=== PATIENT | male | born 1940 | race Caucasian/White ===

== ENCOUNTER → 2017-08-25 | Outpatient (CLI) | payer MEDICARE, BC | END | disposition home or self-care (01) | LOC: LABWHC1 07:43 | PROVIDERS: ATTEND Internal Medicine | DX: G52.9 Cranial nerve disorder, unspecified (principal) | CPT/HCPCS: 36415; 82565; 84520 ==

== ENCOUNTER → 2017-08-26 | Outpatient (CLI) | payer MEDICARE, BC ==
--- NOTE | 2017-08-26 08:43 | MR ---
EXAMINATION TYPE: MR brain wo/w con DATE OF EXAM: 08/26/2017 COMPARISON: 11/27/2015 HISTORY: 77-year-old male cranial nerve disorder unspecified, dizziness TECHNIQUE: Multiplanar, multisequence images of the brain and brainstem were acquired before and aft er administration of 7 mL IV Gadavist. Diffusion weighted imaging is performed. FINDINGS: No evidence for acute infarction, hemorrhage, mass, mass effect, midline shift, herniation, effacemen t of basal cisterns, or extra-axial fluid collection. There is moderate generalized supratentorial volume loss with secondary mild ventriculomegaly. Major intracranial flow voids are intact. Dominant left vertebral artery. T2/FLAIR weighted sequences show moderate scattered burden of T2 bright white matter change in both c erebral hemispheres in the subcortical, deep white matter, and periventricular regions. These changes are minimally increased from the prior exam. Midline structures demonstrate partially empty sella and otherwise normal morphology. The craniocerv ical junction is normal. No cerebellopontine angle mass or lesion in the internal auditory canal. Post contrast images demonstrate no evidence of pathologic enhancement. Dural venous sinuses are pat ent. Small mucosal retention cyst along the floor of the right maxillary sinus. Mild mucosal thickening le ft ethmoid air cells. Globes are intact. IMPRESSION: 1. Similar moderate atrophy and mild ex vacuo ventriculomegaly. 2. Moderate scattered T2 bright white matter change, nonspecific, likely relating to changes of chron ic small vessel ischemic disease. Minimally increased from 2016. 3. No CP angle or IAC mass. 4. No abnormal enhancing lesions. No acute intracranial abnormality.
== END | disposition home or self-care (01) ==
LOC: RADMRIMAIN 07:10
PROVIDERS: ATTEND Nurse Practitioner Family
DX: G31.9 Degenerative disease of nervous system, unspecified (principal); R90.82 White matter disease, unspecified; G93.89 Other specified disorders of brain
CPT/HCPCS: 70553; A9581

== ENCOUNTER → 2020-05-08 | Outpatient (CLI) | payer MEDICARE | END | disposition home or self-care (01) | LOC: LABWHC1 11:15 | PROVIDERS: ATTEND Surgery | DX: Z20.822 Contact with and (suspected) exposure to COVID-19 (principal) | CPT/HCPCS: U0003; C9803; U0005 ==

== ENCOUNTER 2020-05-15 08:22 | Day surgery (SDC) | payer MEDICARE ==
[2020-05-13 09:43] VITALS: BMI 20.9
[~2020-05-15 08:22] MED LIST: LACTATED RINGERS 1,000 ML IV SCH; LIDOCAINE 1% (10MG/ML) FOR IV START INTRADERMA PRN
[2020-05-15 09:02] VITALS: TEMP 97.9
[2020-05-15] MEDS ORDERED: PHENYLEPHRINE-0.9% NACL SYG 1,000 MCG/10 ML SYRINGE ONE (09:02)
[2020-05-15] MEDS ORDERED: PROPOFOL 10 MG/ML 20 ML VIAL IV ONE (09:02)
--- NOTE | 2020-05-15 09:05 | P.GSHP ---
History of Present Illness H&P Date: 05/15/20 80-year-old male presents today for a colonoscopy. He has had a recent positive ColoGuard test. He admits to a small amount of blood in his stool. His last colonoscopy was approximately 6 years ago. 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,parkinson's,gout,vaccinated w/ both covid vaccines,glaucoma liza eyes,prostate CA History of Any Multi-Drug Resistant Organisms: None Reported Past Surgical History: Hernia Repair, Prostate Surgery Additional Past Surgical History / Comment(s): prostatectomy Past Anesthesia/Blood Transfusion Reactions: No Reported Reaction Smoking Status: Never smoker - Past Family History Mother Family Medical History: No Reported History Father Family Medical History: Cancer Additional Family Medical History / Comment(s): blood CA Medications and Allergies Home Medications Medication Instructions Recorded Confirmed Type Cholecalciferol [Vitamin D3 (25 25 mcg PO DAILY 05/13/20 05/13/20 History Mcg = 1000 Iu)] Donepezil HCl [Aricept] 10 mg PO HS 05/13/20 05/13/20 History Ginkgo Biloba [place] Extract [Ginkgo 120 mg PO DAILY 05/13/20 05/13/20 History Biloba] Latanoprost Ophth [Xalatan 0.005%] 1 drops BOTH EYES HS 05/13/20 05/13/20 History Memantine HCl 10 mg PO BID 05/13/20 05/13/20 History Naproxen Sodium [Aleve] 220 mg PO BID 05/13/20 05/13/20 History Psyllium Husk (with Sugar) 1 tsp PO HS 05/13/20 05/13/20 History [Metamucil Powder] Purge Supplement 2 tab PO DAILY 05/13/20 05/13/20 History Timolol 0.5% Ophth Soln [Timoptic 1 drop BOTH EYES QAM 05/13/20 05/13/20 History 0.5% Ophth Soln] Turmeric Root Extract [Turmeric] 3,000 mg PO DAILY 05/13/20 05/13/20 History Vitamin B-50 1 tab PO DAILY 05/13/20 05/13/20 History polyethylene glycoL 3350 [Miralax] 17 gm PO HS 05/13/20 05/13/20 History Allergies Allergy/AdvReac Type Severity Reaction Status Date / Time No Known Allergies Allergy Verified 05/15/20 08:41 Surgical - Exam Osteopathic Statement: *. No significant issues noted on an osteopathic structural exam other than those noted in the History and Physical/Consult. Vital Signs Temp Pulse Resp BP Pulse Ox 97.9 F 60 18 142/79 97 05/15/20 09:00 05/15/20 09:00 05/15/20 09:00 05/15/20 09:00 05/15/20 09:00 - General well developed, well nourished - ENT decreased hearing - Neck trachea midline - Abdomen Abdomen: soft, non tender - Psychiatric oriented to time, oriented to person, oriented to place Assessment and Plan Plan: 80-year-old male with positive Cologuard test. Plan is for colonoscopy. Risks, benefits and alternatives were provided to the patient. He did provide consent prior to attending the endoscopy suite.
--- NOTE | 2020-05-15 09:29 | P.PCN ---
Date of Procedure: 05/15/20 Preoperative Diagnosis: Positive Cologuard test Postoperative Diagnosis: Sigmoid colon polyp Diverticulosis Procedure(s) Performed: Colonoscopy with hot snare polypectomy Anesthesia: MAC Surgeon: Cayla Castillo Pathology: other (Sigmoid colon polyp) Condition: stable Disposition: same day Indications for Procedure: 80-year-old male with recent positive cologuard test. He also admits to occasional small amount of blood in his stool. Last colonoscopy was 6 years ago. Risks, benefits and alternatives to the procedure were provided to the patient. He did provide consent prior to attending the endoscopy suite. Operative Findings: Sigmoid colon polyp Diverticulosis Description of Procedure: The patient was brought into the endoscopy suite. He was then placed in left lateral decubitus position and adequate sedation was achieved using conscious sedation. A digital rectal exam was performed and mild internal hemorrhoids were palpated. An endoscope was then placed in the rectum and advanced to the cecum as identified by landmarks including the appendiceal orifice and the ileocecal valve. The prep was good. The colonoscope was then slowly withdrawn, examining for any mucosal abnormalities. The cecum, ascending, transverse, descending and sigmoid colon were visualized adequately. There were no large neoplastic lesions throughout the colon. A small polyp was noted in the sigmoid colon. This was removed with hot snare polypectomy. Significant amount of diverticulosis was noted scattered throughout the descending and sigmoid colon. Retroflexion was performed in the rectum and internal hemorrhoids were visible. Excess air was removed, the colonoscope withdrawn and the procedure terminated. The patient was then transferred to the recovery unit in stable condition. Repeat colonoscopy should be performed based on patient's symptoms due to his age.
[2020-05-15 09:30] VITALS: RESP 16
[2020-05-15 09:49] VITALS: BP 117/56; PULSE 64
== END 2020-05-15 10:14 | disposition home or self-care (01) ==
LOC: ORWHC2ENDO 08:22
PROVIDERS: ATTEND Surgery
DX: D12.5 Benign neoplasm of sigmoid colon (principal); K57.31 Diverticulosis of large intestine without perforation or abscess with bleeding; H40.9 Unspecified glaucoma; G47.52 REM sleep behavior disorder; G20 Parkinson's disease; F02.80 Dementia in other diseases classified elsewhere, unspecified severity, without behavioral disturbance, psychotic disturbance, mood disturbance, and anxiety; M10.9 Gout, unspecified; Z98.890 Other specified postprocedural states; Z85.46 Personal history of malignant neoplasm of prostate; Z90.79 Acquired absence of other genital organ(s); Z80.7 Family history of other malignant neoplasms of lymphoid, hematopoietic and related tissues; Z79.899 Other long term (current) drug therapy; Z79.1 Long term (current) use of non-steroidal anti-inflammatories (NSAID)
CPT/HCPCS: 88305; 45385; J2370; J2704

== ENCOUNTER 2021-08-22 13:52 | Inpatient (IN) | payer MEDICARE ==
--- NOTE | 2021-08-22 15:01 | ED ---
URI HPI - General Chief Complaint: Upper Respiratory Infection Stated Complaint: SOB, weakness Time Seen by Provider: 08/22/21 14:04 Source: patient, family Mode of arrival: wheelchair Limitations: no limitations - History of Present Illness Initial Comments: Patient is an 81-year-old male with history of Parkinson's presenting with chief complaint of URI-like symptoms. His at bedside states that earlier in the week she came down with cold, and now he is starting to have the same symptoms. He has sounded congested, has been having a cough but he has not been able to produce sputum, and generalized weakness. His states that there has been no sudden change in his mental status. She states that today she noticed he had a fever. Denies any chest pain, shortness of breath, sore throat, dysphagia, headache, vision or hearing changes, abdominal pain, vomiting, diarrhea, dysuria, hematuria. - Related Data Home Medications Medication Instructions Recorded Confirmed Cholecalciferol [Vitamin D3 (25 25 mcg PO DAILY 05/13/20 05/15/20 Mcg = 1000 Iu)] Donepezil HCl [Aricept] 10 mg PO HS 05/13/20 05/15/20 Latanoprost Ophth [Xalatan 0.005%] 1 drops BOTH EYES HS 05/13/20 05/15/20 Memantine HCl 10 mg PO BID 05/13/20 05/15/20 Timolol 0.5% Ophth Soln [Timoptic 1 drop BOTH EYES QA 05/13/20 05/15/20 0.5% Ophth Soln] Turmeric Root Extract [Turmeric] 3,000 mg PO DAILY 05/13/20 05/15/20 Vitamin B-50 1 tab PO DAILY 05/13/20 05/15/20 polyethylene glycoL 3350 [Miralax] 17 gm PO HS 05/13/20 05/15/20 Carbidopa-Levodopa 25-100 mg 1 tab PO DAILY@0800 08/22/21 08/22/21 [Sinemet 25-100] Carbidopa-Levodopa 25-100 mg 2 tab PO DAILY@1300 08/22/21 08/22/21 [Sinemet 25-100] Ginkgo Biloba [place] Extract [Ginkgo 125 mg PO DAILY 08/22/21 08/22/21 Biloba] allopurinoL [Allopurinol] 100 mg PO W/SUPPER 08/22/21 08/22/21 Allergies Allergy/AdvReac Type Severity Reaction Status Date / Time No Known Allergies Allergy Verified 08/22/21 16:06 Review of Systems ROS Statement: Those systems with pertinent positive or pertinent negative responses have been documented in the HPI. ROS Other: All systems not noted in ROS Statement are negative. Past Medical History Past Medical History: Dementia Additional Past Medical History / Comment(s): Parkinson History of Any Multi-Drug Resistant Organisms: None Reported Past Surgical History: Hernia Repair, Prostate Surgery Past Psychological History: No Psychological Hx Reported Smoking Status: Never smoker Past Alcohol Use History: None Reported Past Drug Use History: None Reported General Exam Limitations: altered mental status (Due to Parkinson's), physical limitation (Due to Parkinson's) General appearance: alert, in no apparent distress Head exam: Present: atraumatic, normocephalic, normal inspection Eye exam: Present: normal appearance, EOMI. Absent: scleral icterus ENT exam: Present: normal exam, normal oropharynx, mucous membranes moist, TM's normal bilaterally, normal external ear exam Neck exam: Present: normal inspection. Absent: tenderness Respiratory exam: Present: rales. Absent: respiratory distress, wheezes, rhonchi, stridor Cardiovascular Exam: Present: regular rate, normal rhythm, normal heart sounds. Absent: systolic murmur, diastolic murmur, rubs, gallop, clicks GI/Abdominal exam: Present: soft, normal bowel sounds. Absent: distended, tenderness, guarding, rebound, rigid Extremities exam: Present: normal inspection, full ROM. Absent: tenderness Neurological exam: Present: alert, altered ( and son at bedside states that this is his baseline), CN II-XII intact Expanded Speech: Present: fluid speech Cranial nerves: EOM's Intact: Normal, Tongue Deviation: Normal, Facial Sensation: Normal Motor strength exam: RUE: 5, LUE: 5, RLE: 5, LLE: 5 Eye Response: (4) open spontaneously Motor Response: (6) obeys commands Verbal Response: (5) oriented [place] Total: 15 Psychiatric exam: Present: normal affect, normal mood Skin exam: Present: warm, dry, intact, normal color. Absent: rash Course Vital Signs 08/22/21 08/22/21 13:59 17:35 Temperature 98.9 F Pulse Rate 88 78 Respiratory 22 18 Rate Blood Pressure 145/79 141/96 O2 Sat by Pulse 98 97 Oximetry Medical Decision Making - Medical Decision Making Patient is an 81-year-old male with history of Parkinson's presenting with chief complaint of fever and productive cough. His who is has recently been ill states that he is also had some increased generalized weakness. On examination there are some rales on auscultation of the lungs. At this time he is afebrile. He is negative for Covid and influenza. Chest x-ray suggests congestive heart failure with small pleural effusions, atheromatous aorta. Acute pneumonia is not excluded. Lab work obtained shows no elevated white count, BNP and troponin are WNL. Creatinine BUN a mildly elevated, no recent values for comparison. Given the patient's presentation, I feel this is more likely pneumonia, and given his advanced age in Parkinson's, I feel his best outcome would come from inpatient admission. I spoke to Harper Torres from [facility] who agreed to admit the patient. I discussed this plan with the patient and his family, they conveyed verbal understanding and agreed to the plan. I discussed this case with my attending Dr. Escalona. - Lab Data Result diagrams: 08/22/21 15:48 08/22/21 15:48 Lab Results 08/22/21 08/22/21 08/22/21 Range/Units 14:32 14:32 15:20 WBC (3.8-10.6) k/uL RBC (4.30-5.90) m/uL Hgb (13.0-17.5) gm/dL Hct (39.0-53.0) % MCV (80.0-100.0) fL MCH (25.0-35.0) pg MCHC (31.0-37.0) g/dL RDW (11.5-15.5) % Plt Count (150-450) k/uL MPV Neutrophils % % Lymphocytes % % Monocytes % % Eosinophils % % Basophils % % Neutrophils # (1.3-7.7) k/uL Lymphocytes # (1.0-4.8) k/uL Monocytes # (0-1.0) k/uL Eosinophils # (0-0.7) k/uL Basophils # (0-0.2) k/uL Sodium (137-145) mmol/L Potassium (3.5-5.1) mmol/L Chloride (98-107) mmol/L Carbon Dioxide (22-30) mmol/L Anion Gap mmol/L BUN (9-20) mg/dL Creatinine (0.66-1.25) mg/dL Est GFR (CKD-EPI)AfAm (>60 ml/min/1.73 sqM) Est GFR (CKD-EPI)NonAf (>60 ml/min/1.73 sqM) Glucose (74-99) mg/dL Plasma Lactic Acid Calvin (0.7-2.0) mmol/L Calcium (8.4-10.2) mg/dL Total Bilirubin (0.2-1.3) mg/dL AST (17-59) U/L ALT (4-49) U/L Alkaline Phosphatase (38-126) U/L Troponin I (0.000-0.034) ng/mL NT-Pro-B Natriuret Pep pg/mL Total Protein (6.3-8.2) g/dL Albumin (3.5-5.0) g/dL Urine Color Yellow Urine Appearance Clear (Clear) Urine pH 6.5 (5.0-8.0) Ur Specific [place] 1.013 (1.001-1.035) Urine Protein Negative (Negative) Urine Glucose (UA) Negative (Negative) Urine Ketones Negative (Negative) Urine Blood Negative (Negative) Urine Nitrite Negative (Negative) Urine Bilirubin Negative (Negative) Urine Urobilinogen <2.0 (<2.0) mg/dL Ur Leukocyte Esterase Negative (Negative) Coronavirus (PCR) Not Detected (Not Detectd) Influenza Type A RNA Not Detected (Not Detectd) Influenza Type B (PCR) Not Detected (Not Detectd) 08/22/21 08/22/21 08/22/21 Range/Units 15:48 15:48 15:48 WBC 5.5 (3.8-10.6) k/uL RBC 4.53 (4.30-5.90) m/uL Hgb 13.7 (13.0-17.5) gm/dL Hct 40.9 (39.0-53.0) % MCV 90.3 (80.0-100.0) fL MCH 30.3 (25.0-35.0) pg MCHC 33.5 (31.0-37.0) g/dL RDW 12.4 (11.5-15.5) % Plt Count 183 (150-450) k/uL MPV 8.0 Neutrophils % 68 % Lymphocytes % 9 % Monocytes % 13 % Eosinophils % 4 % Basophils % 3 % Neutrophils # 3.7 (1.3-7.7) k/uL Lymphocytes # 0.5 L (1.0-4.8) k/uL Monocytes # 0.7 (0-1.0) k/uL Eosinophils # 0.2 (0-0.7) k/uL Basophils # 0.2 (0-0.2) k/uL Sodium 138 (137-145) mmol/L Potassium 4.6 (3.5-5.1) mmol/L Chloride 103 (98-107) mmol/L Carbon Dioxide 27 (22-30) mmol/L Anion Gap 8 mmol/L BUN 26 H (9-20) mg/dL Creatinine 1.29 H (0.66-1.25) mg/dL Est GFR (CKD-EPI)AfAm 60 (>60 ml/min/1.73 sqM) Est GFR (CKD-EPI)NonAf 52 (>60 ml/min/1.73 sqM) Glucose 89 (74-99) mg/dL Plasma Lactic Acid Calvin 1.2 (0.7-2.0) mmol/L Calcium 8.6 (8.4-10.2) mg/dL Total Bilirubin 0.3 (0.2-1.3) mg/dL AST 28 (17-59) U/L ALT 14 (4-49) U/L Alkaline Phosphatase 69 (38-126) U/L Troponin I (0.000-0.034) ng/mL NT-Pro-B Natriuret Pep pg/mL Total Protein 6.9 (6.3-8.2) g/dL Albumin 3.9 (3.5-5.0) g/dL Urine Color Urine Appearance (Clear) Urine pH (5.0-8.0) Ur Specific [place] (1.001-1.035) Urine Protein (Negative) Urine Glucose (UA) (Negative) Urine Ketones (Negative) Urine Blood (Negative) Urine Nitrite (Negative) Urine Bilirubin (Negative) Urine Urobilinogen (<2.0) mg/dL Ur Leukocyte Esterase (Negative) Coronavirus (PCR) (Not Detectd) Influenza Type A RNA (Not Detectd) Influenza Type B (PCR) (Not Detectd) 08/22/21 08/22/21 Range/Units 15:48 15:48 WBC (3.8-10.6) k/uL RBC (4.30-5.90) m/uL Hgb (13.0-17.5) gm/dL Hct (39.0-53.0) % MCV (80.0-100.0) fL MCH (25.0-35.0) pg MCHC (31.0-37.0) g/dL RDW (11.5-15.5) % Plt Count (150-450) k/uL MPV Neutrophils % % Lymphocytes % % Monocytes % % Eosinophils % % Basophils % % Neutrophils # (1.3-7.7) k/uL Lymphocytes # (1.0-4.8) k/uL Monocytes # (0-1.0) k/uL Eosinophils # (0-0.7) k/uL Basophils # (0-0.2) k/uL Sodium (137-145) mmol/L Potassium (3.5-5.1) mmol/L Chloride (98-107) mmol/L Carbon Dioxide (22-30) mmol/L Anion Gap mmol/L BUN (9-20) mg/dL Creatinine (0.66-1.25) mg/dL Est GFR (CKD-EPI)AfAm (>60 ml/min/1.73 sqM) Est GFR (CKD-EPI)NonAf (>60 ml/min/1.73 sqM) Glucose (74-99) mg/dL Plasma Lactic Acid Calvin (0.7-2.0) mmol/L Calcium (8.4-10.2) mg/dL Total Bilirubin (0.2-1.3) mg/dL AST (17-59) U/L ALT (4-49) U/L Alkaline Phosphatase (38-126) U/L Troponin I <0.012 (0.000-0.034) ng/mL NT-Pro-B Natriuret Pep 325 pg/mL Total Protein (6.3-8.2) g/dL Albumin (3.5-5.0) g/dL Urine Color Urine Appearance (Clear) Urine pH (5.0-8.0) Ur Specific [place] (1.001-1.035) Urine Protein (Negative) Urine Glucose (UA) (Negative) Urine Ketones (Negative) Urine Blood (Negative) Urine Nitrite (Negative) Urine Bilirubin (Negative) Urine Urobilinogen (<2.0) mg/dL Ur Leukocyte Esterase (Negative) Coronavirus (PCR) (Not Detectd) Influenza Type A RNA (Not Detectd) Influenza Type B (PCR) (Not Detectd) Disposition Clinical Impression: Pneumonia Disposition: ADMITTED IP TO THIS [facility] Condition: Good Is patient prescribed a controlled substance at d/c from ED?: No Referrals: Valencia Bolivar MD [Primary Care Provider] - 1-2 days Time of Disposition: 17:54 Decision to Admit Reason: Admit from EC Decision Date: 08/22/21 Decision Time: 17:54
--- NOTE | 2021-08-22 15:18 | XR ---
EXAMINATION TYPE: XR chest 2V DATE OF EXAM: 08/22/2021 COMPARISON: NONE HISTORY: Cough TECHNIQUE: 2 views FINDINGS: Heart is enlarged. There is some pulmonary vascular congestion. There is blunting of the co stophrenic angles. IMPRESSION: Congestive heart failure with small pleural effusions. Atheromatous aorta. Acute pneumoni a not excluded.
[2021-08-22 15:43] LABS: Appearance,Urine Clear (Clear); Bilirubin,Urine Negative (Negative); Blood,Urine Negative (Negative); Color,Urine Yellow; Glucose,Urine (UA) Negative (Negative); Ketones,Urine Negative (Negative); Leukocyte Esterase,Urine Negative (Negative); Nitrite,Urine Negative (Negative); PH, Urine 6.5 (5.0-8.0); Protein,Urine Negative (Negative); Specific Gravity,Urine 1.013 (1.001-1.035); Urobilinogen,Urine <2.0 mg/dL (<2.0)
[2021-08-22 16:23] LABS: Albumin 3.9 g/dL (3.5-5.0); Calcium 8.6 mg/dL (8.4-10.2); Potassium 4.6 mmol/L (3.5-5.1); Total Bilirubin 0.3 mg/dL (0.2-1.3); Total Protein 6.9 g/dL (6.3-8.2)
[2021-08-22 16:33] LABS: Basophils # (A) 0.2 k/uL (0-0.2); Basophils % (A) 3 %; Eosinophils # (A) 0.2 k/uL (0-0.7); Eosinophils % (A) 4 %; HCT 40.9 % (39.0-53.0); HGB 13.7 gm/dL (13.0-17.5); Lymphocytes # (A) 0.5 k/uL (1.0-4.8); Lymphocytes % (A) 9 %; MCH 30.3 pg (25.0-35.0); MCHC 33.5 g/dL (31.0-37.0); MCV 90.3 fL (80.0-100.0); Monocytes # (A) 0.7 k/uL (0-1.0); Monocytes % (A) 13 %; Neutrophils # (A) 3.7 k/uL (1.3-7.7); Neutrophils % (A) 68 %; Platelet Count 183 k/uL (150-450); RBC 4.53 m/uL (4.30-5.90); RDW 12.4 % (11.5-15.5); WBC 5.5 k/uL (3.8-10.6)
[2021-08-22] MEDS ORDERED: cefTRIAXone IN SWFI 1,000 MG/10 ML SYRINGE IVP STA (17:44)
[2021-08-22] MEDS ORDERED: IBUPROFEN 400 MG TAB PO PRN (17:52)
[2021-08-22] MEDS ORDERED: NALOXONE 0.4 MG/ML 1 ML VIAL IV PRN (17:52)
[2021-08-22] MEDS: SODIUM CHLORIDE 0.9% 1,000 ML IV SCH (18:42)
[2021-08-22] MEDS ORDERED: DONEPEZIL 10 MG TAB PO SCH (21:15)
[2021-08-22] MEDS: allopurinoL 100 MG TAB PO SCH (22:51)
[2021-08-22] MEDS: MEMANTINE 10 MG TAB PO SCH (22:51)
[2021-08-22] MEDS: polyethylene glycoL 3350 17 GM POWD.PACK PO SCH (22:52)
[2021-08-22] MEDS: LATANOPROST 0.005% OPHTH DROPS 2.5 ML BTL BOTH EYES SCH (22:52)
[2021-08-23 07:05] LABS: Basophils # (A) 0.1 k/uL (0-0.2); Basophils % (A) 3 %; Eosinophils # (A) 0.1 k/uL (0-0.7); Eosinophils % (A) 3 %; HCT 39.9 % (39.0-53.0); HGB 13.4 gm/dL (13.0-17.5); Lymphocytes # (A) 0.6 k/uL (1.0-4.8); Lymphocytes % (A) 14 %; MCH 30.2 pg (25.0-35.0); MCHC 33.7 g/dL (31.0-37.0); MCV 89.4 fL (80.0-100.0); Monocytes # (A) 0.6 k/uL (0-1.0); Monocytes % (A) 13 %; Neutrophils # (A) 2.8 k/uL (1.3-7.7); Neutrophils % (A) 63 %; Platelet Count 172 k/uL (150-450); RBC 4.46 m/uL (4.30-5.90); RDW 12.2 % (11.5-15.5); WBC 4.5 k/uL (3.8-10.6)
[2021-08-23 07:16] LABS: ALT 16 U/L (4-49); AST 26 U/L (17-59); African American GFR (CKD) 67 (>60 ml/min/1.73 sqM); Albumin 3.5 g/dL (3.5-5.0); Albumin/Globulin Ratio 1.3; Alkaline Phosphatase 65 U/L (38-126); Anion Gap 8 mmol/L; Blood Urea Nitrogen 17 mg/dL (9-20); Calcium 8.4 mg/dL (8.4-10.2); Carbon Dioxide 26 mmol/L (22-30); Chloride 105 mmol/L (98-107); Globulin 2.7 g/dL; Glucose 95 mg/dL (74-99); Non-African American GFR(CKD) 58 (>60 ml/min/1.73 sqM); Potassium 4.3 mmol/L (3.5-5.1); Sodium 139 mmol/L (137-145); Total Bilirubin 0.3 mg/dL (0.2-1.3); Total Protein 6.2 g/dL (6.3-8.2)
[2021-08-23 07:42] LABS: Magnesium 1.8 mg/dL (1.6-2.3)
[2021-08-23] MEDS: DONEPEZIL 10 MG TAB PO SCH (08:43)
[2021-08-23] MEDS: CARBIDOPA-LEVODOPA 25-100 MG 1 EACH TAB PO SCH ×2 (08:43→13:38)
[2021-08-23] MEDS: MEMANTINE 10 MG TAB PO SCH ×2 (08:43→19:57)
[2021-08-23] MEDS: CHOLECALCIFEROL 25 MCG (1000 IU) TABLET PO SCH (08:43)
[2021-08-23] MEDS: TIMOLOL 0.5% OPHTH DROPS 5 ML BTL BOTH EYES SCH (08:44)
[2021-08-23] MEDS ORDERED: GINKGO BILOBA LEAF EXTRACT PO SCH (09:00)
[2021-08-23] MEDS ORDERED: NON FORMULARY DRUG (Turmeric Root Extract [Turmeric] 500 MG Capsule) PO SCH (09:00)
[2021-08-23] MEDS ORDERED: VITAMIN B50 PO SCH (09:00)
--- NOTE | 2021-08-23 10:19 | P.HPIM ---
History of Present Illness This is a pleasant 81 minute with past medical history of : Dementia, Pneumonia, Prostate Disorder status post prostate surgical removal, Parkinson disease Presents because of cough and subjective fever and generalized weakness. Patient somewhat disappointed historian and information was obtained with the help of his son they'll at bedside. Family stated that patient has been complaining of from cough as well as his , so they took him to the clinic in [place] which referred him to the hospital for his weakness. As per son patient has been having this cough and for the last 3 days and it is associated in the beginning with sore throat. Also he had some runny nose but the son states that this is a chronic. Currently no sore throat, no chest pain or dyspnea at rest. Patient denies fever. No diarrhea or vomiting Her family stated that patient have difficulty getting up from chair or walking, he started using her walker the last few days Also patient looks confused. The family also does not look much concerned because this been happening up and down. Patient knows he is in the hospital but could not tell which hospital or sitting, he is disoriented to time and person. He thought his son they'll at bedside is his brother Johnny. Patient also has no insight into his illness Patient also has history of Parkinson disease for many years, he has mild resting tremor today. Patient also complaining of from difficulty passing urine but no dysuria. No smoking, alcohol or illicit tracts Patient is hemodynamically stable. He is afebrile. Labs including CBC showed only mild lymphopenia, BMP showing mildly elevated creatinine 1.29 compared to baseline of 1.1. Rest of BMP and liver enzymes are unremarkable. Troponin is negative less than 0.012. ProBNP is negative at 325. Urinalysis is negative. Coronavirus and influenza viruses are undetected EKG showing junctional rhythm While chest x-ray showing congestive heart failure with small pleural effusion as per report On admission patient received 1 dose of ceftriaxone. He was started on Review of Systems CONSTITUTIONAL: No fever, no malaise, no fatigue. HEENT: No recent visual problems or hearing problems. Denied any sore throat. CARDIOVASCULAR: No orthopnea, PND, no palpitations, no syncope. PULMONARY: No shortness of breath, no cough, no hemoptysis. GASTROINTESTINAL: No diarrhea, no nausea, no vomiting, no abdominal pain. Normoactive bowel sounds. NEUROLOGICAL: No headaches, no weakness, no numbness. HEMATOLOGICAL: Denies any bleeding or petechiae. GENITOURINARY: Denies any burning micturition, frequency, or urgency. MUSCULOSKELETAL/RHEUMATOLOGICAL: Denies any joint pain, swelling, or any muscle pain. ENDOCRINE: Denies any polyuria or polydipsia. Past Medical History Past Medical History: Cancer, Dementia, Pneumonia, Prostate Disorder Additional Past Medical History / Comment(s): Parkinson, skin cancer removed; prostate removed History of Any Multi-Drug Resistant Organisms: None Reported Past Surgical History: Hernia Repair, Prostate Surgery Additional Past Surgical History / Comment(s): skin cancer removal Past Anesthesia/Blood Transfusion Reactions: No Reported Reaction Past Psychological History: No Psychological Hx Reported Smoking Status: Never smoker Past Alcohol Use History: None Reported Past Drug Use History: None Reported Medications and Allergies Home Medications Medication Instructions Recorded Confirmed Type Cholecalciferol [Vitamin D3 (25 50 mcg PO DAILY 05/13/20 08/22/21 History Mcg = 1000 Iu)] Donepezil HCl [Aricept] 10 mg PO HS 05/13/20 08/22/21 History Latanoprost Ophth [Xalatan 0.005%] 1 drops BOTH EYES HS 05/13/20 08/22/21 History Memantine HCl 10 mg PO BID 05/13/20 08/22/21 History Timolol 0.5% Ophth Soln [Timoptic 1 drop BOTH EYES DAILY 05/13/20 08/22/21 History 0.5% Ophth Soln] Turmeric Root Extract [Turmeric] 1,000 mg PO DAILY 05/13/20 08/22/21 History Vitamin B-50 1 tab PO DAILY 05/13/20 08/22/21 History polyethylene glycoL 3350 [Miralax] 17 gm PO HS 05/13/20 08/22/21 History Carbidopa-Levodopa 25-100 mg 1 tab PO DAILY@0800 08/22/21 08/22/21 History [Sinemet 25-100] Carbidopa-Levodopa 25-100 mg 2 tab PO DAILY@1300 08/22/21 08/22/21 History [Sinemet 25-100] Ginkgo Biloba [place] Extract [Ginkgo 125 mg PO DAILY 08/22/21 08/22/21 History Biloba] Psyllium Husk (with Sugar) 1 dose PO HS 08/22/21 08/22/21 History [Metamucil Powder] allopurinoL [Allopurinol] 100 mg PO W/SUPPER 08/22/21 08/22/21 History Allergies Allergy/AdvReac Type Severity Reaction Status Date / Time No Known Allergies Allergy Verified 08/22/21 16:06 Physical Exam Vitals: Vital Signs Temp Pulse Pulse Resp BP BP Pulse Ox 08/23/21 05:09 97.8 F 79 16 137/74 94 L 08/22/21 22:23 98.3 F 75 16 155/89 96 08/22/21 21:36 85 18 157/68 95 08/22/21 17:35 78 18 141/96 97 08/22/21 13:59 98.9 F 88 22 145/79 98 Intake and Output 08/22/21 08/22/21 08/23/21 14:59 22:59 06:59 Intake Total 710 Balance 710 Intake: Oral 710 Other: Voiding Method Urinal Diaper Incontinent # Voids 1 Weight 72.575 kg 53 kg -GENERAL: The patient is alert and oriented x1 partially to time, not in any acute distress. under developed HEENT: Pupils are round and equally reacting to light. EOMI. No scleral icterus. No conjunctival pallor. Normocephalic, atraumatic. No pharyngeal erythema. No thyromegaly. CARDIOVASCULAR: S1 and S2 present. No murmurs, rubs, or gallops. -PULMONARY: Chest is clear to auscultation, no wheezing or crackles. Normal basal crepitation ABDOMEN: Soft, nontender, nondistended, normoactive bowel sounds. No palpable organomegaly. MUSCULOSKELETAL: No joint swelling or deformity. EXTREMITIES: No cyanosis, clubbing, or pedal edema. -NEUROLOGICAL: Gross neurological examination did not reveal any focal deficits. Patient is confused, he follows commands. Cranial nerves are grossly intact. Strength is 5/5 in all extremities and sensation is intact. SKIN: No rashes. No petechiae Results CBC & Chem 7: 08/23/21 05:50 08/23/21 05:50 Labs: Abnormal Lab Results - Last 24 Hours (Table) 08/22/21 08/22/21 Range/Units 15:48 15:48 Lymphocytes # 0.5 L (1.0-4.8) k/uL BUN 26 H (9-20) mg/dL Creatinine 1.29 H (0.66-1.25) mg/dL Thrombosis Risk Factor Assmnt - Choose All That Apply Any of the Below Risk Factors Present?: No Other Risk Factors: Yes Each Risk Factor Represents 3 Points: Age 75 years or older Other congenital or acquired thrombophilia - If yes, enter type in comment: No Thrombosis Risk Factor Assessment Total Risk Factor Score: 3 Thrombosis Risk Factor Assessment Level: Moderate Risk Assessment and Plan Assessment: Bilateral respiratory infiltrate suspicious for community acquired pneumonia. Call influenza and covid vv are negative. Altered mental status most likely indwelling encephalopathy Generalized weakness and deconditioning Mild acute kidney injury and dehydration Alzheimer dementia History of Parkinson disease History of prostate disease status post surgical removal of the prostate History of pneumonia Plan: This is a pleasant 81 old male who presents with pneumonia and metabolic encephalopathy Continuous ceftriaxone and doxycycline Repeat labs and check pro-calcitonin and BNP ceftriaxone and doxycycline. Check CT of the brain labs and medication were reviewed.. Continue same treatment. Continue with symptomatic treatment. Resume home medication. Monitor lytes and vitals. DVT and GI prophylaxis. Further recommendations depends on the clinical course of the patient DVT prophylaxis: Subcutaneous heparin GI Prophylaxis: Pepcid PT/OT: Pending Prognosis is guarded
[2021-08-23 12:31] VITALS: BMI 20.4
--- NOTE | 2021-08-23 12:35 | CT ---
EXAMINATION TYPE: CT brain wo con DATE OF EXAM: 08/23/2021 COMPARISON: MRI dated 08/26/2017 HISTORY: confusion CT DLP: 1187 mGycm Automated exposure control for dose reduction was used. TECHNIQUE: CT scan of the brain is performed without IV contrast administration. FINDINGS: Central and cortical brain volume loss changes, possibly age-related however neurodegenerative diseas e cannot be excluded. Bilateral cerebral white matter hypodensities, likely representing chronic micr ovascular ischemic changes. Left external capsule hypodensity, possibly ischemic. Scattered arterial atherosclerotic calcificatio ns. No acute intracranial hemorrhage. No gross acute cortical infarct. No midline shift or herniation . Unremarkable basal cisterns, sella and CP angles. No gross space-occupying lesion, vasogenic edema or mass effect. Unremarkable orbits. Mucosal thickening of the right maxillary sinus and right ethmoid air cells. Mil d opacification of the left inferior mastoid air cells. Osteopenia. IMPRESSION: No acute intracranial hemorrhage or gross acute cortical infarct. Brain volume loss changes and suspe cted chronic microvascular ischemic changes with other chronic and incidental findings as described [place].
[2021-08-23] MEDS: DOXYCYCLINE 100 MG in SODIUM CHLORIDE 0.9% 100 ML IVPB SCH ×2 (12:53→19:56)
[2021-08-23] MEDS: SODIUM CHLORIDE 0.9% 1,000 ML IV SCH ×2 (12:54→23:08)
[2021-08-23 14:31] LABS: Appearance,Urine Clear (Clear); Bilirubin,Urine Negative (Negative); Blood,Urine Negative (Negative); Color,Urine Light Yellow; Glucose,Urine (UA) Negative (Negative); Ketones,Urine Negative (Negative); Leukocyte Esterase,Urine Negative (Negative); Nitrite,Urine Negative (Negative); Protein,Urine Negative (Negative); Specific Gravity,Urine 1.009 (1.001-1.035); Urobilinogen,Urine <2.0 mg/dL (<2.0)
[2021-08-23] MEDS: FAMOTIDINE 20 MG/2 ML VIAL IV SCH (15:06)
--- NOTE | 2021-08-23 17:20 | CA ---
Transthoracic Echo Report Name: Salazar Medel Age: 81 Gender: M : 1940 Exam Date: 08/23/2021 11:25 Exam Location: [facility] Ht (in): 72 Wt (lb): 116 Ordering Physician: Christopher Mendoza MD Attending/Referring Phys: [id number], Reji Collections Clerk Yanelis Early, [facility] Procedure CPT: Indications: Rule out heart disease Cardiac Hx: Technical Quality: Fair Contrast 1: Total Dose (mL): Contrast 2: Total Dose (mL): MEASUREMENTS (Male / Female) Normal Values 2D ECHO LV Diastolic Diameter PLAX 4.5 cm 4.2 - 5.9 / 3.9 - 5.3 cm LV Systolic Diameter PLAX 2.8 cm IVS Diastolic Thickness 1.1 cm 0.6 - 1.0 / 0.6 - 0.9 cm LVPW Diastolic Thickness 1.4 cm 0.6 - 1.0 / 0.6 - 0.9 cm LV Relative Wall Thickness 0.5 RV Internal Dim ED PLAX 2.8 cm LA Volume 43.0 cm??? 18 - 58 / 22 - 52 cm??? M-MODE Aortic Root Diameter MM 2.6 cm LA Systolic Diameter MM 3.6 cm LA Ao Ratio MM 1.4 AV Cusp Separation MM 1.8 cm DOPPLER AV Peak Velocity 117.8 cm/s AV Peak Gradient 5.5 mmHg AI Peak Velocity 457.4 cm/s AI Peak Gradient 83.7 mmHg AI Pressure Half Time 664.5 ms LVOT Peak Velocity 83.0 cm/s LVOT Peak Gradient 2.8 mmHg MV Area PHT 3.5 cm??? Mitral E Point Velocity 60.3 cm/s Mitral A Point Velocity 58.2 cm/s Mitral E to A Ratio 1.0 MV Deceleration Time 215.0 ms TR Peak Velocity 180.8 cm/s TR Peak Gradient 13.1 mmHg Right Ventricular Systolic Press 18.1 mmHg FINDINGS Left Ventricle Mildly increased left ventricular wall thickness. Normal left ventricular systolic function with no obvious regional wall motion abnormalities. Left ventricular ejection fraction is estimated at 55-60 %. Right Ventricle Normal right ventricular size and function. Right ventricular systolic pressure within normal limits. Right Atrium Right atrium not well visualized. Left Atrium Normal left atrial size. No evidence for an atrial septal defect. Mitral Valve Structurally normal mitral valve. Trace to mild mitral regurgitation. Aortic Valve Trileaflet aortic valve. Mild aortic regurgitation. Tricuspid Valve Mild tricuspid regurgitation. Pulmonic Valve Structurally normal pulmonic valve. Trace pulmonic regurgitation. Pericardium No pericardial effusion. Aorta Normal size aortic root and proximal ascending aorta. CONCLUSIONS Normal LV systolic function and mild aortic regurgitation Previewed by: Dr. John Kruger MD (Electronically Signed) Final Date: 23 August 2021 17:19
[2021-08-23] MEDS: allopurinoL 100 MG TAB PO SCH (18:30)
[2021-08-23] MEDS: polyethylene glycoL 3350 17 GM POWD.PACK PO SCH (19:56)
[2021-08-23] MEDS: HEPARIN SODIUM,PORCINE/PF 5,000 UNIT/0.5 ML SYRINGE SQ SCH (19:56)
[2021-08-23] MEDS: LATANOPROST 0.005% OPHTH DROPS 2.5 ML BTL BOTH EYES SCH (19:57)
[2021-08-23] MEDS ORDERED: FAMOTIDINE 20 MG/2 ML VIAL IV SCH (21:00)
[2021-08-24] MEDS: CARBIDOPA-LEVODOPA 25-100 MG 1 EACH TAB PO SCH ×2 (08:49→12:42)
[2021-08-24] MEDS: DONEPEZIL 10 MG TAB PO SCH (08:49)
[2021-08-24] MEDS: CHOLECALCIFEROL 25 MCG (1000 IU) TABLET PO SCH (08:49)
[2021-08-24] MEDS: HEPARIN SODIUM,PORCINE/PF 5,000 UNIT/0.5 ML SYRINGE SQ SCH ×2 (08:50→19:43)
[2021-08-24] MEDS: FAMOTIDINE 20 MG/2 ML VIAL IV SCH (08:50)
[2021-08-24] MEDS: MEMANTINE 10 MG TAB PO SCH ×2 (08:50→19:43)
[2021-08-24 09:43] LABS: African American GFR (CKD) 65.3 (60.0-200.0); Anion Gap 13.1 mmol/L (10.00-18.00); BUN/Creat Ratio 15.25 Ratio (12.00-20.00); Blood Urea Nitrogen 18.3 mg/dL (9.0-27.0); Calcium 8.9 mg/dL (8.7-10.3); Carbon Dioxide 24.9 mmol/L (20.0-27.5); Magnesium 1.9 mg/dL (1.5-2.4); Non-African American GFR(CKD) 56.4 (60.0-200.0)
[2021-08-24 09:44] LABS: Basophils # (A) 0.03 X 10*3/uL (0.00-0.10); Basophils % (A) 0.7 %; Eosinophils # (A) 0.14 X 10*3/uL (0.04-0.35); Eosinophils % (A) 3.4 %; HCT 43.7 % (39.6-50.0); HGB 14.1 g/dL (13.0-17.0); Lymphocytes # (A) 0.76 X 10*3/uL (0.90-5.00); Lymphocytes % (A) 18.4 %; MCH 28.4 pg (27.0-32.0); MCHC 32.3 g/dL (32.0-37.0); MCV 88.1 fL (80.0-97.0); Mean Platelet Volume 10.7 fL (9.5-12.2); Monocytes # (A) 0.77 X 10*3/uL (0.20-1.00); Monocytes % (A) 18.6 %; NRBC Per 100 WBC 0 /100 WBCS (0.0-0.0); Neutrophils % (A) 57.9 %; Platelet Count 205 X 10*3/uL (140-440); RBC 4.96 X 10*6/uL (4.40-5.60); RDW 12.3 % (11.5-14.5); WBC 4.14 X 10*3/uL (4.50-10.00)
[2021-08-24] MEDS: LATANOPROST 0.005% OPHTH DROPS 2.5 ML BTL BOTH EYES SCH (10:07)
[2021-08-24] MEDS: DOXYCYCLINE 100 MG in SODIUM CHLORIDE 0.9% 100 ML IVPB SCH (10:07)
[2021-08-24] MEDS: SODIUM CHLORIDE 0.9% 1,000 ML IV SCH (10:11)
[2021-08-24] MEDS: TIMOLOL 0.5% OPHTH DROPS 5 ML BTL BOTH EYES SCH (12:43)
[2021-08-24 16:57] LABS: Glucose,Whole Blood 102 mg/dL (70-110)
[2021-08-24] MEDS ORDERED: FUROSEMIDE 10 MG/ML 2 ML VIAL IV STA (17:02)
[2021-08-24] MEDS ORDERED: IPRATROPIUM-ALBUTEROL 3 ML NEB INHALATION PRN (17:08)
[2021-08-24] MEDS: methylPREDNISolone SOD SUCCI 40 MG/ML 1 ML VIAL IV SCH (17:16)
[2021-08-24] MEDS: allopurinoL 100 MG TAB PO SCH (17:27)
[2021-08-24] MEDS: PIPERACILLIN-TAZOBACTAM 3.375 GM in SODIUM CHLORIDE 0.9% 100 ML IVPB SCH (17:27)
--- NOTE | 2021-08-24 17:42 | XR ---
EXAMINATION TYPE: XR chest 1V DATE OF EXAM: 08/24/2021 COMPARISON: 08/22/2021 HISTORY: Confusion TECHNIQUE: Single view FINDINGS: There is no heart failure nor confluent pneumonic infiltrate. Costophrenic angles are clear . Thoracic aorta is atheromatous. IMPRESSION: No active cardiopulmonary disease. There is clearing of the pulmonary congestion and inte rstitial edema compared to old exam.
[2021-08-24] MEDS: polyethylene glycoL 3350 17 GM POWD.PACK PO SCH (19:43)
[2021-08-24 19:48] LABS: Glucose,Whole Blood 131 mg/dL (70-110)
[2021-08-24] MEDS: IPRATROPIUM-ALBUTEROL 3 ML NEB INHALATION SCH (20:05)
[2021-08-24] MEDS: BUDESONIDE 1 MG/2 ML NEBU INHALATION SCH (20:06)
--- NOTE | 2021-08-24 20:37 | P.PN ---
Subjective This is a pleasant 81 minute with past medical history of : Dementia, Pneumonia, Prostate Disorder status post prostate surgical removal, Parkinson disease Presents because of cough and subjective fever and generalized weakness. Patient somewhat disappointed historian and information was obtained with the help of his son they'll at bedside. Family stated that patient has been complaining of from cough as well as his , so they took him to the clinic in [place] which referred him to the hospital for his weakness. As per son patient has been having this cough and for the last 3 days and it is associated in the beginning with sore throat. Also he had some runny nose but the son states that this is a chronic. Currently no sore throat, no chest pain or dyspnea at rest. Patient denies fever. No diarrhea or vomiting Her family stated that patient have difficulty getting up from chair or walking, he started using her walker the last few days Also patient looks confused. The family also does not look much concerned because this been happening up and down. Patient knows he is in the hospital but could not tell which hospital or sitting, he is disoriented to time and person. He thought his son they'll at bedside is his brother Johnny. Patient also has no insight into his illness Patient also has history of Parkinson disease for many years, he has mild resting tremor today. Patient also complaining of from difficulty passing urine but no dysuria. No smoking, alcohol or illicit tracts Patient is hemodynamically stable. He is afebrile. Labs including CBC showed only mild lymphopenia, BMP showing mildly elevated creatinine 1.29 compared to baseline of 1.1. Rest of BMP and liver enzymes are unremarkable. Troponin is negative less than 0.012. ProBNP is negative at 325. Urinalysis is negative. Coronavirus and influenza viruses are undetected EKG showing junctional rhythm While chest x-ray showing congestive heart failure with small pleural effusion as per report On admission patient received 1 dose of ceftriaxone. He was started on 08/24/2021 Patient today still confused, he has difficulty holding stop because of his worsening tremors in both upper and lower extremities as well as his head. It looks more stiff. This could be related to his worsening Parkinson before we going to consult neurology service. Repeat chest x-ray showed clearing of pulmonary congestion and interstitial i nfiltrates per radiologist. Echocardiogram showing preserved ejection fraction 55-60%, CT of the brain is negative for acute process. Chest x-ray showed clearing of pulmonary congestion with interstitial infiltrates improved radiologist. Poorcalcitonin is not significantly elevated and it is only at 0.11. No fever. No significant tachycardia or tachypnea. His medication. He was started on Solu-Medrol and antibiotics changed to Zosyn. Also patient will be transferred to Discussed with the son at bedside. Objective - Vital Signs Vital signs: Vital Signs Temp 97.0 F L 08/24/21 05:00 Pulse 77 08/24/21 05:00 Resp 18 08/24/21 05:00 BP 144/99 08/24/21 05:00 Pulse Ox 95 08/24/21 05:00 FiO2 Intake & Output 08/23/21 08/24/21 08/24/21 18:59 06:59 18:59 Intake Total 975 400 Output Total 300 Balance 675 400 Weight 68.422 kg Intake: Intake, IV Titration 975 Amount Doxycycline 100 mg In 100 Sodium Chloride 0.9% 100 ml @ 100 mls/hr IVPB Q12HR [facility] Rx#:[id number] Sodium Chloride 0.9% 1, 825 000 ml @ 75 mls/hr IV . [id number] [facility] Rx#:[id number] cefTRIAXone 1 gm In 50 Sodium Chloride 0.9% 50 ml @ 100 mls/hr IVPB Q24HR [facility] Rx#:[id number] Oral 400 Output: Urine 300 Other: Voiding Method Urinal Diaper Diaper Incontinent Incontinent # Voids 2 4 - Exam -GENERAL: The patient is alert and oriented x1 partially to time, not in any acute distress. under developed and generalized weakness HEENT: Pupils are round and equally reacting to light. EOMI. No scleral icterus. No conjunctival pallor. Normocephalic, atraumatic. No pharyngeal erythema. No thyromegaly. CARDIOVASCULAR: S1 and S2 present. No murmurs, rubs, or gallops. PULMONARY: Chest is clear to auscultation, no wheezing or crackles. ABDOMEN: Soft, nontender, nondistended, normoactive bowel sounds. No palpable organomegaly. MUSCULOSKELETAL: No joint swelling or deformity. EXTREMITIES: No cyanosis, clubbing, or pedal edema. -NEUROLOGICAL: Gross neurological examination did not reveal any focal deficits. Patient is confused, he follows commands. Cranial nerves are grossly intact. Meningeal signs are absent He has some generalized weakness but he denies any numbness SKIN: No rashes. No petechiae - Labs CBC & Chem 7: 08/24/21 05:34 08/24/21 05:34 Labs: Abnormal Lab Results - Last 24 Hours (Table) 08/23/21 08/24/21 08/24/21 Range/Units 05:50 05:34 05:34 WBC 4.14 L (4.50-10.00) X 10*3/uL Lymphocytes # 0.76 L (0.90-5.00) X 10*3/uL Est GFR (CKD-EPI)NonAf 56.4 L (60.0-200.0) Procalcitonin 0.11 H (0.02-0.09) ng/mL Assessment and Plan Assessment: Bilateral respiratory infiltrate suspicious for community acquired pneumonia. Call influenza and covid vv are negative. Altered mental status most likely metabolic encephalopathy Worsening tremor most likely related to Parkinson disease Generalized weakness and deconditioning Mild acute kidney injury and dehydration Alzheimer dementia History of Parkinson disease History of prostate disease status post surgical removal of the prostate History of pneumonia Plan: This is a pleasant 81 old male who presents with pneumonia and metabolic encephalopathy Continuous with antibiotic which is switching to Zosyn continue with Solu-Medrol Chest x-ray is reviewed consult neurology service Transfer the patient to higher level of care at [facility] and [facility] unit Continue with breathing treatment and inhaled steroids labs and medication were reviewed.. Continue same treatment. Continue with symptomatic treatment. Resume home medication. Monitor lytes and vitals. DVT and GI prophylaxis. Further recommendations depends on the clinical course of the patient DVT prophylaxis: Subcutaneous heparin GI Prophylaxis: Pepcid PT/OT: Pending Prognosis is guarded
[2021-08-24] MEDS ORDERED: BENZTROPINE MESYLATE 1 MG TAB PO SCH (22:30)
[2021-08-25] MEDS: PIPERACILLIN-TAZOBACTAM 3.375 GM in SODIUM CHLORIDE 0.9% 100 ML IVPB SCH ×3 (00:11→17:43)
[2021-08-25] MEDS: methylPREDNISolone SOD SUCCI 40 MG/ML 1 ML VIAL IV SCH ×2 (00:12→08:49)
[2021-08-25] MEDS ORDERED: LORazepam 2 MG/ML INJ IV STA (07:16)
[2021-08-25] MEDS ORDERED: LORazepam 2 MG/ML INJ IV PRN (07:16)
[2021-08-25] MEDS: BUDESONIDE 1 MG/2 ML NEBU INHALATION SCH ×2 (07:30→20:04)
[2021-08-25] MEDS: IPRATROPIUM-ALBUTEROL 3 ML NEB INHALATION SCH ×4 (07:30→20:04)
[2021-08-25] MEDS: FAMOTIDINE 20 MG/2 ML VIAL IV SCH (08:09)
[2021-08-25] MEDS: HEPARIN SODIUM,PORCINE/PF 5,000 UNIT/0.5 ML SYRINGE SQ SCH ×2 (08:10→21:26)
--- NOTE | 2021-08-25 08:34 | XR ---
EXAMINATION TYPE: XR chest 1V DATE OF EXAM: 08/25/2021 COMPARISON: X-ray dated 08/24/2021 HISTORY: Shortness of breath TECHNIQUE: Single frontal view of the chest is obtained. FINDINGS: Increased cardiac transverse diameter. No significant pulmonary consolidation. No sizable pleural eff usion or pneumothorax. Aortic atherosclerotic calcifications. Degenerative changes of the thoracic spine. Suspected osteopen ia. IMPRESSION: As above.
--- NOTE | 2021-08-25 09:56 | P.CNNES ---
History of Present Illness Consult date: 08/25/21 Requesting physician: Christopher E Reji Reason for Consult: worsening Parkinson's symptoms History of Present Illness: This is an 81-year-old gentleman with medical history of Parkinson's disease, REM sleep behavior disorder, dementia who presented because of cough fever and generalized weakness. History was obtained from the patient's son (in person) and (via phone). According to the is seems that the patient has been having generalized weakness, cough and fever in the last 1 week. She stated that the patient has history of Parkinson's as well as REM sleep behavior disorder and follows-up with his neurologist (Dr. Correa). She denied that the patient has any seizure in the past. The primary team is that concerning the that the patient is more confused than normal and concerned about seizure. It seems during this hopsital visit primary suspected pneumonia and gave steroids. Patient is on Sinemet 85808 2 tablets daily as well as 55774 tablet daily. Aricept 10 mg daily at bedtime, amantadine 10 mg 1 tablet twice a day. Some of the workup during this admission in our facility consisted of: Patient has been afebrile during this hospital visit. White blood cell has been for the most part within the normal range Chemistry panel is unremarkable. Urinalysis is negative for urinary tract infection. Soto virus PCR was not detected. Influenza A and B is not detected. CT of the head is reported as no acute intracranial hemorrhage or gross acute cortical infarct. Brain volume loss changes and suspected chronic microvascular ischemic changes with other chronic an incidental finding. I personally reviewed the CT of the head and I agree there is no acute or subacute ischemic and there is no truncal hemorrhage. Review of Systems Review of system is limited but the pertinent positive and negative as per HPI. Past Medical History Past Medical History: Cancer, Dementia, Pneumonia, Prostate Disorder Additional Past Medical History / Comment(s): Parkinson, skin cancer removed; prostate removed History of Any Multi-Drug Resistant Organisms: None Reported Past Surgical History: Hernia Repair, Prostate Surgery Additional Past Surgical History / Comment(s): skin cancer removal Past Anesthesia/Blood Transfusion Reactions: No Reported Reaction Past Psychological History: No Psychological Hx Reported Smoking Status: Never smoker Past Alcohol Use History: None Reported Past Drug Use History: None Reported Medications and Allergies Home Medications Medication Instructions Recorded Confirmed Type Cholecalciferol [Vitamin D3 (25 50 mcg PO DAILY 05/13/20 08/22/21 History Mcg = 1000 Iu)] Donepezil HCl [Aricept] 10 mg PO HS 05/13/20 08/22/21 History Latanoprost Ophth [Xalatan 0.005%] 1 drops BOTH EYES HS 05/13/20 08/22/21 History Memantine HCl 10 mg PO BID 05/13/20 08/22/21 History Timolol 0.5% Ophth Soln [Timoptic 1 drop BOTH EYES DAILY 05/13/20 08/22/21 History 0.5% Ophth Soln] Turmeric Root Extract [Turmeric] 1,000 mg PO DAILY 05/13/20 08/22/21 History Vitamin B-50 1 tab PO DAILY 05/13/20 08/22/21 History polyethylene glycoL 3350 [Miralax] 17 gm PO HS 05/13/20 08/22/21 History Carbidopa-Levodopa 25-100 mg 1 tab PO DAILY@0800 08/22/21 08/22/21 History [Sinemet 25-100] Carbidopa-Levodopa 25-100 mg 2 tab PO DAILY@1300 08/22/21 08/22/21 History [Sinemet 25-100] Ginkgo Biloba [place] Extract [Ginkgo 125 mg PO DAILY 08/22/21 08/22/21 History Biloba] Psyllium Husk (with Sugar) 1 dose PO HS 08/22/21 08/22/21 History [Metamucil Powder] allopurinoL [Allopurinol] 100 mg PO W/SUPPER 08/22/21 08/22/21 History Allergies Allergy/AdvReac Type Severity Reaction Status Date / Time No Known Allergies Allergy Verified 08/22/21 16:06 Physical Examination - Vital Signs Vital Signs: Vital Signs Temp Pulse Pulse Resp BP BP Pulse Ox 08/25/21 08:00 97.9 F 72 18 100/63 100 08/25/21 07:47 78 08/25/21 07:35 99 08/25/21 07:30 76 15 08/25/21 04:00 97.8 F 74 18 128/63 97 08/25/21 00:28 98.5 F 90 20 113/62 97 08/24/21 21:45 97.7 F 98 20 121/72 94 L 08/24/21 20:19 72 16 08/24/21 20:06 74 16 08/24/21 20:00 92 20 08/24/21 19:39 98.6 F 92 20 134/89 93 L 08/24/21 17:58 65 148/90 99 08/24/21 17:57 68 172/99 79 L 08/24/21 17:45 71 16 155/94 94 L 08/24/21 17:31 69 16 08/24/21 17:28 97 08/24/21 17:21 67 16 08/24/21 16:55 151/99 85 L 08/24/21 16:50 168/103 90 L 08/24/21 11:50 99.1 F 67 18 115/72 90 L Intake and Output 08/24/21 08/25/21 08/25/21 22:59 06:59 14:59 Other: Voiding Method Diaper Incontinent # Voids 1 1 # Bowel Movements 1 GENERAL: The patient is lying in bed and does not seem in acute distress. CHEST: The heart rate is regular rate rhythm. No murmurs to auscultation. LUNG: Clear to auscultation bilaterally no wheezing noted throughout. Not labored breathing. ABDOMEN/GI: Bowel sounds present in all 4 quadrants. No tenderness to palpation throughout. NEUROLOGICAL: Limited since patient is stupor. Higher mental function: The patient is stupor condition. He will open his eyes with voice or shaking him on shoulder. Not following commands or verbalizing. Cranial nerves: The pupils are round, equal 2mmd and reactive to light. Initial primary gaze was looking to right but then was center later. No facial weakness. Rest is limited. Motor: The strength is hard to assess but would withdrawal extremities and hard to defect focal deficits. Cerebellum: Unable to assess. Sensation: Unable to assess light touch. Reflexes (right/left): 1+ throughout. Plantars are mute bilaterally. Results - Laboratory Findings CBC and BMP: 08/24/21 05:34 08/24/21 05:34 Abnormal Lab Findings: Abnormal Labs 08/22/21 08/22/21 08/23/21 15:48 15:48 05:50 WBC Lymphocytes # 0.5 L 0.6 L BUN 26 H Creatinine 1.29 H Est GFR (CKD-EPI)NonAf POC Glucose (mg/dL) Total Protein Procalcitonin 08/23/21 08/23/21 08/24/21 05:50 05:50 05:34 WBC 4.14 L Lymphocytes # 0.76 L BUN Creatinine Est GFR (CKD-EPI)NonAf POC Glucose (mg/dL) Total Protein 6.2 L Procalcitonin 0.11 H 08/24/21 08/24/21 05:34 19:47 WBC Lymphocytes # BUN Creatinine Est GFR (CKD-EPI)NonAf 56.4 L POC Glucose (mg/dL) 131 H Total Protein Procalcitonin Assessment and Plan Assessment: Encephalopathy of unknown etiology. It was suspected he has ?pneumonia (per Primary team). Possible as result of his advanced Dementia from parkinson. Rule out seizure Parkinson's disease REM sleep behavior disorder Dementia Plan: I ordered EEG. I'll not start the patient on antiepileptic drugs unless there is triple discharges or seizure on the EEG. Ordered TSH, vitamin B12, folate and ammonia level. Q4 hour neuro checks. Will defer the rest of management to primary team. Upon discharge, recommend patient to follow-up with his general neurologist (Dr. Correa) within 1-2 weeks. The plan is discussed with patient's son and his as well as primary team. Thank you for the consultation. Jeferson Gonzalez M.D. Neuro-Hospitalist Time with Patient: Greater than 30
[2021-08-25] MEDS: CHOLECALCIFEROL 25 MCG (1000 IU) TABLET PO SCH ×2 (11:19→17:45)
[2021-08-25] MEDS: DONEPEZIL 10 MG TAB PO SCH ×2 (11:19→17:46)
[2021-08-25] MEDS: TIMOLOL 0.5% OPHTH DROPS 5 ML BTL BOTH EYES SCH (11:19)
[2021-08-25] MEDS: MEMANTINE 10 MG TAB PO SCH ×4 (11:19→21:35)
[2021-08-25] MEDS: CARBIDOPA-LEVODOPA 25-100 MG 1 EACH TAB PO SCH ×3 (11:19→17:46)
[2021-08-25 11:36] LABS: Glucose,Whole Blood 125 mg/dL (70-110)
--- NOTE | 2021-08-25 15:07 | EEG ---
ELECTROENCEPHALOGRAM REPORT DATE OF SERVICE: 08/25/2021. CLINICAL HISTORY: This is an 81-year-old gentleman with history of Parkinson's, dementia, REM sleep behavior disorder who has altered mental status. The video EEG is obtained to evaluate for seizure epileptiform activity. RELEVANT MEDICATION: The patient is not on any antiepileptic drugs. EEG TYPE: A routine 21 channel EEG performed with video using the 10/20 electrode placement system. DESCRIPTION: Wakefulness and drowsiness are obtained. During awake state, the background consists of low to moderate voltage of 5 to 6 hertz activity. There is no physiological stage 2 sleep architecture. There is no focal slowing. Interictal and ictal is none. ACTIVATION PROCEDURE: Photic stimulation and hyperventilation is not performed. CLINICAL INTERPRETATION: This is an abnormal routine EEG. The background slowing is suggestive of mild to moderate encephalopathy. Otherwise, there is no focal slowing, epileptiform discharges or seizure on the EEG. Clinical correlation is recommended. THOMPSON / LEROY: [id number] / MTDD
--- NOTE | 2021-08-25 15:27 | CDI ---
Documentation Clarification Form Date: 08/25/2021 03:14:45 PM From: Vicki Buck CCS, CCDS Admit Date: 08/22/2021 05:39:00 PM Patient Name: Salazar Medel Visit Number: [id number] Discharge Date: ATTENTION: The Clinical Documentation Specialists (CDI) and [facility] Coding Staff appreciate your assistance in clarifying documentation. Please respond to the clarification below the line at the bottom and electronically sign. The CDI & [facility] Coding staff will review the response and follow-up if needed. Please note: Queries are made part of the Legal Health Record. If you have any questions, please contact the author of this message via ITS. Dr. Christopher Boyce. Sheet: Heart Failure is documented in the 08/22 ED Note per the CXR, in the 08/23 H/P per the CXR and in the subsequent Progress Note on 08/24. Additional information regarding the Type & Acuity of CHF is requested. History/Risk Factors per the 08/23 H/P: Prostate Cancer status post surgery with prostate removed, Dementia, Parkinson's Disease, Pneumonia, Skin Cancer: removed. Clinical Indicators: Presented to the ED on 08/22 with SOB and weakness, URI symptoms, congestion, cough, fever. Admit with Pneumonia 08/22 VS: T 98.9, P 88, R 22, BP 145/79, PO 98 RA, BMI: 20.5 08/22 LAB: Lymph 0.5; BUN 26, Creatinine 1.29, BNP 325. 08/22 CXR: Congestive heart failure with small pleural effusions. Atheromatous aorta. Acute pneumonia not excluded. 08/24 CXR: No active cardiopulmonary disease. Clearing of pulmonary congestion & interstitial edema. 08/25 CXR: Increased cardiac transverse diameter, no significant pulmonary consolidation, no sizable pleural effusion or pneumothorax. Aortic atherosclerotic calcifications. 08/23 ECHO: Normal left ventricular systolic function w/no obvious regional wall motion abnormalities, Left ventricular EF 55-60%. Trace to mild MR, Mild AR, Mild TR. Trace pulmonic regurgitation. Treatment 08/22: IV Rocephin 1,000 mg x1 08/23: IV Rocephin 50 mls @ 100 mls/hr q24H, IV Doxycycline 100 mls @ 100 mls/hr q12H, Heparin sq 5,000 units q12H 08/24: IV Lasix 20 mg x1, INH Duoneb 3 mg QID/prn x2, IV Zosyn 100 mls @ 25 mls/hr q8H, INH Pulmicort 1 mg BID kirstin In your professional opinion, can you please clarify the Type & Acuity of CHF if known? [ ] Acute Diastolic Heart Failure [ ] Chronic Diastolic Heart Failure [ ] Acute on Chronic Diastolic Heart Failure [ ] Other, please specify: [ ] Unable to determine (Template Last Revised: April 2020) no acute chf MTDD
[2021-08-25 16:25] LABS: Glucose,Whole Blood 119 mg/dL (70-110)
[2021-08-25] MEDS: allopurinoL 100 MG TAB PO SCH (17:43)
--- NOTE | 2021-08-25 18:24 | P.PN ---
Subjective This is a pleasant 81 minute with past medical history of : Dementia, Pneumonia, Prostate Disorder status post prostate surgical removal, Parkinson disease Presents because of cough and subjective fever and generalized weakness. Patient somewhat disappointed historian and information was obtained with the help of his son they'll at bedside. Family stated that patient has been complaining of from cough as well as his , so they took him to the clinic in [place] which referred him to the hospital for his weakness. As per son patient has been having this cough and for the last 3 days and it is associated in the beginning with sore throat. Also he had some runny nose but the son states that this is a chronic. Currently no sore throat, no chest pain or dyspnea at rest. Patient denies fever. No diarrhea or vomiting Her family stated that patient have difficulty getting up from chair or walking, he started using her walker the last few days Also patient looks confused. The family also does not look much concerned because this been happening up and down. Patient knows he is in the hospital but could not tell which hospital or sitting, he is disoriented to time and person. He thought his son they'll at bedside is his brother Johnny. Patient also has no insight into his illness Patient also has history of Parkinson disease for many years, he has mild resting tremor today. Patient also complaining of from difficulty passing urine but no dysuria. No smoking, alcohol or illicit tracts Patient is hemodynamically stable. He is afebrile. Labs including CBC showed only mild lymphopenia, BMP showing mildly elevated creatinine 1.29 compared to baseline of 1.1. Rest of BMP and liver enzymes are unremarkable. Troponin is negative less than 0.012. ProBNP is negative at 325. Urinalysis is negative. Coronavirus and influenza viruses are undetected EKG showing junctional rhythm While chest x-ray showing congestive heart failure with small pleural effusion as per report On admission patient received 1 dose of ceftriaxone. He was started on 08/24/2021 Patient today still confused, he has difficulty holding stop because of his worsening tremors in both upper and lower extremities as well as his head. It looks more stiff. This could be related to his worsening Parkinson before we going to consult neurology service. Repeat chest x-ray showed clearing of pulmonary congestion and interstitial i nfiltrates per radiologist. Echocardiogram showing preserved ejection fraction 55-60%, CT of the brain is negative for acute process. Chest x-ray showed clearing of pulmonary congestion with interstitial infiltrates improved radiologist. Poorcalcitonin is not significantly elevated and it is only at 0.11. No fever. No significant tachycardia or tachypnea. His medication. He was started on Solu-Medrol and antibiotics changed to Zosyn. Also patient will be transferred to Discussed with the son at bedside. 04/27/2021 I assessed the patient twice first occurred in the morning and later on together with the neurologist, and both occasions the Monday was at bedside. Patient today is more confused, he does not follow commands or answer questions, he has tremor and abnormal jerking movements of both of upper and lower extremities especially at rest but more patient tried to move or patient provoked. Patient withdrawal to painful stimuli. No abnormal posters. Patient paid attention and opens eyes when call his name. Neurologist on the case and recommended EEG which shows no seizure-like activity. There is [id number] encephalopathy. Repeat his x-ray showing no consolidation and was reviewed by myself. Patient remains on Zosyn and we will repeatcalcitonin also we will repeat other labs. Repeat CBC, BMP magnesium, liver enzymes and poorcalcitonin. B12, hemoglobin A1c, folic acid and TSH were unremarkable. Echocardiogram showed ejection fraction of 55-60%. Suspicion of infection is low however patient tripped on antibiotic. Possibility patient has last dementia and Parkinson disease, also with may be affected by medication. Therefore steroids was discontinued today. Patient on high-dose of donpezil , memantine and Sinemet. Objective - Vital Signs Vital signs: Vital Signs Temp 97.9 F 08/25/21 08:00 Pulse 72 08/25/21 08:00 Resp 18 08/25/21 08:00 BP 100/63 08/25/21 08:00 Pulse Ox 100 08/25/21 08:00 FiO2 Intake & Output 08/24/21 08/25/21 08/25/21 18:59 06:59 18:59 Other: Voiding Method Diaper Diaper Incontinent Incontinent # Voids 1 1 # Bowel Movements 1 - Exam -GENERAL: The patient is confused, appetite to verbal stimuli, does not follow commands, not in any acute distress. under developed and generalized weakness HEENT: Pupils are round and equally reacting to light. EOMI. No scleral icterus. No conjunctival pallor. Normocephalic, atraumatic. No pharyngeal erythema. No thyromegaly. CARDIOVASCULAR: S1 and S2 present. No murmurs, rubs, or gallops. PULMONARY: Chest is clear to auscultation, no wheezing or crackles. ABDOMEN: Soft, nontender, nondistended, normoactive bowel sounds. No palpable organomegaly. MUSCULOSKELETAL: No joint swelling or deformity. EXTREMITIES: No cyanosis, clubbing, or pedal edema. -NEUROLOGICAL: Gross neurological examination did not reveal any focal deficits. Patient is confused, he does not follows commands. Cranial nerves are grossly intact. Meningeal signs are absent He has some generalized weakness but he denies any numbness SKIN: No rashes. No petechiae - Labs CBC & Chem 7: 08/24/21 05:34 08/24/21 05:34 Labs: Abnormal Lab Results - Last 24 Hours (Table) 08/24/21 Range/Units 19:47 POC Glucose (mg/dL) 131 H (70-110) mg/dL Assessment and Plan Assessment: Altered mental status most likely metabolic and more toxic encephalopathy, the top of advanced dementia Worsening tremor most likely related to Parkinson disease Bilateral respiratory infiltrate suspicious for community acquired pneumonia. I mproved. Suspicion of pneumonia is low, not entirely excluded. Suspicion of procedure physical Generalized weakness and deconditioning Mild acute kidney injury and dehydration, improved Alzheimer dementia History of Parkinson disease History of prostate disease status post surgical removal of the prostate History of pneumonia Plan: This is a pleasant 81 old male who presents with pneumonia and metabolic encephalopathy Continuous with Zosyn Discontinue Solu-Medrol Neurology consult EEG reviewed, no need for antiseizure medication for now Continue with breathing treatment and inhaled steroids labs and medication were reviewed.. Continue same treatment. Continue with symptomatic treatment. Resume home medication. Monitor lytes and vitals. DVT and GI prophylaxis. Further recommendations depends on the clinical course of the patient DVT prophylaxis: Subcutaneous heparin GI Prophylaxis: Pepcid PT/OT: Pending Prognosis is guarded
[2021-08-25 19:57] LABS: Basophils # (A) 0.1 k/uL (0-0.2); Basophils % (A) 1 %; Eosinophils % (A) 0 %; HCT 46.2 % (39.0-53.0); HGB 15.1 gm/dL (13.0-17.5); Lymphocytes # (A) 0.5 k/uL (1.0-4.8); Lymphocytes % (A) 5 %; MCHC 32.8 g/dL (31.0-37.0); MCV 91.4 fL (80.0-100.0); Mean Platelet Volume 7.8; Monocytes # (A) 0.8 k/uL (0-1.0); Monocytes % (A) 9 %; Neutrophils # (A) 7.6 k/uL (1.3-7.7); Neutrophils % (A) 84 %; Platelet Count 213 k/uL (150-450); RBC 5.05 m/uL (4.30-5.90); RDW 12.6 % (11.5-15.5)
[2021-08-25 21:23] LABS: Glucose,Whole Blood 127 mg/dL (70-110)
[2021-08-25] MEDS: polyethylene glycoL 3350 17 GM POWD.PACK PO SCH (21:27)
[2021-08-25] MEDS: LATANOPROST 0.005% OPHTH DROPS 2.5 ML BTL BOTH EYES SCH (21:27)
[2021-08-25] MEDS: DEXTROSE 5%-0.9% NACL 1,000 ML IV SCH (21:48)
[2021-08-26] MEDS: PIPERACILLIN-TAZOBACTAM 3.375 GM in SODIUM CHLORIDE 0.9% 100 ML IVPB SCH ×3 (02:56→16:48)
[2021-08-26 05:53] LABS: Glucose,Whole Blood 112 mg/dL (70-110)
[2021-08-26] MEDS: DONEPEZIL 10 MG TAB PO SCH (09:02)
[2021-08-26] MEDS: CHOLECALCIFEROL 25 MCG (1000 IU) TABLET PO SCH (09:02)
[2021-08-26] MEDS: CARBIDOPA-LEVODOPA 25-100 MG 1 EACH TAB PO SCH (09:02)
[2021-08-26] MEDS: FAMOTIDINE 20 MG TAB PO SCH (09:02)
[2021-08-26] MEDS: MEMANTINE 10 MG TAB PO SCH ×2 (09:02→20:20)
[2021-08-26] MEDS: HEPARIN SODIUM,PORCINE/PF 5,000 UNIT/0.5 ML SYRINGE SQ SCH ×2 (09:07→20:21)
[2021-08-26] MEDS: TIMOLOL 0.5% OPHTH DROPS 5 ML BTL BOTH EYES SCH (09:07)
[2021-08-26] MEDS: BUDESONIDE 1 MG/2 ML NEBU INHALATION SCH ×2 (09:27→20:17)
[2021-08-26] MEDS: IPRATROPIUM-ALBUTEROL 3 ML NEB INHALATION SCH ×4 (09:27→20:18)
[2021-08-26 10:45] LABS: Basophils # (A) 0.1 k/uL (0-0.2); Basophils % (A) 1 %; Eosinophils # (A) 0.1 k/uL (0-0.7); Eosinophils % (A) 1 %; HCT 41.6 % (39.0-53.0); HGB 13.6 gm/dL (13.0-17.5); Lymphocytes # (A) 0.6 k/uL (1.0-4.8); Lymphocytes % (A) 11 %; MCHC 32.7 g/dL (31.0-37.0); MCV 91.7 fL (80.0-100.0); Mean Platelet Volume 8.3; Monocytes # (A) 0.6 k/uL (0-1.0); Monocytes % (A) 10 %; Neutrophils # (A) 4.4 k/uL (1.3-7.7); Neutrophils % (A) 76 %; Platelet Count 184 k/uL (150-450); RBC 4.54 m/uL (4.30-5.90); RDW 12.8 % (11.5-15.5); WBC 5.9 k/uL (3.8-10.6)
[2021-08-26 10:48] LABS: Albumin 3.3 g/dL (3.5-5.0); Bilirubin, Delta 0.2 mg/dL (0.0-0.2); Bilirubin,Unconjugated 0.2 mg/dL (0.0-1.1); Calcium 8.2 mg/dL (8.4-10.2); Magnesium 2.1 mg/dL (1.6-2.3); Potassium 4.1 mmol/L (3.5-5.1); Total Bilirubin 0.4 mg/dL (0.2-1.3)
--- NOTE | 2021-08-26 10:52 | P.PN ---
Subjective Progress Note Date: 08/26/21 The patient is seen at bedside and is accompanied by his son. The son does not know the details of patient history/management, he called the patient's who always able to speak with her. She could not give me exactly the details of patient's history since she felt it happened long time ago. She stated that the patient had REM sleep behavioral disorder and is seems was diagnosed many years ago unsure exactly when and patient had a sleep study done by Dr. Pompa and he felt was worse. Then that she noticed that the patient has been having the memory loss and she stated that it was going on for years and was mostly short- term memory and progressively getting worse. He was having severe REM be havioral at night with violent motor movement. She did not feel he had resting tremor but son felt he had tremor while feeding self. It seems that he was diagnosed with Parkinson's disease and was started on Sinemet she stated at least 3 months but to be more. She felt the patient has visual hallucination while on Sinemet. But he had the very severe visual hallucination while on steroids in the past and the son thinks it could've been a year ago. Patient was still able to have a conversation and walk and they felt he was doing well. He was not being followed up with the bailer tenders supervisor as an outpatient but rather was being followed up with the Dr. Correa (Neurologist) but is seems the patient was never started on melatonin or Clonazepam for his REM according to . She thinks he was not started on any medications. Until this past weekend and which is seems to the had upper respiratory tract infection and then the patient had cough generalized weakness and then he went to an urgent care and they're concerned about a stroke because the stated that he is having difficulty picking up his feet but the son stated that was generalized weakness. During this hospital visit is seems the patient was given steroids and worsened drastically with confusion and tremors. But today the son feels patient is doing much better compared to initial presentations but not back to baseline. Objective - Vital Signs Vital signs: Vital Signs Temp 98.0 F 08/26/21 08:56 Pulse 70 08/26/21 08:56 Resp 18 08/26/21 08:56 BP 106/67 08/26/21 08:56 Pulse Ox 91 L 08/26/21 08:56 FiO2 Intake & Output 08/25/21 08/26/21 08/26/21 18:59 06:59 18:59 Intake Total 240 540 Output Total 451 2 Balance -211 538 Intake: Oral 240 540 Output: Urine 450 Stool 1 2 Other: Voiding Method Diaper Diaper Incontinent Incontinent # Voids 1 # Bowel Movements 1 - Exam GENERAL: The patient is lying in bed and does not appear in acute distress. NEUROLOGICAL: Higher mental function: The patient is drowsy but is awakeable to voice. He was able to follow simple commands. , Cranial nerves: The pupils are round, equal and reactive to light . No facial weakness. Motor: The strength is hard to assess but was moving all extremities spontaneously. Has transient episode of tremors of his body. Normal tone. Some of the workup during this admission in our facility consisted of: Vitamin B12: 1290 TSH: 1.980 Ammonia <9 Urinalysis is negative for urinary tract infection. Soto virus PCR was not detected. Influenza A and B is not detected. CT of the head is reported as no acute intracranial hemorrhage or gross acute cortical infarct. Brain volume loss changes and suspected chronic microvascular ischemic changes with other chronic an incidental finding. I personally reviewed the CT of the head and I agree there is no acute or subacute ischemic and there is no truncal hemorrhage. Routine EEG is abnormal. The back of slowing suggestive of mild to moderate encephalopathy. Otherwise there is no focal slowing, epileptiform discharges or seizure on the EEG. - Labs CBC & Chem 7: 08/25/21 19:30 08/24/21 05:34 Labs: Abnormal Lab Results - Last 24 Hours (Table) 08/24/21 08/25/21 08/25/21 Range/Units 05:34 11:35 16:23 Lymphocytes # (1.0-4.8) k/uL POC Glucose (mg/dL) 125 H 119 H (70-110) mg/dL Plasma Lactic Acid Calvin (0.7-2.0) mmol/L Vitamin B12 1290.0 H (200.0-944.0) pg/mL Procalcitonin (0.02-0.09) ng/mL 08/25/21 08/25/21 08/25/21 Range/Units 19:30 19:30 19:30 Lymphocytes # 0.5 L (1.0-4.8) k/uL POC Glucose (mg/dL) (70-110) mg/dL Plasma Lactic Acid Calvin 2.4 H* (0.7-2.0) mmol/L Vitamin B12 (200.0-944.0) pg/mL Procalcitonin 0.31 H (0.02-0.09) ng/mL 08/25/21 08/26/21 Range/Units 21:21 05:49 Lymphocytes # (1.0-4.8) k/uL POC Glucose (mg/dL) 127 H 112 H (70-110) mg/dL Plasma Lactic Acid Calvin (0.7-2.0) mmol/L Vitamin B12 (200.0-944.0) pg/mL Procalcitonin (0.02-0.09) ng/mL Microbiology - Last 24 Hours (Table) 08/24/21 17:32 Blood Culture - Preliminary Blood No Growth after 24 hours Assessment and Plan Assessment: Encephalopathy likely due to medication effect (Steroids)--improving Suspect Lewy Body Dementia over Idiopathic Parkinson's (from history that patient initially had dementia then parkinson's symptoms and has visual hallucination to dopaminergic medications) REM sleep behavior disorder Likely Acute Viral Upper Respiratory infection Plan: I stopped the Sinemet since patient having visual hallucination with medication (Lewy body dementia patient are sensitive to dopaminergic medication). I started the patient on Melatonin 3mg qhs and Clonazepam 0.25mg qhs and that can be titrated down the line if needed for his REM behavioral disorder. Please avoid any steroids, narcotic oral opiates that affect the patient's mentation Ask for the family to attempt to give more accurate time frame of patient's symptoms. Q4 hour neuro checks. Will defer the rest of management to primary team. Upon discharge, recommend patient to follow-up with a neurologist within 1-2 weeks. The plan is discussed with patient's son and patient's as well as primary team in length. Jeferson Gonzalez M.D. Neuro-Hospitalist Time with Patient: Greater than 30
[2021-08-26 12:01] LABS: Glucose,Whole Blood 100 mg/dL (70-110)
[2021-08-26 16:31] LABS: Glucose,Whole Blood 118 mg/dL (70-110)
[2021-08-26] MEDS: ACETAMINOPHEN TAB 325 MG TAB PO PRN (16:48)
[2021-08-26] MEDS: allopurinoL 100 MG TAB PO SCH (16:48)
[2021-08-26] MEDS: DEXTROSE 5%-0.9% NACL 1,000 ML IV SCH (17:29)
[2021-08-26] MEDS ORDERED: IOPAMIDOL CONTRAST (ORAL USE) VIAL PO PRN (18:50)
--- NOTE | 2021-08-26 19:21 | P.PN ---
Subjective This is a pleasant 81 minute with past medical history of : Dementia, Pneumonia, Prostate Disorder status post prostate surgical removal, Parkinson disease Presents because of cough and subjective fever and generalized weakness. Patient somewhat disappointed historian and information was obtained with the help of his son they'll at bedside. Family stated that patient has been complaining of from cough as well as his , so they took him to the clinic in [place] which referred him to the hospital for his weakness. As per son patient has been having this cough and for the last 3 days and it is associated in the beginning with sore throat. Also he had some runny nose but the son states that this is a chronic. Currently no sore throat, no chest pain or dyspnea at rest. Patient denies fever. No diarrhea or vomiting Her family stated that patient have difficulty getting up from chair or walking, he started using her walker the last few days Also patient looks confused. The family also does not look much concerned because this been happening up and down. Patient knows he is in the hospital but could not tell which hospital or sitting, he is disoriented to time and person. He thought his son they'll at bedside is his brother Johnny. Patient also has no insight into his illness Patient also has history of Parkinson disease for many years, he has mild resting tremor today. Patient also complaining of from difficulty passing urine but no dysuria. No smoking, alcohol or illicit tracts Patient is hemodynamically stable. He is afebrile. Labs including CBC showed only mild lymphopenia, BMP showing mildly elevated creatinine 1.29 compared to baseline of 1.1. Rest of BMP and liver enzymes are unremarkable. Troponin is negative less than 0.012. ProBNP is negative at 325. Urinalysis is negative. Coronavirus and influenza viruses are undetected EKG showing junctional rhythm While chest x-ray showing congestive heart failure with small pleural effusion as per report On admission patient received 1 dose of ceftriaxone. He was started on 08/24/2021 Patient today still confused, he has difficulty holding stop because of his worsening tremors in both upper and lower extremities as well as his head. It looks more stiff. This could be related to his worsening Parkinson before we going to consult neurology service. Repeat chest x-ray showed clearing of pulmonary congestion and interstitial i nfiltrates per radiologist. Echocardiogram showing preserved ejection fraction 55-60%, CT of the brain is negative for acute process. Chest x-ray showed clearing of pulmonary congestion with interstitial infiltrates improved radiologist. Poorcalcitonin is not significantly elevated and it is only at 0.11. No fever. No significant tachycardia or tachypnea. His medication. He was started on Solu-Medrol and antibiotics changed to Zosyn. Also patient will be transferred to Discussed with the son at bedside. 08/25/2021 I assessed the patient twice first occurred in the morning and later on together with the neurologist, and both occasions the Monday was at bedside. Patient today is more confused, he does not follow commands or answer questions, he has tremor and abnormal jerking movements of both of upper and lower extremities especially at rest but more patient tried to move or patient provoked. Patient withdrawal to painful stimuli. No abnormal posters. Patient paid attention and opens eyes when call his name. Neurologist on the case and recommended EEG which shows no seizure-like activity. There is [id number] encephalopathy. Repeat his x-ray showing no consolidation and was reviewed by myself. Patient remains on Zosyn and we will repeatcalcitonin also we will repeat other labs. Repeat CBC, BMP magnesium, liver enzymes and poorcalcitonin. B12, hemoglobin A1c, folic acid and TSH were unremarkable. Echocardiogram showed ejection fraction of 55-60%. Suspicion of infection is low however patient tripped on antibiotic. Possibility patient has last dementia and Parkinson disease, also with may be affected by medication. Therefore steroids was discontinued today. Patient on high-dose of donpezil , memantine and Sinemet. 08/26/2021 Patient is more calm today, less confused, he is a sleepy and wakes up to verbal stimuli, he answers questions and follow commands more appropriately compared to yesterday. He is forgetful, he could not recognize his son at bedside No evidence of cellulitis, he has some mild abdominal tenderness especially on the right side short of its significance however we going to recommend computed tomography scan of the abdomen with oral contrast. Also his creatinine went up to 1.6 from 1.2. We lowered his IV fluids D5 normal saline down to 50 mL per hour. Also will check bladder scan was more than 300 with evidence of ureteral retention. We start Flomax and consider straight cath versus Menard catheter Discussed with family to encourage reorientation to the patient reacted He is eating well and tolerates diet, he finished 50-75% of his diet today. Neurology input is appreciated, Sinemet was discontinued. Steroids was discontinued also from yesterday which might contribute to patient clinical picture. Patient was started on melatonin and small dose of Klonopin and we will keep monitoring Objective - Vital Signs Vital signs: Vital Signs Temp 98.0 F 08/26/21 08:56 Pulse 70 08/26/21 08:56 Resp 18 08/26/21 08:56 BP 106/67 08/26/21 08:56 Pulse Ox 91 L 08/26/21 08:56 FiO2 Intake & Output 08/25/21 08/26/21 08/26/21 18:59 06:59 18:59 Intake Total 240 540 Output Total 451 2 Balance -211 538 Intake: Oral 240 540 Output: Urine 450 Stool 1 2 Other: Voiding Method Diaper Diaper Incontinent Incontinent # Voids 1 # Bowel Movements 1 - Exam -GENERAL: The patient is confused, sleepy but awakes to verbal stimuli, he does follow commands today, not in any acute distress. under developed and generalized weakness HEENT: Pupils are round and equally reacting to light. EOMI. No scleral icterus. No conjunctival pallor. Normocephalic, atraumatic. No pharyngeal erythema. No thyromegaly. CARDIOVASCULAR: S1 and S2 present. No murmurs, rubs, or gallops. PULMONARY: Chest is clear to auscultation, no wheezing or crackles. -ABDOMEN: Soft, mild right abdominal tenderness, no rebound tenderness, no guarding, nondistended, normoactive bowel sounds. No palpable organomegaly. MUSCULOSKELETAL: No joint swelling or deformity. EXTREMITIES: No cyanosis, clubbing, or pedal edema. -NEUROLOGICAL: Gross neurological examination did not reveal any focal deficits. Patient is confused, he does not follows commands. Cranial nerves are grossly intact. Meningeal signs are absent He has some generalized weakness but he de nies any numbness SKIN: No rashes. No petechiae - Labs CBC & Chem 7: 08/26/21 09:38 08/26/21 09:38 Labs: Abnormal Lab Results - Last 24 Hours (Table) 08/24/21 08/25/21 08/25/21 Range/Units 05:34 11:35 16:23 Lymphocytes # (1.0-4.8) k/uL Chloride (98-107) mmol/L BUN (9-20) mg/dL Creatinine (0.66-1.25) mg/dL Glucose (74-99) mg/dL POC Glucose (mg/dL) 125 H 119 H (70-110) mg/dL Plasma Lactic Acid Calvin (0.7-2.0) mmol/L Calcium (8.4-10.2) mg/dL Total Protein (6.3-8.2) g/dL Albumin (3.5-5.0) g/dL Vitamin B12 1290.0 H (200.0-944.0) pg/mL Procalcitonin (0.02-0.09) ng/mL 08/25/21 08/25/21 08/25/21 Range/Units 19:30 19:30 19:30 Lymphocytes # 0.5 L (1.0-4.8) k/uL Chloride (98-107) mmol/L BUN (9-20) mg/dL Creatinine (0.66-1.25) mg/dL Glucose (74-99) mg/dL POC Glucose (mg/dL) (70-110) mg/dL Plasma Lactic Acid Calvin 2.4 H* (0.7-2.0) mmol/L Calcium (8.4-10.2) mg/dL Total Protein (6.3-8.2) g/dL Albumin (3.5-5.0) g/dL Vitamin B12 (200.0-944.0) pg/mL Procalcitonin 0.31 H (0.02-0.09) ng/mL 08/25/21 08/26/21 08/26/21 Range/Units 21:21 05:49 09:38 Lymphocytes # 0.6 L (1.0-4.8) k/uL Chloride (98-107) mmol/L BUN (9-20) mg/dL Creatinine (0.66-1.25) mg/dL Glucose (74-99) mg/dL POC Glucose (mg/dL) 127 H 112 H (70-110) mg/dL Plasma Lactic Acid Calvin (0.7-2.0) mmol/L Calcium (8.4-10.2) mg/dL Total Protein (6.3-8.2) g/dL Albumin (3.5-5.0) g/dL Vitamin B12 (200.0-944.0) pg/mL Procalcitonin (0.02-0.09) ng/mL 08/26/21 Range/Units 09:38 Lymphocytes # (1.0-4.8) k/uL Chloride 108 H (98-107) mmol/L BUN 45 H (9-20) mg/dL Creatinine 1.64 H (0.66-1.25) mg/dL Glucose 122 H (74-99) mg/dL POC Glucose (mg/dL) (70-110) mg/dL Plasma Lactic Acid Calvin (0.7-2.0) mmol/L Calcium 8.2 L (8.4-10.2) mg/dL Total Protein 6.0 L (6.3-8.2) g/dL Albumin 3.3 L (3.5-5.0) g/dL Vitamin B12 (200.0-944.0) pg/mL Procalcitonin (0.02-0.09) ng/mL Microbiology - Last 24 Hours (Table) 08/24/21 17:32 Blood Culture - Preliminary Blood No Growth after 24 hours Assessment and Plan Assessment: Altered mental status most likely metabolic and more toxic encephalopathy, the top of advanced dementia. Patient condition worsened with steroids as well as possible sentiment effect Worsening tremor most likely related to Parkinson disease Possible lewy body dementia Bilateral respiratory infiltrate suspicious for community acquired pneumonia. Improved. Suspicion of pneumonia is low, not entirely excluded. Urinary retention Mild abdominal pain, rule out intra-abdominal pathology Generalized weakness and deconditioning Mild acute kidney injury and dehydration, improved Alzheimer dementia History of Parkinson disease History of prostate disease status post surgical removal of the prostate History of pneumonia Plan: This is a pleasant 81 old male who presents with pneumonia and metabolic encephalopathy Continuous with Zosyn Patient currently kept off his steroids. Also sentiment was discontinued by neurologist Patient is started on melatonin and clonidine Neurology consult Menard catheter placement and Flomax CT of the abdomen and pelvis with oral contrast, no IV contrast labs and medication were reviewed.. Continue same treatment. Continue with symptomatic treatment. Resume home medication. Monitor lytes and vitals. DVT and GI prophylaxis. Further recommendations depends on the clinical course of the patient DVT prophylaxis: Subcutaneous heparin GI Prophylaxis: Pepcid PT/OT: Recommended subacute rehab, social media designer consulted Prognosis is guarded
[2021-08-26] MEDS: TAMSULOSIN 0.4 MG CAP.ER.24H PO SCH (20:19)
[2021-08-26] MEDS: MELATONIN 3 MG TABLET PO SCH (20:19)
[2021-08-26] MEDS: clonazePAM 0.5 MG TAB PO SCH (20:19)
[2021-08-26] MEDS: polyethylene glycoL 3350 17 GM POWD.PACK PO SCH (20:21)
[2021-08-26] MEDS: LATANOPROST 0.005% OPHTH DROPS 2.5 ML BTL BOTH EYES SCH (20:21)
[2021-08-26 20:49] LABS: Glucose,Whole Blood 112 mg/dL (70-110)
--- NOTE | 2021-08-26 21:59 | CT ---
EXAMINATION TYPE: CT abdomen pelvis wo con CT DLP: 650.5 mGycm, Automated exposure control for dose reduction was used. DATE OF EXAM: 08/26/2021 9:44 PM COMPARISON: None. CLINICAL INDICATION:Male, 81 years old with history of per physician order, abd pain; abdominal pain TECHNIQUE: Standard CT of the abdomen and pelvis without IV or oral contrast. Lack of IV or oral co ntrast limits evaluation of solid and hollow organ viscera. Coronal and sagittal reformats were perfo rmed. FINDINGS: LOWER CHEST: Left opacities seen in the bilateral lung bases, right greater than left. No confluent c onsolidation or pleural effusion. Mild pectus excavatum. ABDOMEN LIVER: Unremarkable GALLBLADDER AND BILE DUCTS: Unremarkable. PANCREAS: Unremarkable. SPLEEN: Unremarkable. ADRENAL GLANDS: Unremarkable. KIDNEYS AND URETERS: No evidence of hydronephrosis or renal calculus. The ureters are unremarkable. B ilateral renal cysts measuring up to 0.0 cm on the left. PELVIS: BLADDER: Nondistended with Menard catheter in place. REPRODUCTIVE: Prostate is surgically absent. ABDOMEN & PELVIS STOMACH AND BOWEL: Scattered diverticula are noted throughout the colon. No evidence of bowel obstruc tion. Large stool burden within the rectum measuring up to 7.4 cm in transverse dimension. PERITONEUM: No evidence of pneumoperitoneum or free fluid. VASCULATURE: Mild atherosclerotic calcifications are present throughout the abdominal aorta and its b ranches. Fusiform infrarenal aortic aneurysm measuring up to 3.0 cm. MUSCULOSKELETAL: Mild disc degeneration changes are present throughout the thoracolumbar spine.. LYMPH NODES: No gross evidence for lymphadenopathy. SOFT TISSUE/ABDOMINAL WALL: Left fat filled inguinal hernia. IMPRESSION: 1. Bibasilar posterior lower lobe ground glass opacities concerning for aspiration/pneumonia. 2. Infrarenal fusiform aortic aneurysm measuring up to 3.0 cm. 3. Large stool burden within the rectum. 4. Colonic diverticulosis. 5. Surgically absent prostate without evidence for suspicious osseous lesion or lymphadenopathy.
[2021-08-27] MEDS: PIPERACILLIN-TAZOBACTAM 3.375 GM in SODIUM CHLORIDE 0.9% 100 ML IVPB SCH ×3 (02:06→17:46)
[2021-08-27] MEDS: DEXTROSE 5%-0.9% NACL 1,000 ML IV SCH ×2 (02:06→21:28)
[2021-08-27 06:09] LABS: Glucose,Whole Blood 102 mg/dL (70-110)
--- NOTE | 2021-08-27 07:23 | XR ---
EXAMINATION TYPE: XR chest 1V DATE OF EXAM: 08/27/2021 HISTORY: Shortness of breath. COMPARISON: 08/25/2021 TECHNIQUE: Single view of the chest is submitted. FINDINGS: Demonstrated are scattered senescent parenchymal change. There is no evidence for focal infiltrate. The heart is stable. Hilar and mediastinal structures are within normal limits. Degenerative changes are seen of the dorsal spine. IMPRESSION: 1. Chronic changes without evidence for acute pulmonary disease.
[2021-08-27] MEDS: BUDESONIDE 1 MG/2 ML NEBU INHALATION SCH ×2 (07:56→19:45)
[2021-08-27] MEDS: IPRATROPIUM-ALBUTEROL 3 ML NEB INHALATION SCH ×4 (07:56→19:46)
[2021-08-27] MEDS: CHOLECALCIFEROL 25 MCG (1000 IU) TABLET PO SCH (09:21)
[2021-08-27] MEDS: MEMANTINE 10 MG TAB PO SCH ×2 (09:21→21:27)
[2021-08-27] MEDS: FAMOTIDINE 20 MG TAB PO SCH (09:21)
[2021-08-27] MEDS: HEPARIN SODIUM,PORCINE/PF 5,000 UNIT/0.5 ML SYRINGE SQ SCH ×2 (09:21→21:27)
[2021-08-27] MEDS: DONEPEZIL 10 MG TAB PO SCH (09:21)
[2021-08-27] MEDS: TIMOLOL 0.5% OPHTH DROPS 5 ML BTL BOTH EYES SCH (09:22)
[2021-08-27 10:46] LABS: Albumin 3.5 g/dL (3.5-5.0); Bilirubin, Delta 0.2 mg/dL (0.0-0.2); Bilirubin,Unconjugated 0.2 mg/dL (0.0-1.1); Calcium 8.5 mg/dL (8.4-10.2); Magnesium 2.1 mg/dL (1.6-2.3); Potassium 4.1 mmol/L (3.5-5.1); Total Bilirubin 0.4 mg/dL (0.2-1.3); Total Protein 6.4 g/dL (6.3-8.2)
--- NOTE | 2021-08-27 12:59 | P.PN ---
Subjective Progress Note Date: 08/27/21 The patient is seen at bedside is accompanied by his 2 sons. His 2 sons feel like the patient has been showing improvement from initial presentation but noticed a drastic improvement yesterday in afternoon compared to today. One of his son stated that the patient was talking more appropriately and seemed more intact and somewhat close to baseline but felt worse today compared to yesterday and had visual hallucination. It seems that the patient had a sleep study and 12/20/2017 and was read by Dr. Mondragon and it's reported as mild obstructive sleep apnea, positional. REM behavioral disorder this occurred on 2 separate occasions throughout the night. Abnormal sleep architecture with overrepresentation of stage I sleep, diminished delta waves and stage II. Hypersomnia and excessive sleepiness. In the recommendation, was reported that this condition is typically associate with a central neurological disease in regards to the REM behavioral disorder. Including Parkinson disease, Lewy body dementia and multi-system atrophy. And that the patient does not have any these symptoms right now. And however this is something to watch for in the future. It seems the patient is becoming more forgetful and currently is under investigation of dementia. He recommended clonazepam and melatonin. I reviewed Dr. Correa notes that family provided. It seems patient has been following-up with him since 2018. He has had two MRI Brain which showed white matter changes, had EEG in past and reported as no seizure. For Dementia has on Aricept and Memantine. It does mention that patient was referred to him by Dr. Moreira for REM behavior. Objective - Vital Signs Vital signs: Vital Signs Temp 97.9 F 08/27/21 09:11 Pulse 80 08/27/21 12:08 Resp 18 08/27/21 10:03 BP 107/64 08/27/21 09:11 Pulse Ox 95 08/27/21 09:11 FiO2 21 08/27/21 08:01 Intake & Output 08/26/21 08/27/21 08/27/21 18:59 06:59 18:59 Intake Total 340 Output Total 774 1202 475 Balance -435 1208 -345 Intake: Oral 340 Output: Urine 775 1200 475 Uretheral (Menard) 475 Stool 2 Other: Voiding Method Diaper Diaper Diaper Incontinent Incontinent Incontinent # Bowel Movements 1 - Exam GENERAL: The patient is lying in bed and does not appear in acute distress. NEUROLOGICAL: Higher mental function: The patient is drowsy but is awakeable to voice. He is oriented to self. With options he stated he is in the hospital. He is able to name watch and pen on repeated tries. He is following few simple commands. Language is limited. No neglect., Cranial nerves: The pupils are round, equal and reactive to light . No facial weakness. Motor: The strength is hard to assess but was moving all extremities spontaneously above gravity. Has transient episode of tremors of his body. Normal tone. Some of the workup during this admission in our facility consisted of: Vitamin B12: 1290 TSH: 1.980 Ammonia <9 Urinalysis is negative for urinary tract infection. Soto virus PCR was not detected. Influenza A and B is not detected. CT of the head is reported as no acute intracranial hemorrhage or gross acute cortical infarct. Brain volume loss changes and suspected chronic microvascular ischemic changes with other chronic an incidental finding. I personally reviewed the CT of the head and I agree there is no acute or subacute ischemic and there is no truncal hemorrhage. Routine EEG is abnormal. The back of slowing suggestive of mild to moderate encephalopathy. Otherwise there is no focal slowing, epileptiform discharges or seizure on the EEG. - Labs CBC & Chem 7: 08/26/21 09:38 08/27/21 09:06 Labs: Abnormal Lab Results - Last 24 Hours (Table) 08/26/21 08/26/21 08/27/21 Range/Units 16:29 20:48 09:06 BUN 38 H (9-20) mg/dL Creatinine 1.48 H (0.66-1.25) mg/dL Glucose 156 H (74-99) mg/dL POC Glucose (mg/dL) 118 H 112 H (70-110) mg/dL Microbiology - Last 24 Hours (Table) 08/24/21 17:32 Blood Culture - Preliminary Blood No Growth after 48 hours Assessment and Plan Assessment: Encephalopathy likely due to medication effect (Steroids) and possible pneumonia--slight improving Suspect Lewy Body Dementia over Idiopathic Parkinson's (from history that patient initially had dementia then parkinson's symptoms and has visual hallucination) REM sleep behavior disorder Likely Acute Viral Upper Respiratory infection Plan: I stopped the Sinemet on 08/26/2021 since stated when he was on it he had worsening visual hallucination. I started the patient on Melatonin 3mg qhs and Clonazepam 0.25mg qhs on 08/26/21. Regarding Clonazepam, will titrate up, if needed for his REM behavioral disorder but it can cause drowsiness during the day and tolerance especially over the day. Please avoid any steroids, narcotic oral opiates that affect the patient's mentation Ordered repeat MRI Brain w/o if possible to assess if any new changes. Q4 hour neuro checks. Will defer the rest of management to primary team. Upon discharge, recommend patient to follow-up with a neurologist within 1-2 weeks. The plan is discussed with patient's two son's who are at bedside and his primary attending. Jeferson Gonzalez M.D. Neuro-Hospitalist Time with Patient: Less than 30
--- NOTE | 2021-08-27 15:19 | MR ---
MR brain without contrast HISTORY: Altered mental status Multiplanar multisequence imaging obtained through the brain Correlation to CT brain 08/23/2021 There is no restricted diffusion. Cortical atrophy and white matter demyelination changes are again n oted as on CT, there is no hemorrhage or hydrocephalus. Sinus disease is present in the maxillary sin us, sphenoid sinus, ethmoid air cells. Clear, pituitary, cervical medullary junction, cerebellopontin e angles are unremarkable. Some fluid signal present within the mastoid air cells. IMPRESSION: No acute abnormality. Sinus disease. Age-related changes of atrophy and chronic small ves eris ischemia.
[2021-08-27] MEDS: allopurinoL 100 MG TAB PO SCH (17:46)
[2021-08-27] MEDS: TAMSULOSIN 0.4 MG CAP.ER.24H PO SCH (17:46)
--- NOTE | 2021-08-27 19:11 | P.PN ---
Subjective This is a pleasant 81 minute with past medical history of : Dementia, Pneumonia, Prostate Disorder status post prostate surgical removal, Parkinson disease Presents because of cough and subjective fever and generalized weakness. Patient somewhat disappointed historian and information was obtained with the help of his son they'll at bedside. Family stated that patient has been complaining of from cough as well as his , so they took him to the clinic in [place] which referred him to the hospital for his weakness. As per son patient has been having this cough and for the last 3 days and it is associated in the beginning with sore throat. Also he had some runny nose but the son states that this is a chronic. Currently no sore throat, no chest pain or dyspnea at rest. Patient denies fever. No diarrhea or vomiting Her family stated that patient have difficulty getting up from chair or walking, he started using her walker the last few days Also patient looks confused. The family also does not look much concerned because this been happening up and down. Patient knows he is in the hospital but could not tell which hospital or sitting, he is disoriented to time and person. He thought his son they'll at bedside is his brother Johnny. Patient also has no insight into his illness Patient also has history of Parkinson disease for many years, he has mild resting tremor today. Patient also complaining of from difficulty passing urine but no dysuria. No smoking, alcohol or illicit tracts Patient is hemodynamically stable. He is afebrile. Labs including CBC showed only mild lymphopenia, BMP showing mildly elevated creatinine 1.29 compared to baseline of 1.1. Rest of BMP and liver enzymes are unremarkable. Troponin is negative less than 0.012. ProBNP is negative at 325. Urinalysis is negative. Coronavirus and influenza viruses are undetected EKG showing junctional rhythm While chest x-ray showing congestive heart failure with small pleural effusion as per report On admission patient received 1 dose of ceftriaxone. He was started on 08/24/2021 Patient today still confused, he has difficulty holding stop because of his worsening tremors in both upper and lower extremities as well as his head. It looks more stiff. This could be related to his worsening Parkinson before we going to consult neurology service. Repeat chest x-ray showed clearing of pulmonary congestion and interstitial i nfiltrates per radiologist. Echocardiogram showing preserved ejection fraction 55-60%, CT of the brain is negative for acute process. Chest x-ray showed clearing of pulmonary congestion with interstitial infiltrates improved radiologist. Poorcalcitonin is not significantly elevated and it is only at 0.11. No fever. No significant tachycardia or tachypnea. His medication. He was started on Solu-Medrol and antibiotics changed to Zosyn. Also patient will be transferred to Discussed with the son at bedside. 08/25/2021 I assessed the patient twice first occurred in the morning and later on together with the neurologist, and both occasions the Monday was at bedside. Patient today is more confused, he does not follow commands or answer questions, he has tremor and abnormal jerking movements of both of upper and lower extremities especially at rest but more patient tried to move or patient provoked. Patient withdrawal to painful stimuli. No abnormal posters. Patient paid attention and opens eyes when call his name. Neurologist on the case and recommended EEG which shows no seizure-like activity. There is [id number] encephalopathy. Repeat his x-ray showing no consolidation and was reviewed by myself. Patient remains on Zosyn and we will repeatcalcitonin also we will repeat other labs. Repeat CBC, BMP magnesium, liver enzymes and poorcalcitonin. B12, hemoglobin A1c, folic acid and TSH were unremarkable. Echocardiogram showed ejection fraction of 55-60%. Suspicion of infection is low however patient tripped on antibiotic. Possibility patient has last dementia and Parkinson disease, also with may be affected by medication. Therefore steroids was discontinued today. Patient on high-dose of donpezil , memantine and Sinemet. 08/26/2021 Patient is more calm today, less confused, he is a sleepy and wakes up to verbal stimuli, he answers questions and follow commands more appropriately compared to yesterday. He is forgetful, he could not recognize his son at bedside No evidence of cellulitis, he has some mild abdominal tenderness especially on the right side short of its significance however we going to recommend computed tomography scan of the abdomen with oral contrast. Also his creatinine went up to 1.6 from 1.2. We lowered his IV fluids D5 normal saline down to 50 mL per hour. Also will check bladder scan was more than 300 with evidence of ureteral retention. We start Flomax and consider straight cath versus Menard catheter Discussed with family to encourage reorientation to the patient reacted He is eating well and tolerates diet, he finished 50-75% of his diet today. Neurology input is appreciated, Sinemet was discontinued. Steroids was discontinued also from yesterday which might contribute to patient clinical picture. Patient was started on melatonin and small dose of Klonopin and we will keep monitoring 08/27/2021 Both brothers were at bedside today together with the neurologist while examining the patient. As per brothers yesterday evening patient was more awake and he had good conversation with brothers, and he couldn't recognize their names correctly. However this morning is again more confused which is goes with delirium secondary to toxic metabolic encephalopathy. MRI of the brain is negative for acute process or infarct or ischemia. But showing age-related atrophy and chronic small vessel ischemia. Creatinine actually is trending down today 1.6 down to 1.4. Chest x-ray showing no acute changes but poorcalcitonin is trending down 0.15 showing improvement in his infection which is most likely pneumonia seen on CAT scan of the abdomen yesterday. Patient remains on Zosyn. Patient has evidence of urine retention which is resolved after a pleasant Menard catheter. This may be contributing to altered mental status. We'll start Flomax as well. Once this might benefit from a urologist as an outpatient. Contact information placed in the discharge instructions Objective - Vital Signs Vital signs: Vital Signs Temp 97.9 F 08/27/21 09:11 Pulse 75 08/27/21 15:10 Resp 18 08/27/21 15:03 BP 125/70 08/27/21 12:00 Pulse Ox 96 08/27/21 12:00 FiO2 21 08/27/21 08:01 Intake & Output 08/26/21 08/27/21 08/27/21 18:59 06:59 18:59 Intake Total 340 100 Output Total 775 1202 925 Balance -435 -3041 -423 Intake: Intake, IV Titration 100 Amount Piperacillin-Tazobactam 3 100 .375 gm In Sodium Chloride 0.9% 100 ml @ 25 mls/hr IVPB Q8H [facility] Rx#: [id number] Oral 340 Output: Urine 775 1200 925 Uretheral (Menard) 475 Stool 2 Other: Voiding Method Diaper Diaper Diaper Incontinent Incontinent Incontinent # Bowel Movements 1 - Exam -GENERAL: The patient is confused, sleepy but awakes to verbal stimuli, he does follow commands today, not in any acute distress. under developed and generalized weakness HEENT: Pupils are round and equally reacting to light. EOMI. No scleral icterus. No conjunctival pallor. Normocephalic, atraumatic. No pharyngeal erythema. No thyromegaly. CARDIOVASCULAR: S1 and S2 present. No murmurs, rubs, or gallops. PULMONARY: Chest is clear to auscultation, no wheezing or crackles. -ABDOMEN: Soft, mild right abdominal tenderness, no rebound tenderness, no guarding, nondistended, normoactive bowel sounds. No palpable organomegaly. MUSCULOSKELETAL: No joint swelling or deformity. EXTREMITIES: No cyanosis, clubbing, or pedal edema. -NEUROLOGICAL: Gross neurological examination did not reveal any focal deficits. Patient is confused, he does not follows commands. Cranial nerves are grossly intact. Meningeal signs are absent He has some generalized weakness but he denies any numbness SKIN: No rashes. No petechiae - Labs CBC & Chem 7: 08/26/21 09:38 08/27/21 09:06 Labs: Abnormal Lab Results - Last 24 Hours (Table) 08/26/21 08/27/21 08/27/21 Range/Units 20:48 09:06 09:06 BUN 38 H (9-20) mg/dL Creatinine 1.48 H (0.66-1.25) mg/dL Glucose 156 H (74-99) mg/dL POC Glucose (mg/dL) 112 H (70-110) mg/dL Procalcitonin 0.15 H (0.02-0.09) ng/mL Microbiology - Last 24 Hours (Table) 08/24/21 17:32 Blood Culture - Preliminary Blood No Growth after 48 hours Assessment and Plan Assessment: Altered mental status most likely metabolic and more toxic encephalopathy,on the top of advanced dementia. 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 Improved. Urinary retention, status post Menard catheter Mild abdominal pain, rule out intra-abdominal pathology Generalized weakness and deconditioning Mild acute kidney injury and dehydration, improved Alzheimer dementia History of Parkinson disease History of prostate disease status post surgical removal of the prostate History of pneumonia Plan: This is a pleasant 81 old male who presents with pneumonia and metabolic encephalopathy Continuous with Zosyn Patient currently kept off his steroids. Also sentiment was discontinued by neurologist Patient is started on melatonin and clonidine Neurology consult Menard catheter placement and Flomax CT of the abdomen and pelvis with oral contrast, no IV contrast Cigarette was discontinued and patient placed on melatonin and Klonopin per primary team labs and medication were reviewed.. Continue same treatment. Continue with symptomatic treatment. Resume home medication. Monitor lytes and vitals. DVT and GI prophylaxis. Further recommendations depends on the clinical course of the patient DVT prophylaxis: Subcutaneous heparin GI Prophylaxis: Pepcid PT/OT: Recommended subacute rehab, social work therapist consulted Prognosis is guarded
[2021-08-27] MEDS: clonazePAM 0.5 MG TAB PO SCH (21:26)
[2021-08-27] MEDS: LATANOPROST 0.005% OPHTH DROPS 2.5 ML BTL BOTH EYES SCH (21:27)
[2021-08-27] MEDS: polyethylene glycoL 3350 17 GM POWD.PACK PO SCH (21:27)
[2021-08-27] MEDS: MELATONIN 3 MG TABLET PO SCH (21:27)
[2021-08-28] MEDS: PIPERACILLIN-TAZOBACTAM 3.375 GM in SODIUM CHLORIDE 0.9% 100 ML IVPB SCH ×3 (03:56→17:46)
[2021-08-28] MEDS: BUDESONIDE 1 MG/2 ML NEBU INHALATION SCH ×2 (08:05→20:11)
[2021-08-28] MEDS: IPRATROPIUM-ALBUTEROL 3 ML NEB INHALATION SCH ×4 (08:05→20:11)
[2021-08-28] MEDS: DONEPEZIL 10 MG TAB PO SCH (09:18)
[2021-08-28] MEDS: HEPARIN SODIUM,PORCINE/PF 5,000 UNIT/0.5 ML SYRINGE SQ SCH ×2 (09:18→21:10)
[2021-08-28] MEDS: MEMANTINE 10 MG TAB PO SCH ×2 (09:18→21:10)
[2021-08-28] MEDS: FAMOTIDINE 20 MG TAB PO SCH (09:18)
[2021-08-28] MEDS: CHOLECALCIFEROL 25 MCG (1000 IU) TABLET PO SCH (09:18)
[2021-08-28] MEDS: TIMOLOL 0.5% OPHTH DROPS 5 ML BTL BOTH EYES SCH (09:19)
--- NOTE | 2021-08-28 09:41 | P.PN ---
Subjective Progress Note Date: 08/28/21 The patient is seen at bedside and per so was talking better today but today a bit more sleepy. I spoke with primary team and they stated patient has urinary retention s/p martini cather. Objective - Vital Signs Vital signs: Vital Signs Temp 97.8 F 08/28/21 09:10 Pulse 88 08/28/21 09:10 Resp 18 08/28/21 09:10 BP 98/60 08/28/21 09:10 Pulse Ox 97 08/28/21 09:10 FiO2 21 08/27/21 08:01 Intake & Output 08/27/21 08/28/21 08/28/21 18:59 06:59 18:59 Intake Total 100 120 Output Total 1175 650 Balance -1075 -650 120 Intake: Intake, IV Titration 100 Amount Piperacillin-Tazobactam 3 100 .375 gm In Sodium Chloride 0.9% 100 ml @ 25 mls/hr IVPB Q8H [facility] Rx#: [id number] Oral 120 Output: Urine 1175 650 Uretheral (Martini) 725 Other: Voiding Method Diaper Indwelling Catheter Incontinent - Exam GENERAL: The patient is lying in bed and does not appear in acute distress. NEUROLOGICAL: Limited since was sleepy. No facial weakness. Has transient episode of tremors of his body. Some of the workup during this admission in our facility consisted of: Vitamin B12: 1290 TSH: 1.980 Ammonia <9 Urinalysis is negative for urinary tract infection. Soto virus PCR was not detected. Influenza A and B is not detected. CT of the head is reported as no acute intracranial hemorrhage or gross acute cortical infarct. Brain volume loss changes and suspected chronic microvascular ischemic changes with other chronic an incidental finding. I personally reviewed the CT of the head and I agree there is no acute or subacute ischemic and there is no truncal hemorrhage. I feel the posterior horn of the lateral ventricles are dilated. It does not feel different compared to MRI Brain in 2018. Routine EEG is abnormal. The back of slowing suggestive of mild to moderate encephalopathy. Otherwise there is no focal slowing, epileptiform discharges or seizure on the EEG. MRI of the brain is reported as no acute abnormality. Sinus disease. Age- related changes of atrophy and chronic small vessel ischemia. I personally reviewed MRI and agree with report. - Labs CBC & Chem 7: 08/26/21 09:38 08/27/21 09:06 Labs: Abnormal Lab Results - Last 24 Hours (Table) 08/27/21 08/27/21 Range/Units 09:06 09:06 BUN 38 H (9-20) mg/dL Creatinine 1.48 H (0.66-1.25) mg/dL Glucose 156 H (74-99) mg/dL Procalcitonin 0.15 H (0.02-0.09) ng/mL Microbiology - Last 24 Hours (Table) 08/24/21 17:32 Blood Culture - Preliminary Blood No Growth after 72 hours Assessment and Plan Assessment: Encephalopathy likely due to medication effect (Steroids) and metabolic encephalopathy -slight improving. Also has component due to his advanced dementia Suspect Lewy Body Dementia over Idiopathic Parkinson's (from history that patient initially had dementia then parkinson's symptoms and has visual halluc ination). His condition seems advanced REM sleep behavior disorder Mild acute kidney injury due to dehydration Urinary retention s/ martini cath History of Prostate disease s/p resection Plan: I stopped the Sinemet on 08/26/2021 since stated when he was on it he had w orsening visual hallucination. I stopped Aricept since has urinary retention and can cause worsening of mentation. Continue Melatonin 3mg qhs and Clonazepam 0.25mg qhs which both started on 08/26/21. Regarding Clonazepam, will titrate up to 0.5mg qhs for his REM behavioral disorder but it can cause drowsiness during the day and tolerance especially over the day. Please avoid any steroids, narcotic oral opiates that affect the patient's mentation Q4 hour neuro checks. Will defer the rest of management to primary team. Upon discharge, recommend patient to follow-up with a neurologist within 1-2 weeks. The plan is discussed with patient and son and daughter who are at bedside. Will follow-up sporadically. If improves patient is clear from neurological perspective. Jeferson Gonzalez M.D. Neuro-Hospitalist Time with Patient: Less than 30
[2021-08-28] MEDS: DEXTROSE 5%-0.9% NACL 1,000 ML IV SCH (17:44)
[2021-08-28] MEDS: TAMSULOSIN 0.4 MG CAP.ER.24H PO SCH (17:46)
[2021-08-28] MEDS: allopurinoL 100 MG TAB PO SCH (17:46)
--- NOTE | 2021-08-28 18:12 | P.PN ---
Subjective This is a pleasant 81 minute with past medical history of : Dementia, Pneumonia, Prostate Disorder status post prostate surgical removal, Parkinson disease Presents because of cough and subjective fever and generalized weakness. Patient somewhat disappointed historian and information was obtained with the help of his son they'll at bedside. Family stated that patient has been complaining of from cough as well as his , so they took him to the clinic in [place] which referred him to the hospital for his weakness. As per son patient has been having this cough and for the last 3 days and it is associated in the beginning with sore throat. Also he had some runny nose but the son states that this is a chronic. Currently no sore throat, no chest pain or dyspnea at rest. Patient denies fever. No diarrhea or vomiting Her family stated that patient have difficulty getting up from chair or walking, he started using her walker the last few days Also patient looks confused. The family also does not look much concerned because this been happening up and down. Patient knows he is in the hospital but could not tell which hospital or sitting, he is disoriented to time and person. He thought his son they'll at bedside is his brother Johnny. Patient also has no insight into his illness Patient also has history of Parkinson disease for many years, he has mild resting tremor today. Patient also complaining of from difficulty passing urine but no dysuria. No smoking, alcohol or illicit tracts Patient is hemodynamically stable. He is afebrile. Labs including CBC showed only mild lymphopenia, BMP showing mildly elevated creatinine 1.29 compared to baseline of 1.1. Rest of BMP and liver enzymes are unremarkable. Troponin is negative less than 0.012. ProBNP is negative at 325. Urinalysis is negative. Coronavirus and influenza viruses are undetected EKG showing junctional rhythm While chest x-ray showing congestive heart failure with small pleural effusion as per report On admission patient received 1 dose of ceftriaxone. He was started on 08/24/2021 Patient today still confused, he has difficulty holding stop because of his worsening tremors in both upper and lower extremities as well as his head. It looks more stiff. This could be related to his worsening Parkinson before we going to consult neurology service. Repeat chest x-ray showed clearing of pulmonary congestion and interstitial i nfiltrates per radiologist. Echocardiogram showing preserved ejection fraction 55-60%, CT of the brain is negative for acute process. Chest x-ray showed clearing of pulmonary congestion with interstitial infiltrates improved radiologist. Poorcalcitonin is not significantly elevated and it is only at 0.11. No fever. No significant tachycardia or tachypnea. His medication. He was started on Solu-Medrol and antibiotics changed to Zosyn. Also patient will be transferred to Discussed with the son at bedside. 08/25/2021 I assessed the patient twice first occurred in the morning and later on together with the neurologist, and both occasions the Monday was at bedside. Patient today is more confused, he does not follow commands or answer questions, he has tremor and abnormal jerking movements of both of upper and lower extremities especially at rest but more patient tried to move or patient provoked. Patient withdrawal to painful stimuli. No abnormal posters. Patient paid attention and opens eyes when call his name. Neurologist on the case and recommended EEG which shows no seizure-like activity. There is [id number] encephalopathy. Repeat his x-ray showing no consolidation and was reviewed by myself. Patient remains on Zosyn and we will repeatcalcitonin also we will repeat other labs. Repeat CBC, BMP magnesium, liver enzymes and poorcalcitonin. B12, hemoglobin A1c, folic acid and TSH were unremarkable. Echocardiogram showed ejection fraction of 55-60%. Suspicion of infection is low however patient tripped on antibiotic. Possibility patient has last dementia and Parkinson disease, also with may be affected by medication. Therefore steroids was discontinued today. Patient on high-dose of donpezil , memantine and Sinemet. 08/26/2021 Patient is more calm today, less confused, he is a sleepy and wakes up to verbal stimuli, he answers questions and follow commands more appropriately compared to yesterday. He is forgetful, he could not recognize his son at bedside No evidence of cellulitis, he has some mild abdominal tenderness especially on the right side short of its significance however we going to recommend computed tomography scan of the abdomen with oral contrast. Also his creatinine went up to 1.6 from 1.2. We lowered his IV fluids D5 normal saline down to 50 mL per hour. Also will check bladder scan was more than 300 with evidence of ureteral retention. We start Flomax and consider straight cath versus Menard catheter Discussed with family to encourage reorientation to the patient reacted He is eating well and tolerates diet, he finished 50-75% of his diet today. Neurology input is appreciated, Sinemet was discontinued. Steroids was discontinued also from yesterday which might contribute to patient clinical picture. Patient was started on melatonin and small dose of Klonopin and we will keep monitoring 08/27/2021 Both brothers were at bedside today together with the neurologist while examining the patient. As per brothers yesterday evening patient was more awake and he had good conversation with brothers, and he couldn't recognize their names correctly. However this morning is again more confused which is goes with delirium secondary to toxic metabolic encephalopathy. MRI of the brain is negative for acute process or infarct or ischemia. But showing age-related atrophy and chronic small vessel ischemia. Creatinine actually is trending down today 1.6 down to 1.4. Chest x-ray showing no acute changes but poorcalcitonin is trending down 0.15 showing improvement in his infection which is most likely pneumonia seen on CAT scan of the abdomen yesterday. Patient remains on Zosyn. Patient has evidence of urine retention which is resolved after a pleasant Menard catheter. This may be contributing to altered mental status. We'll start Flomax as well. Once this might benefit from a urologist as an outpatient. Contact information placed in the discharge instructions 08/28/2021 Patient awake, somewhat sleepy and lethargic but he knows his name and he was in the hospital but he was disoriented worse hours, today his clinical picture similar to the day he came to the hospital. He denies any specific other symptoms. I discussed the case with neurology today. Patient continued on clonidine and melatonin for REM sleep behavioral disorder. Other than that vitals are stable. Brain MRI showing no acute abnormality just H related atrophy and chronic small vessel ischemia. Patient continued on Zosyn, normal saline at 50 mL per hour, melatonin and Klonopin as above, Sinemet and Aricept are discontinued. Still has Menard catheter for urinary retention There is suspicion patient is keep swallowing problems which might lead to aspiration, we'll ask for swallowing evaluation which is pending. Monday. In the meantime discussed with the staff to keep aspiration precautions. Discussed with the son at bedside Prognosis remains guarded Objective - Vital Signs Vital signs: Vital Signs Temp 97.8 F 08/28/21 09:10 Pulse 73 08/28/21 13:40 Resp 18 08/28/21 13:40 BP 108/71 08/28/21 12:05 Pulse Ox 94 L 08/28/21 12:05 FiO2 21 08/27/21 08:01 Intake & Output 08/27/21 08/28/21 08/28/21 18:59 06:59 18:59 Intake Total 100 120 Output Total 1175 650 Balance -1075 -650 120 Intake: Intake, IV Titration 100 Amount Piperacillin-Tazobactam 3 100 .375 gm In Sodium Chloride 0.9% 100 ml @ 25 mls/hr IVPB Q8H [facility] Rx#: [id number] Oral 120 Output: Urine 1175 650 Uretheral (Menard) 725 Other: Voiding Method Diaper Indwelling Catheter Indwelling Catheter Incontinent - Exam -GENERAL: The patient is confused, sleepy but awakes to verbal stimuli, he does follow commands today, not in any acute distress. under developed and generalized weakness HEENT: Pupils are round and equally reacting to light. EOMI. No scleral icterus. No conjunctival pallor. Normocephalic, atraumatic. No pharyngeal erythema. No thyromegaly. CARDIOVASCULAR: S1 and S2 present. No murmurs, rubs, or gallops. PULMONARY: Chest is clear to auscultation, no wheezing or crackles. -ABDOMEN: Soft, mild right abdominal tenderness, no rebound tenderness, no guarding, nondistended, normoactive bowel sounds. No palpable organomegaly. MUSCULOSKELETAL: No joint swelling or deformity. EXTREMITIES: No cyanosis, clubbing, or pedal edema. -NEUROLOGICAL: Gross neurological examination did not reveal any focal deficits. Patient is confused, he does not follows commands. Cranial nerves are grossly intact. Meningeal signs are absent He has some generalized weakness but he denies any numbness SKIN: No rashes. No petechiae - Labs CBC & Chem 7: 08/26/21 09:38 08/27/21 09:06 Labs: Abnormal Lab Results - Last 24 Hours (Table) 08/27/21 Range/Units 09:06 Procalcitonin 0.15 H (0.02-0.09) ng/mL Microbiology - Last 24 Hours (Table) 08/24/21 17:32 Blood Culture - Preliminary Blood No Growth after 72 hours Assessment and Plan Assessment: Altered mental status most likely metabolic and more toxic encephalopathy,on the top of advanced dementia. 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 Improved. Urinary retention, status post Menard catheter Mild abdominal pain, rule out intra-abdominal pathology Generalized weakness and deconditioning Mild acute kidney injury and dehydration, improved Alzheimer dementia History of Parkinson disease History of prostate disease status post surgical removal of the prostate History of pneumonia Plan: This is a pleasant 81 old male who presents with pneumonia and metabolic encephalopathy Continuous with Zosyn Patient currently kept off his steroids. Also sentiment was discontinued by neurologist Patient is started on melatonin and clonidine Neurology consult Menard catheter placement and Flomax Continue with melatonin and Klonopin per primary team labs and medication were reviewed.. Continue same treatment. Continue with symptomatic treatment. Resume home medication. Monitor lytes and vitals. DVT and GI prophylaxis. Further recommendations depends on the clinical course of the patient DVT prophylaxis: Subcutaneous heparin GI Prophylaxis: Pepcid PT/OT: Recommended subacute rehab, delinquency prevention social worker consulted Prognosis is guarded
[2021-08-28] MEDS: MELATONIN 3 MG TABLET PO SCH (21:10)
[2021-08-28] MEDS: LATANOPROST 0.005% OPHTH DROPS 2.5 ML BTL BOTH EYES SCH (21:10)
[2021-08-28] MEDS: clonazePAM 0.5 MG TAB PO SCH (21:10)
[2021-08-28] MEDS: polyethylene glycoL 3350 17 GM POWD.PACK PO SCH (21:10)
[2021-08-29] MEDS: PIPERACILLIN-TAZOBACTAM 3.375 GM in SODIUM CHLORIDE 0.9% 100 ML IVPB SCH ×3 (02:15→18:10)
[2021-08-29 07:20] LABS: Basophils # (A) 0.1 k/uL (0-0.2); Basophils % (A) 1 %; Eosinophils # (A) 0.3 k/uL (0-0.7); Eosinophils % (A) 7 %; HCT 43.4 % (39.0-53.0); HGB 14.1 gm/dL (13.0-17.5); Lymphocytes # (A) 0.9 k/uL (1.0-4.8); Lymphocytes % (A) 19 %; MCH 29.7 pg (25.0-35.0); MCHC 32.5 g/dL (31.0-37.0); MCV 91.4 fL (80.0-100.0); Mean Platelet Volume 7.9; Monocytes # (A) 0.4 k/uL (0-1.0); Monocytes % (A) 8 %; Neutrophils # (A) 3.2 k/uL (1.3-7.7); Neutrophils % (A) 64 %; Platelet Count 191 k/uL (150-450); RBC 4.75 m/uL (4.30-5.90); RDW 12.3 % (11.5-15.5); WBC 5.1 k/uL (3.8-10.6)
[2021-08-29 07:29] LABS: Calcium 8.7 mg/dL (8.4-10.2); Magnesium 2.2 mg/dL (1.6-2.3); Potassium 4.3 mmol/L (3.5-5.1)
[2021-08-29] MEDS: HEPARIN SODIUM,PORCINE/PF 5,000 UNIT/0.5 ML SYRINGE SQ SCH ×2 (10:29→20:42)
[2021-08-29] MEDS: TIMOLOL 0.5% OPHTH DROPS 5 ML BTL BOTH EYES SCH (10:29)
[2021-08-29] MEDS: FAMOTIDINE 20 MG TAB PO SCH (10:30)
[2021-08-29] MEDS: CHOLECALCIFEROL 25 MCG (1000 IU) TABLET PO SCH (10:30)
[2021-08-29] MEDS: MEMANTINE 10 MG TAB PO SCH ×2 (10:30→20:43)
[2021-08-29] MEDS: ACETAMINOPHEN TAB 325 MG TAB PO PRN (10:30)
[2021-08-29] MEDS: DEXTROSE 5%-0.9% NACL 1,000 ML IV SCH (10:30)
[2021-08-29] MEDS: BUDESONIDE 1 MG/2 ML NEBU INHALATION SCH ×2 (10:34→19:21)
[2021-08-29] MEDS: IPRATROPIUM-ALBUTEROL 3 ML NEB INHALATION SCH ×4 (10:36→19:21)
--- NOTE | 2021-08-29 10:57 | P.PN ---
Subjective Progress Note Date: 08/29/21 The patient is accompanied by the daughter who stated that he is doing better. It seems the patient sleep throughout the day yesterday prior to him receiving the increased Clonazepam. Today he is more aware and responding. per the daughter prior to coming the hospital a week prior he was walking on his own. He does use a cane. Objective - Vital Signs Vital signs: Vital Signs Temp 97.5 F L 08/29/21 07:00 Pulse 76 08/29/21 10:48 Resp 18 08/29/21 07:00 BP 103/68 08/29/21 07:00 Pulse Ox 97 08/29/21 07:00 FiO2 21 08/27/21 08:01 Intake & Output 08/28/21 08/29/21 08/29/21 18:59 06:59 18:59 Intake Total 520 0 Output Total 1645 Balance 520 -1645 0 Intake: Intake, IV Titration 400 Amount Dextrose 5%-0.9% NaCl 1, 300 000 ml @ 50 mls/hr IV . Q20H [facility] Rx#:[id number] Piperacillin-Tazobactam 3 100 .375 gm In Sodium Chloride 0.9% 100 ml @ 25 mls/hr IVPB Q8H [facility] Rx#: [id number] Oral 120 0 Output: Urine 1645 Uretheral (Martini) 820 Other: Voiding Method Indwelling Catheter Indwelling Catheter # Bowel Movements 1 - Exam GENERAL: The patient is lying in bed and does not appear in acute distress. NEUROLOGICAL: Higher mental function: The patient is somewhat drowsy but is more awakeable to voice. He is oriented to self. He correctly name objects (watch, pen). He was able to name his daughter and the number or children he has. He is somewhat slow to respond but better today compared to yesterday. No neglect. Cranial nerves: The pupils are round, equal and reactive to light . No facial weakness. Has hypophonia and seems nasal. Protrudes tongue without difficulty. Motor: The strength is 5/5 throughout the uppers while lowers is moving above gravity but hard to assess lowers individual because of cooperation. Has tra nsient episode of tremors of his body. Normal tone. Cerebellum: Is hard to assess. Some of the workup during this admission in our facility consisted of: Vitamin B12: 1290 TSH: 1.980 Ammonia <9 Urinalysis is negative for urinary tract infection. Soto virus PCR was not detected. Influenza A and B is not detected. CT of the head is reported as no acute intracranial hemorrhage or gross acute cortical infarct. Brain volume loss changes and suspected chronic microvascular ischemic changes with other chronic an incidental finding. I personally reviewed the CT of the head and I agree there is no acute or subacute ischemic and there is no truncal hemorrhage. I feel the posterior horn of the lateral ventricles are dilated. It does not feel different compared to MRI Brain in 2018. Routine EEG is abnormal. The back of slowing suggestive of mild to moderate encephalopathy. Otherwise there is no focal slowing, epileptiform discharges or seizure on the EEG. MRI of the brain is reported as no acute abnormality. Sinus disease. Age- related changes of atrophy and chronic small vessel ischemia. I personally reviewed MRI and agree with report. - Labs CBC & Chem 7: 08/29/21 06:45 08/29/21 06:45 Labs: Abnormal Lab Results - Last 24 Hours (Table) 08/29/21 08/29/21 Range/Units 06:45 06:45 Lymphocytes # 0.9 L (1.0-4.8) k/uL Chloride 110 H (98-107) mmol/L BUN 34 H (9-20) mg/dL Creatinine 1.35 H (0.66-1.25) mg/dL Microbiology - Last 24 Hours (Table) 08/28/21 17:58 Gram Stain - Preliminary Sputum Sputum Culture - Preliminary 08/24/21 17:32 Blood Culture - Preliminary Blood No Growth after 96 hours Assessment and Plan Assessment: Encephalopathy likely due to medication effect (Steroids) and metabolic encephalopathy Also has component due to his advanced dementia. ---mentation im proving compared to presentation but not back to baseline. Suspect Lewy Body Dementia over Idiopathic Parkinson's (from history that patient initially had dementia then parkinson's symptoms and has visual hallucination). His condition seems advanced REM sleep behavior disorder Mild acute kidney injury due to dehydration Urinary retention s/ martini cath History of Prostate disease s/p resection Plan: I stopped the Sinemet on 08/26/2021 since stated when he was on it he had worsening visual hallucination. I stopped Aricept since has urinary retention and can cause worsening of mentation. Continue Melatonin 3mg qhs and Clonazepam 0.5mg qhs which both started on 08/26/21. Regarding Clonazepam, will titrate up down the line if needed slowly for his REM behavioral disorder but it can cause drowsiness during the day and tolerance especially over the day. Please avoid any steroids, narcotic oral opiates that affect the patient's mentation Q4 hour neuro checks. Will defer the rest of management to primary team. Upon discharge, recommend patient to follow-up with a neurologist within 1-2 weeks (family wishes patient to follow-up with me as outpatient). The plan is discussed with patient's daughter in length. Will follow-up sporadically. If improves patient is clear for discharge from neurological perspective. Dr. Moon will start neurology service tomorrow AM. Jeferson Gonzalez M.D. Neuro-Hospitalist Time with Patient: Less than 30
[2021-08-29] MEDS: allopurinoL 100 MG TAB PO SCH (18:10)
[2021-08-29] MEDS: TAMSULOSIN 0.4 MG CAP.ER.24H PO SCH (18:10)
--- NOTE | 2021-08-29 18:55 | P.PN ---
Subjective This is a pleasant 81 minute with past medical history of : Dementia, Pneumonia, Prostate Disorder status post prostate surgical removal, Parkinson disease Presents because of cough and subjective fever and generalized weakness. Patient somewhat disappointed historian and information was obtained with the help of his son they'll at bedside. Family stated that patient has been complaining of from cough as well as his , so they took him to the clinic in [place] which referred him to the hospital for his weakness. As per son patient has been having this cough and for the last 3 days and it is associated in the beginning with sore throat. Also he had some runny nose but the son states that this is a chronic. Currently no sore throat, no chest pain or dyspnea at rest. Patient denies fever. No diarrhea or vomiting Her family stated that patient have difficulty getting up from chair or walking, he started using her walker the last few days Also patient looks confused. The family also does not look much concerned because this been happening up and down. Patient knows he is in the hospital but could not tell which hospital or sitting, he is disoriented to time and person. He thought his son they'll at bedside is his brother Johnny. Patient also has no insight into his illness Patient also has history of Parkinson disease for many years, he has mild resting tremor today. Patient also complaining of from difficulty passing urine but no dysuria. No smoking, alcohol or illicit tracts Patient is hemodynamically stable. He is afebrile. Labs including CBC showed only mild lymphopenia, BMP showing mildly elevated creatinine 1.29 compared to baseline of 1.1. Rest of BMP and liver enzymes are unremarkable. Troponin is negative less than 0.012. ProBNP is negative at 325. Urinalysis is negative. Coronavirus and influenza viruses are undetected EKG showing junctional rhythm While chest x-ray showing congestive heart failure with small pleural effusion as per report On admission patient received 1 dose of ceftriaxone. He was started on 08/24/2021 Patient today still confused, he has difficulty holding stop because of his worsening tremors in both upper and lower extremities as well as his head. It looks more stiff. This could be related to his worsening Parkinson before we going to consult neurology service. Repeat chest x-ray showed clearing of pulmonary congestion and interstitial i nfiltrates per radiologist. Echocardiogram showing preserved ejection fraction 55-60%, CT of the brain is negative for acute process. Chest x-ray showed clearing of pulmonary congestion with interstitial infiltrates improved radiologist. Poorcalcitonin is not significantly elevated and it is only at 0.11. No fever. No significant tachycardia or tachypnea. His medication. He was started on Solu-Medrol and antibiotics changed to Zosyn. Also patient will be transferred to Discussed with the son at bedside. 08/25/2021 I assessed the patient twice first occurred in the morning and later on together with the neurologist, and both occasions the Monday was at bedside. Patient today is more confused, he does not follow commands or answer questions, he has tremor and abnormal jerking movements of both of upper and lower extremities especially at rest but more patient tried to move or patient provoked. Patient withdrawal to painful stimuli. No abnormal posters. Patient paid attention and opens eyes when call his name. Neurologist on the case and recommended EEG which shows no seizure-like activity. There is [id number] encephalopathy. Repeat his x-ray showing no consolidation and was reviewed by myself. Patient remains on Zosyn and we will repeatcalcitonin also we will repeat other labs. Repeat CBC, BMP magnesium, liver enzymes and poorcalcitonin. B12, hemoglobin A1c, folic acid and TSH were unremarkable. Echocardiogram showed ejection fraction of 55-60%. Suspicion of infection is low however patient tripped on antibiotic. Possibility patient has last dementia and Parkinson disease, also with may be affected by medication. Therefore steroids was discontinued today. Patient on high-dose of donpezil , memantine and Sinemet. 08/26/2021 Patient is more calm today, less confused, he is a sleepy and wakes up to verbal stimuli, he answers questions and follow commands more appropriately compared to yesterday. He is forgetful, he could not recognize his son at bedside No evidence of cellulitis, he has some mild abdominal tenderness especially on the right side short of its significance however we going to recommend computed tomography scan of the abdomen with oral contrast. Also his creatinine went up to 1.6 from 1.2. We lowered his IV fluids D5 normal saline down to 50 mL per hour. Also will check bladder scan was more than 300 with evidence of ureteral retention. We start Flomax and consider straight cath versus Menard catheter Discussed with family to encourage reorientation to the patient reacted He is eating well and tolerates diet, he finished 50-75% of his diet today. Neurology input is appreciated, Sinemet was discontinued. Steroids was discontinued also from yesterday which might contribute to patient clinical picture. Patient was started on melatonin and small dose of Klonopin and we will keep monitoring 08/27/2021 Both brothers were at bedside today together with the neurologist while examining the patient. As per brothers yesterday evening patient was more awake and he had good conversation with brothers, and he couldn't recognize their names correctly. However this morning is again more confused which is goes with delirium secondary to toxic metabolic encephalopathy. MRI of the brain is negative for acute process or infarct or ischemia. But showing age-related atrophy and chronic small vessel ischemia. Creatinine actually is trending down today 1.6 down to 1.4. Chest x-ray showing no acute changes but poorcalcitonin is trending down 0.15 showing improvement in his infection which is most likely pneumonia seen on CAT scan of the abdomen yesterday. Patient remains on Zosyn. Patient has evidence of urine retention which is resolved after a pleasant Menard catheter. This may be contributing to altered mental status. We'll start Flomax as well. Once this might benefit from a urologist as an outpatient. Contact information placed in the discharge instructions 08/28/2021 Patient awake, somewhat sleepy and lethargic but he knows his name and he was in the hospital but he was disoriented worse hours, today his clinical picture similar to the day he came to the hospital. He denies any specific other symptoms. I discussed the case with neurology today. Patient continued on clonidine and melatonin for REM sleep behavioral disorder. Other than that vitals are stable. Brain MRI showing no acute abnormality just H related atrophy and chronic small vessel ischemia. Patient continued on Zosyn, normal saline at 50 mL per hour, melatonin and Klonopin as above, Sinemet and Aricept are discontinued. Still has Menard catheter for urinary retention There is suspicion patient is keep swallowing problems which might lead to aspiration, we'll ask for swallowing evaluation which is pending. Monday. In the meantime discussed with the staff to keep aspiration precautions. Discussed with the son at bedside Prognosis remains guarded 08/29/2021 Patient is still confused although it looks similar to presentation and improved compared to last 3-4 days ago. at bedside states that her father could recognize her although he had some confusion about the other information. Also patient has not been eating well, we'll do a swallow evaluation tomorrow. Continue with Menard catheter Creatinine stable or slightly better at 1.35. We will repeat labs tomorrow patient still on Zosyn, normal saline at 50 mL/h and melatonin and Klonopin 0.5 recommended by neurologist. Sinemet and Aricept were discontinued. Family were thinking of taking home tomorrow but they agree to stay in the hospital for now. Patient can be transferred out of select unit to the general medical floor with close monitoring. Objective - Vital Signs Vital signs: Vital Signs Temp 97.2 F L 08/29/21 15:12 Pulse 88 08/29/21 15:57 Resp 18 08/29/21 15:12 BP 119/88 08/29/21 15:12 Pulse Ox 99 08/29/21 15:45 FiO2 21 08/29/21 15:45 Intake & Output 08/28/21 08/29/21 08/29/21 18:59 06:59 18:59 Intake Total 520 940 Output Total 1645 950 Balance 520 -1645 -10 Intake: IV 820 Dextrose 5%-0.9% NaCl 1, 600 000 ml @ 50 mls/hr IV . Q20H DIANA Rx#:[id number] Invasive Line 3 20 Piperacillin-Tazobactam 3 200 .375 gm In Sodium Chloride 0.9% 100 ml @ 25 mls/hr IVPB Q8H DIANA Rx#: [id number] Intake, IV Titration 400 Amount Dextrose 5%-0.9% NaCl 1, 300 000 ml @ 50 mls/hr IV . Q20H DIANA Rx#:[id number] Piperacillin-Tazobactam 3 100 .375 gm In Sodium Chloride 0.9% 100 ml @ 25 mls/hr IVPB Q8H DIANA Rx#: [id number] Oral 120 120 Output: Urine 1645 950 Uretheral (Menard) 820 300 Other: Voiding Method Indwelling Catheter Indwelling Catheter Indwelling Catheter # Voids 1 # Bowel Movements 1 2 - Exam -GENERAL: The patient is confused, sleepy but awakes to verbal stimuli, he does follow commands today, not in any acute distress. under developed and generalized weakness HEENT: Pupils are round and equally reacting to light. EOMI. No scleral icterus. No conjunctival pallor. Normocephalic, atraumatic. No pharyngeal erythema. No thyromegaly. CARDIOVASCULAR: S1 and S2 present. No murmurs, rubs, or gallops. PULMONARY: Chest is clear to auscultation, no wheezing or crackles. -ABDOMEN: Soft, mild right abdominal tenderness, no rebound tenderness, no guarding, nondistended, normoactive bowel sounds. No palpable organomegaly. MUSCULOSKELETAL: No joint swelling or deformity. EXTREMITIES: No cyanosis, clubbing, or pedal edema. -NEUROLOGICAL: Gross neurological examination did not reveal any focal deficits. Patient is confused, he does not follows commands. Cranial nerves are grossly intact. Meningeal signs are absent He has some generalized weakness but he denies any numbness SKIN: No rashes. No petechiae - Labs CBC & Chem 7: 08/29/21 06:45 08/29/21 06:45 Labs: Abnormal Lab Results - Last 24 Hours (Table) 08/29/21 08/29/21 Range/Units 06:45 06:45 Lymphocytes # 0.9 L (1.0-4.8) k/uL Chloride 110 H (98-107) mmol/L BUN 34 H (9-20) mg/dL Creatinine 1.35 H (0.66-1.25) mg/dL Microbiology - Last 24 Hours (Table) 08/28/21 17:58 Gram Stain - Preliminary Sputum Sputum Culture - Preliminary 08/24/21 17:32 Blood Culture - Preliminary Blood No Growth after 96 hours Assessment and Plan Assessment: Altered mental status most likely metabolic and more toxic encephalopathy,on the top of advanced dementia. 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 Improved. Urinary retention, status post Menard catheter Mild abdominal pain, rule out intra-abdominal pathology Generalized weakness and deconditioning Mild acute kidney injury and dehydration, improved Alzheimer dementia History of Parkinson disease History of prostate disease status post surgical removal of the prostate History of pneumonia Plan: This is a pleasant 81 old male who presents with pneumonia and metabolic encephalopathy Continuous with Zosyn Patient currently kept off his steroids. Also sentiment was discontinued by neurologist Patient is started on melatonin and clonidine Neurology consult Menard catheter placement and Flomax Continue with melatonin and Klonopin per primary team labs and medication were reviewed.. Continue same treatment. Continue with symptomatic treatment. Resume home medication. Monitor lytes and vitals. DVT and GI prophylaxis. Further recommendations depends on the clinical course of the patient DVT prophylaxis: Subcutaneous heparin GI Prophylaxis: Pepcid PT/OT: Recommended subacute rehab, social welfare administrator consulted Prognosis is guarded
[2021-08-29] MEDS: polyethylene glycoL 3350 17 GM POWD.PACK PO SCH (20:35)
[2021-08-29] MEDS: clonazePAM 0.5 MG TAB PO SCH (20:42)
[2021-08-29] MEDS: LATANOPROST 0.005% OPHTH DROPS 2.5 ML BTL BOTH EYES SCH (20:43)
[2021-08-29] MEDS: MELATONIN 3 MG TABLET PO SCH (20:43)
[2021-08-30] MEDS: PIPERACILLIN-TAZOBACTAM 3.375 GM in SODIUM CHLORIDE 0.9% 100 ML IVPB SCH ×3 (03:42→18:07)
[2021-08-30 08:08] LABS: Albumin 3.5 g/dL (3.5-5.0); Bilirubin, Delta 0.1 mg/dL (0.0-0.2); Bilirubin,Unconjugated 0.3 mg/dL (0.0-1.1); Calcium 8.7 mg/dL (8.4-10.2); Magnesium 2.1 mg/dL (1.6-2.3); Potassium 4.1 mmol/L (3.5-5.1); Total Bilirubin 0.4 mg/dL (0.2-1.3); Total Protein 6.3 g/dL (6.3-8.2)
[2021-08-30] MEDS: BUDESONIDE 1 MG/2 ML NEBU INHALATION SCH ×2 (08:38→20:37)
[2021-08-30] MEDS: IPRATROPIUM-ALBUTEROL 3 ML NEB INHALATION SCH ×4 (08:38→20:37)
[2021-08-30] MEDS: MEMANTINE 10 MG TAB PO SCH ×2 (09:36→20:21)
[2021-08-30] MEDS: FAMOTIDINE 20 MG TAB PO SCH (09:37)
[2021-08-30] MEDS: TIMOLOL 0.5% OPHTH DROPS 5 ML BTL BOTH EYES SCH (09:37)
[2021-08-30] MEDS: CHOLECALCIFEROL 25 MCG (1000 IU) TABLET PO SCH (09:37)
[2021-08-30] MEDS: HEPARIN SODIUM,PORCINE/PF 5,000 UNIT/0.5 ML SYRINGE SQ SCH ×2 (09:37→20:20)
[2021-08-30] MEDS: DEXTROSE 5%-0.9% NACL 1,000 ML IV SCH (09:37)
--- NOTE | 2021-08-30 11:07 | XR ---
EXAMINATION TYPE: XR chest 1V DATE OF EXAM: 08/30/2021 COMPARISON: X-ray dated 08/27/2021 HISTORY: Dyspnea TECHNIQUE: Single frontal view of the chest is obtained. FINDINGS: Prominent interstitial lung markings, nonspecific and could be age-related however mild pulmonary noemi ma can't be excluded. Cardiomegaly, please correlate echocardiographic results. No justina area of pulmonary consolidation. No sizable pleural effusion or definite pneumothorax. Aorti c atherosclerotic calcifications. Degenerative changes of the thoracic spine. IMPRESSION: As above.
[2021-08-30] MEDS: allopurinoL 100 MG TAB PO SCH (18:07)
[2021-08-30] MEDS: TAMSULOSIN 0.4 MG CAP.ER.24H PO SCH (18:07)
--- NOTE | 2021-08-30 19:19 | P.PN ---
Subjective This is a pleasant 81 minute with past medical history of : Dementia, Pneumonia, Prostate Disorder status post prostate surgical removal, Parkinson disease Presents because of cough and subjective fever and generalized weakness. Patient somewhat disappointed historian and information was obtained with the help of his son they'll at bedside. Family stated that patient has been complaining of from cough as well as his , so they took him to the clinic in [place] which referred him to the hospital for his weakness. As per son patient has been having this cough and for the last 3 days and it is associated in the beginning with sore throat. Also he had some runny nose but the son states that this is a chronic. Currently no sore throat, no chest pain or dyspnea at rest. Patient denies fever. No diarrhea or vomiting Her family stated that patient have difficulty getting up from chair or walking, he started using her walker the last few days Also patient looks confused. The family also does not look much concerned because this been happening up and down. Patient knows he is in the hospital but could not tell which hospital or sitting, he is disoriented to time and person. He thought his son they'll at bedside is his brother Johnny. Patient also has no insight into his illness Patient also has history of Parkinson disease for many years, he has mild resting tremor today. Patient also complaining of from difficulty passing urine but no dysuria. No smoking, alcohol or illicit tracts Patient is hemodynamically stable. He is afebrile. Labs including CBC showed only mild lymphopenia, BMP showing mildly elevated creatinine 1.29 compared to baseline of 1.1. Rest of BMP and liver enzymes are unremarkable. Troponin is negative less than 0.012. ProBNP is negative at 325. Urinalysis is negative. Coronavirus and influenza viruses are undetected EKG showing junctional rhythm While chest x-ray showing congestive heart failure with small pleural effusion as per report On admission patient received 1 dose of ceftriaxone. He was started on 08/24/2021 Patient today still confused, he has difficulty holding stop because of his worsening tremors in both upper and lower extremities as well as his head. It looks more stiff. This could be related to his worsening Parkinson before we going to consult neurology service. Repeat chest x-ray showed clearing of pulmonary congestion and interstitial i nfiltrates per radiologist. Echocardiogram showing preserved ejection fraction 55-60%, CT of the brain is negative for acute process. Chest x-ray showed clearing of pulmonary congestion with interstitial infiltrates improved radiologist. Poorcalcitonin is not significantly elevated and it is only at 0.11. No fever. No significant tachycardia or tachypnea. His medication. He was started on Solu-Medrol and antibiotics changed to Zosyn. Also patient will be transferred to Discussed with the son at bedside. 08/25/2021 I assessed the patient twice first occurred in the morning and later on together with the neurologist, and both occasions the Monday was at bedside. Patient today is more confused, he does not follow commands or answer questions, he has tremor and abnormal jerking movements of both of upper and lower extremities especially at rest but more patient tried to move or patient provoked. Patient withdrawal to painful stimuli. No abnormal posters. Patient paid attention and opens eyes when call his name. Neurologist on the case and recommended EEG which shows no seizure-like activity. There is [id number] encephalopathy. Repeat his x-ray showing no consolidation and was reviewed by myself. Patient remains on Zosyn and we will repeatcalcitonin also we will repeat other labs. Repeat CBC, BMP magnesium, liver enzymes and poorcalcitonin. B12, hemoglobin A1c, folic acid and TSH were unremarkable. Echocardiogram showed ejection fraction of 55-60%. Suspicion of infection is low however patient tripped on antibiotic. Possibility patient has last dementia and Parkinson disease, also with may be affected by medication. Therefore steroids was discontinued today. Patient on high-dose of donpezil , memantine and Sinemet. 08/26/2021 Patient is more calm today, less confused, he is a sleepy and wakes up to verbal stimuli, he answers questions and follow commands more appropriately compared to yesterday. He is forgetful, he could not recognize his son at bedside No evidence of cellulitis, he has some mild abdominal tenderness especially on the right side short of its significance however we going to recommend computed tomography scan of the abdomen with oral contrast. Also his creatinine went up to 1.6 from 1.2. We lowered his IV fluids D5 normal saline down to 50 mL per hour. Also will check bladder scan was more than 300 with evidence of ureteral retention. We start Flomax and consider straight cath versus Menard catheter Discussed with family to encourage reorientation to the patient reacted He is eating well and tolerates diet, he finished 50-75% of his diet today. Neurology input is appreciated, Sinemet was discontinued. Steroids was discontinued also from yesterday which might contribute to patient clinical picture. Patient was started on melatonin and small dose of Klonopin and we will keep monitoring 08/27/2021 Both brothers were at bedside today together with the neurologist while examining the patient. As per brothers yesterday evening patient was more awake and he had good conversation with brothers, and he couldn't recognize their names correctly. However this morning is again more confused which is goes with delirium secondary to toxic metabolic encephalopathy. MRI of the brain is negative for acute process or infarct or ischemia. But showing age-related atrophy and chronic small vessel ischemia. Creatinine actually is trending down today 1.6 down to 1.4. Chest x-ray showing no acute changes but poorcalcitonin is trending down 0.15 showing improvement in his infection which is most likely pneumonia seen on CAT scan of the abdomen yesterday. Patient remains on Zosyn. Patient has evidence of urine retention which is resolved after a pleasant Menard catheter. This may be contributing to altered mental status. We'll start Flomax as well. Once this might benefit from a urologist as an outpatient. Contact information placed in the discharge instructions 08/28/2021 Patient awake, somewhat sleepy and lethargic but he knows his name and he was in the hospital but he was disoriented worse hours, today his clinical picture similar to the day he came to the hospital. He denies any specific other symptoms. I discussed the case with neurology today. Patient continued on clonidine and melatonin for REM sleep behavioral disorder. Other than that vitals are stable. Brain MRI showing no acute abnormality just H related atrophy and chronic small vessel ischemia. Patient continued on Zosyn, normal saline at 50 mL per hour, melatonin and Klonopin as above, Sinemet and Aricept are discontinued. Still has Menard catheter for urinary retention There is suspicion patient is keep swallowing problems which might lead to aspiration, we'll ask for swallowing evaluation which is pending. Monday. In the meantime discussed with the staff to keep aspiration precautions. Discussed with the son at bedside Prognosis remains guarded 08/29/2021 Patient is still confused although it looks similar to presentation and improved compared to last 3-4 days ago. at bedside states that her father could recognize her although he had some confusion about the other information. Also patient has not been eating well, we'll do a swallow evaluation tomorrow. Continue with Menard catheter Creatinine stable or slightly better at 1.35. We will repeat labs tomorrow patient still on Zosyn, normal saline at 50 mL/h and melatonin and Klonopin 0.5 recommended by neurologist. Sinemet and Aricept were discontinued. Family were thinking of taking home tomorrow but they agree to stay in the hospital for now. Patient can be transferred out of select unit to the general medical floor with close monitoring. 08/30/2021 Patient still confused and sleepy although his mentation is walks and waning, no respiratory distress, no abdominal complaint, Menard catheter was discontinued, bladder scan today is 152-200, so he does not need another Menard catheter for now. Also he passed swallow evaluation with special diet, (dysphagia level 3 chopped/thin liquids. Further recommended small bites/sips, upright positioning with all PO intake and 1:1 assist. Pt may have straws) Histologic clumping in normal saline at 50 L/h, which a chest x-ray, no pulmonary congestion, no consolidation is breathing quietly. He finishes half of his meals I talked to both sons at bedside they haven't decided whether to take the patient home or ECF Possible discharge in 24-48 hours if he remains stable and keep improvement Objective - Vital Signs Vital signs: Vital Signs Temp 97.9 F 08/30/21 07:00 Pulse 82 08/30/21 08:53 Resp 16 08/30/21 07:00 BP 114/75 08/30/21 07:00 Pulse Ox 97 08/30/21 07:00 FiO2 21 08/29/21 15:45 Intake & Output 08/29/21 08/30/21 08/30/21 18:59 06:59 18:59 Intake Total 940 10 60 Output Total 950 Balance -10 10 60 Weight 68.422 kg Intake: IV 820 10 10 Dextrose 5%-0.9% NaCl 1, 600 000 ml @ 50 mls/hr IV . Q20H DIANA Rx#:[id number] Invasive Line 3 20 Invasive Line 4 10 10 Piperacillin-Tazobactam 3 200 .375 gm In Sodium Chloride 0.9% 100 ml @ 25 mls/hr IVPB Q8H DIANA Rx#: [id number] Oral 120 50 Output: Urine 950 Uretheral (Menard) 300 Other: Voiding Method Indwelling Catheter Diaper # Voids 1 2 # Bowel Movements 2 - Exam -GENERAL: The patient is confused, sleepy but awakes to verbal stimuli, he does follow commands today, not in any acute distress. under developed and generalized weakness HEENT: Pupils are round and equally reacting to light. EOMI. No scleral icterus. No conjunctival pallor. Normocephalic, atraumatic. No pharyngeal erythema. No thyromegaly. CARDIOVASCULAR: S1 and S2 present. No murmurs, rubs, or gallops. PULMONARY: Chest is clear to auscultation, no wheezing or crackles. -ABDOMEN: Soft, mild right abdominal tenderness, no rebound tenderness, no guarding, nondistended, normoactive bowel sounds. No palpable organomegaly. MUSCULOSKELETAL: No joint swelling or deformity. EXTREMITIES: No cyanosis, clubbing, or pedal edema. -NEUROLOGICAL: Gross neurological examination did not reveal any focal deficits. Patient is confused, he does not follows commands. Cranial nerves are grossly intact. Meningeal signs are absent He has some generalized weakness but he denies any numbness SKIN: No rashes. No petechiae - Labs CBC & Chem 7: 08/29/21 06:45 08/30/21 07:07 Labs: Abnormal Lab Results - Last 24 Hours (Table) 08/30/21 Range/Units 07:07 BUN 31 H (9-20) mg/dL Glucose 104 H (74-99) mg/dL AST 82 H (17-59) U/L ALT 88 H (4-49) U/L Microbiology - Last 24 Hours (Table) 08/28/21 17:58 Gram Stain - Final Sputum Sputum Culture - Final 08/24/21 17:32 Blood Culture - Preliminary Blood No Growth after 120 hours Assessment and Plan Assessment: Altered mental status most likely metabolic and more toxic encephalopathy,on the top of advanced dementia. 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 Improved. Urinary retention, status post Menard catheter Mild abdominal pain, rule out intra-abdominal pathology Generalized weakness and deconditioning Mild acute kidney injury and dehydration, improved Alzheimer dementia History of Parkinson disease History of prostate disease status post surgical removal of the prostate History of pneumonia Plan: This is a pleasant 81 old male who presents with pneumonia and metabolic encephalopathy Continuous with Zosyn Keep of sentiment Patient is started on melatonin and Klonopin Neurologist have cleared the patient for discharge Menard catheter discontinued and patient continued on Flomax, no further hyperten cece Family to decide about placement versus home labs and medication were reviewed.. Continue same treatment. Continue with symptomatic treatment. Resume home medication. Monitor lytes and vitals. DVT and GI prophylaxis. Further recommendations depends on the clinical course of the patient DVT prophylaxis: Subcutaneous heparin GI Prophylaxis: Pepcid PT/OT: Recommended subacute rehab, hospice social worker consulted Prognosis is guarded
[2021-08-30] MEDS: polyethylene glycoL 3350 17 GM POWD.PACK PO SCH (20:21)
[2021-08-30] MEDS: LATANOPROST 0.005% OPHTH DROPS 2.5 ML BTL BOTH EYES SCH (20:21)
[2021-08-30] MEDS: MELATONIN 3 MG TABLET PO SCH (20:21)
[2021-08-30] MEDS ORDERED: clonazePAM 0.5 MG TAB PO SCH (21:00)
[2021-08-31] MEDS: DEXTROSE 5%-0.9% NACL 1,000 ML IV SCH ×2 (03:53→23:03)
[2021-08-31] MEDS: PIPERACILLIN-TAZOBACTAM 3.375 GM in SODIUM CHLORIDE 0.9% 100 ML IVPB SCH ×3 (03:54→18:12)
[2021-08-31] MEDS: BUDESONIDE 1 MG/2 ML NEBU INHALATION SCH ×2 (09:10→19:15)
[2021-08-31] MEDS: IPRATROPIUM-ALBUTEROL 3 ML NEB INHALATION SCH ×4 (09:10→19:15)
[2021-08-31] MEDS: MEMANTINE 10 MG TAB PO SCH ×3 (09:50→20:38)
[2021-08-31] MEDS: CHOLECALCIFEROL 25 MCG (1000 IU) TABLET PO SCH ×2 (09:51→16:22)
[2021-08-31] MEDS: HEPARIN SODIUM,PORCINE/PF 5,000 UNIT/0.5 ML SYRINGE SQ SCH ×2 (09:51→20:40)
[2021-08-31] MEDS: FAMOTIDINE 20 MG TAB PO SCH ×2 (09:51→16:22)
[2021-08-31] MEDS: TIMOLOL 0.5% OPHTH DROPS 5 ML BTL BOTH EYES SCH ×2 (09:52→16:22)
--- NOTE | 2021-08-31 11:21 | P.PN ---
Subjective This is a pleasant 81 minute with past medical history of : Dementia, Pneumonia, Prostate Disorder status post prostate surgical removal, Parkinson disease Presents because of cough and subjective fever and generalized weakness. Patient somewhat disappointed historian and information was obtained with the help of his son they'll at bedside. Family stated that patient has been complaining of from cough as well as his , so they took him to the clinic [place] which referred him to the hospital for his weakness. As per son patient has been having this cough and for the last 3 days and it is associated in the beginning with sore throat. Also he had some runny nose but the son states that this is a chronic. Currently no sore throat, no chest pain or dyspnea at rest. Patient denies fever. No diarrhea or vomiting Her family stated that patient have difficulty getting up from chair or walking, he started using her walker the last few days Also patient looks confused. The family also does not look much concerned because this been happening up and down. Patient knows he is in the hospital but could not tell which hospital or sitting, he is disoriented to time and person. He thought his son they'll at bedside is his brother Johnny. Patient also has no insight into his illness Patient also has history of Parkinson disease for many years, he has mild resting tremor today. Patient also complaining of from difficulty passing urine but no dysuria. No smoking, alcohol or illicit tracts Patient is hemodynamically stable. He is afebrile. Labs including CBC showed only mild lymphopenia, BMP showing mildly elevated creatinine 1.29 compared to baseline of 1.1. Rest of BMP and liver enzymes are unremarkable. Troponin is negative less than 0.012. ProBNP is negative at 325. Urinalysis is negative. Coronavirus and influenza viruses are undetected EKG showing junctional rhythm While chest x-ray showing congestive heart failure with small pleural effusion as per report On admission patient received 1 dose of ceftriaxone. He was started on 08/24/2021 Patient today still confused, he has difficulty holding stop because of his worsening tremors in both upper and lower extremities as well as his head. It looks more stiff. This could be related to his worsening Parkinson before we going to consult neurology service. Repeat chest x-ray showed clearing of pulmonary congestion and interstitial i nfiltrates per radiologist. Echocardiogram showing preserved ejection fraction 55-60%, CT of the brain is negative for acute process. Chest x-ray showed clearing of pulmonary congestion with interstitial infiltrates improved radiologist. Poorcalcitonin is not significantly elevated and it is only at 0.11. No fever. No significant tachycardia or tachypnea. His medication. He was started on Solu-Medrol and antibiotics changed to Zosyn. Also patient will be transferred to Discussed with the son at bedside. 08/25/2021 I assessed the patient twice first occurred in the morning and later on together with the neurologist, and both occasions the Monday was at bedside. Patient today is more confused, he does not follow commands or answer questions, he has tremor and abnormal jerking movements of both of upper and lower extremities especially at rest but more patient tried to move or patient provoked. Patient withdrawal to painful stimuli. No abnormal posters. Patient paid attention and opens eyes when call his name. Neurologist on the case and recommended EEG which shows no seizure-like activity. There is [id number] encephalopathy. Repeat his x-ray showing no consolidation and was reviewed by myself. Patient remains on Zosyn and we will repeatcalcitonin also we will repeat other labs. Repeat CBC, BMP magnesium, liver enzymes and poorcalcitonin. B12, hemoglobin A1c, folic acid and TSH were unremarkable. Echocardiogram showed ejection fraction of 55-60%. Suspicion of infection is low however patient tripped on antibiotic. Possibility patient has last dementia and Parkinson disease, also with may be affected by medication. Therefore steroids was discontinued today. Patient on high-dose of donpezil , memantine and Sinemet. 08/26/2021 Patient is more calm today, less confused, he is a sleepy and wakes up to verbal stimuli, he answers questions and follow commands more appropriately compared to yesterday. He is forgetful, he could not recognize his son at bedside No evidence of cellulitis, he has some mild abdominal tenderness especially on the right side short of its significance however we going to recommend computed tomography scan of the abdomen with oral contrast. Also his creatinine went up to 1.6 from 1.2. We lowered his IV fluids D5 normal saline down to 50 mL per hour. Also will check bladder scan was more than 300 with evidence of ureteral retention. We start Flomax and consider straight cath versus Menard catheter Discussed with family to encourage reorientation to the patient reacted He is eating well and tolerates diet, he finished 50-75% of his diet today. Neurology input is appreciated, Sinemet was discontinued. Steroids was discontinued also from yesterday which might contribute to patient clinical picture. Patient was started on melatonin and small dose of Klonopin and we will keep monitoring 08/27/2021 Both brothers were at bedside today together with the neurologist while examining the patient. As per brothers yesterday evening patient was more awake and he had good conversation with brothers, and he couldn't recognize their names correctly. However this morning is again more confused which is goes with delirium secondary to toxic metabolic encephalopathy. MRI of the brain is negative for acute process or infarct or ischemia. But showing age-related atrophy and chronic small vessel ischemia. Creatinine actually is trending down today 1.6 down to 1.4. Chest x-ray showing no acute changes but poorcalcitonin is trending down 0.15 showing improvement in his infection which is most likely pneumonia seen on CAT scan of the abdomen yesterday. Patient remains on Zosyn. Patient has evidence of urine retention which is resolved after a pleasant Menard catheter. This may be contributing to altered mental status. We'll start Flomax as well. Once this might benefit from a urologist as an outpatient. Contact information placed in the discharge instructions 08/28/2021 Patient awake, somewhat sleepy and lethargic but he knows his name and he was in the hospital but he was disoriented worse hours, today his clinical picture similar to the day he came to the hospital. He denies any specific other symptoms. I discussed the case with neurology today. Patient continued on clonidine and melatonin for REM sleep behavioral disorder. Other than that vitals are stable. Brain MRI showing no acute abnormality just H related atrophy and chronic small vessel ischemia. Patient continued on Zosyn, normal saline at 50 mL per hour, melatonin and Klonopin as above, Sinemet and Aricept are discontinued. Still has Menard catheter for urinary retention There is suspicion patient is keep swallowing problems which might lead to aspiration, we'll ask for swallowing evaluation which is pending. Monday. In the meantime discussed with the staff to keep aspiration precautions. Discussed with the son at bedside Prognosis remains guarded 08/29/2021 Patient is still confused although it looks similar to presentation and improved compared to last 3-4 days ago. at bedside states that her father could recognize her although he had some confusion about the other information. Also patient has not been eating well, we'll do a swallow evaluation tomorrow. Continue with Menard catheter Creatinine stable or slightly better at 1.35. We will repeat labs tomorrow patient still on Zosyn, normal saline at 50 mL/h and melatonin and Klonopin 0.5 recommended by neurologist. Sinemet and Aricept were discontinued. Family were thinking of taking home tomorrow but they agree to stay in the hospital for now. Patient can be transferred out of select unit to the general medical floor with close monitoring. 08/30/2021 Patient still confused and sleepy although his mentation is walks and waning, no respiratory distress, no abdominal complaint, Menard catheter was discontinued, bladder scan today is 152-200, so he does not need another Menard catheter for now. Also he passed swallow evaluation with special diet, (dysphagia level 3 chopped/thin liquids. Further recommended small bites/sips, upright positioning with all PO intake and 1:1 assist. Pt may have straws) Histologic clumping in normal saline at 50 L/h, which a chest x-ray, no pulmonary congestion, no consolidation is breathing quietly. He finishes half of his meals I talked to both sons at bedside they haven't decided whether to take the patient home or ECF Possible discharge in 24-48 hours if he remains stable and keep improvement 08/31/2021 Patient is very sleepy today even after the dose of Klonopin lower 0.25 yesterday therefore we will control the dose of Klonopin tonight and keep monitoring tomorrow. Also we will check labs today including BMP, liver enzymes and ammonia level. Other than that his poorcalcitonin actually is trending down at 0.11 and he is kept on Zosyn, no significant respiratory symptoms. And his abdomen looks soft. Bladder scan does not need Menard catheter now Objective - Vital Signs Vital signs: Vital Signs Temp 97.6 F 08/30/21 20:06 Pulse 78 08/31/21 09:20 Resp 18 08/31/21 03:51 BP 125/75 08/31/21 03:51 Pulse Ox 97 08/31/21 09:11 FiO2 21 08/29/21 15:45 Intake & Output 08/30/21 08/31/21 08/31/21 18:59 06:59 18:59 Intake Total 228 Balance 228 Weight 68.422 kg Intake: IV 10 Invasive Line 4 10 Oral 218 Other: Voiding Method Diaper Diaper # Voids 4 2 # Bowel Movements 2 - Exam -GENERAL: The patient is confused, sleepy but awakes to verbal stimuli, he does follow commands today, not in any acute distress. under developed and generalized weakness HEENT: Pupils are round and equally reacting to light. EOMI. No scleral icterus. No conjunctival pallor. Normocephalic, atraumatic. No pharyngeal erythema. No thyromegaly. CARDIOVASCULAR: S1 and S2 present. No murmurs, rubs, or gallops. PULMONARY: Chest is clear to auscultation, no wheezing or crackles. -ABDOMEN: Soft, mild right abdominal tenderness, no rebound tenderness, no guarding, nondistended, normoactive bowel sounds. No palpable organomegaly. MUSCULOSKELETAL: No joint swelling or deformity. EXTREMITIES: No cyanosis, clubbing, or pedal edema. -NEUROLOGICAL: Gross neurological examination did not reveal any focal deficits. Patient is confused, he does not follows commands. Cranial nerves are grossly intact. Meningeal signs are absent He has some generalized weakness but he denies any numbness SKIN: No rashes. No petechiae - Labs CBC & Chem 7: 08/29/21 06:45 08/30/21 07:07 Labs: Abnormal Lab Results - Last 24 Hours (Table) 08/30/21 Range/Units 07:07 Procalcitonin 0.11 H (0.02-0.09) ng/mL Microbiology - Last 24 Hours (Table) 08/24/21 17:32 Blood Culture - Final Blood No Growth after 144 hours 08/28/21 17:58 Gram Stain - Final Sputum Sputum Culture - Final Assessment and Plan Assessment: Altered mental status most likely metabolic and more toxic encephalopathy,on the top of advanced dementia. 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 Improved. Urinary retention, status post Menard catheter Mild abdominal pain, rule out intra-abdominal pathology Generalized weakness and deconditioning Mild acute kidney injury and dehydration, improved Alzheimer dementia History of Parkinson disease History of prostate disease status post surgical removal of the prostate History of pneumonia Plan: This is a pleasant 81 old male who presents with pneumonia and metabolic encephalopathy Continuous with Zosyn Keep of sentiment Patient is started on melatonin. Hold Ursula Neurologist have cleared the patient for discharge Menard catheter discontinued and patient continued on Flomax, no further hypertension Family to decide about placement versus home labs and medication were reviewed.. Continue same treatment. Continue with symptomatic treatment. Resume home medication. Monitor lytes and vitals. DVT and GI prophylaxis. Further recommendations depends on the clinical course of the patient DVT prophylaxis: Subcutaneous heparin GI Prophylaxis: Pepcid PT/OT: Recommended subacute rehab, social science professor consulted Prognosis is guarded
[2021-08-31 12:11] LABS: Albumin 3.5 g/dL (3.5-5.0); Bilirubin, Delta 0.1 mg/dL (0.0-0.2); Bilirubin,Unconjugated 0.2 mg/dL (0.0-1.1); Calcium 8.7 mg/dL (8.4-10.2); Potassium 4.1 mmol/L (3.5-5.1); Total Bilirubin 0.3 mg/dL (0.2-1.3); Total Protein 6.3 g/dL (6.3-8.2)
[2021-08-31] MEDS: allopurinoL 100 MG TAB PO SCH (18:12)
[2021-08-31] MEDS: TAMSULOSIN 0.4 MG CAP.ER.24H PO SCH (18:12)
[2021-08-31] MEDS: clonazePAM 0.5 MG TAB PO SCH (20:39)
[2021-08-31] MEDS: MELATONIN 3 MG TABLET PO SCH (20:40)
[2021-08-31] MEDS: LATANOPROST 0.005% OPHTH DROPS 2.5 ML BTL BOTH EYES SCH (20:41)
[2021-08-31] MEDS: polyethylene glycoL 3350 17 GM POWD.PACK PO SCH (20:41)
[2021-09-01] MEDS: IPRATROPIUM-ALBUTEROL 3 ML NEB INHALATION SCH ×4 (08:36→20:32)
[2021-09-01] MEDS: BUDESONIDE 1 MG/2 ML NEBU INHALATION SCH ×2 (08:36→20:32)
[2021-09-01] MEDS: HEPARIN SODIUM,PORCINE/PF 5,000 UNIT/0.5 ML SYRINGE SQ SCH ×2 (08:48→21:39)
[2021-09-01] MEDS: CHOLECALCIFEROL 25 MCG (1000 IU) TABLET PO SCH (08:48)
[2021-09-01] MEDS: MEMANTINE 10 MG TAB PO SCH ×2 (08:48→21:39)
[2021-09-01] MEDS: FAMOTIDINE 20 MG TAB PO SCH (08:48)
[2021-09-01] MEDS: TIMOLOL 0.5% OPHTH DROPS 5 ML BTL BOTH EYES SCH (08:49)
--- NOTE | 2021-09-01 11:33 | P.PN ---
Subjective Progress Note Date: 08/31/21 Patient was seen for a follow-up. Patient's 2 sons were present today. Patient initially seen by Dr. Jeferson Gonzalez. Please refer to his note for details. Patient came to the hospital because of confusion. Patient has history of Lewy body dementia, diagnosed by outside neurologist as Parkinson's disease, although Dr. Gonzalez felt it was more of diffuse Lewy body dementia. Patient has history of REM sleep behavior disorder. Dr. Gonzalez started patient on melatonin and clonazepam 0.5 mg at bedtime. The first dose he received was on Monday night and Monday he was sleeping throughout the day. The dose of Klonopin was decreased to 0.25 mg which he received on Monday night. Per patient's son, he slept through the night, and woke up at around 10 AM he had some light breakfast. He was more coherent, but difficult to deal with, as he would not eat refusing medications. Patient did not have any REM behavior/acting out. Patient's son showed me the video taken on his cell phone, when patient had se gabriel leg movements and body during sleep at night. This was videotaped by his son while patient was in the hospital in the current admission. He has not had those spells since being on Klonopin. No tremors or shaking noticed. Per patient's son report, before he came, he was walking although with short steps was getting around. He sometimes uses walker when he feels dizzy, although other times he would not use any device or a walker even "for months", per the report. He was quite independent and although his has to cut up things in his plate, and he would eat and take pills on his own. Objective - Vital Signs Vital signs: Vital Signs Temp 97.8 F 08/31/21 11:40 Pulse 85 08/31/21 11:40 Resp 18 08/31/21 11:40 BP 113/74 08/31/21 11:40 Pulse Ox 96 08/31/21 11:40 FiO2 21 08/29/21 15:45 Intake & Output 08/30/21 08/31/21 08/31/21 18:59 06:59 18:59 Intake Total 228 Output Total 701 Balance 228 -701 Weight 68.422 kg Intake: IV 10 Invasive Line 4 10 Oral 218 Output: Urine 700 Stool 1 Other: Voiding Method Diaper Diaper Diaper # Voids 4 2 1 # Bowel Movements 2 2 - Exam Patient is somnolent, slightly encephalopathic, but does wake up and follows commands. Patient states "I'm just interested in getting out of here". He is able to recognize his son Mr. Acosta. His speech is clear with no obvious aphasia or dysarthria. Pupils are equal, round and reacting to light. Visual vargas could not be tested. Face is symmetric and tongue protrudes the midline. Muscle strength appears normal in the arms. His strength is equal in the legs. Reflexes are 2 in the upper limbs, 2 in the lower limbs and plantars downgoing bilaterally. Tone is mild to moderately decreased on the right, mildly on the left. No obvious tremors at rest noted. Slightly bradykinetic. Cerebellar function difficult to assess. - Labs CBC & Chem 7: 08/29/21 06:45 08/31/21 11:36 Labs: Abnormal Lab Results - Last 24 Hours (Table) 08/30/21 08/31/21 Range/Units 07:07 11:36 Chloride 110 H (98-107) mmol/L Carbon Dioxide 21 L (22-30) mmol/L BUN 28 H (9-20) mg/dL Creatinine 1.37 H (0.66-1.25) mg/dL Glucose 117 H (74-99) mg/dL AST 62 H (17-59) U/L ALT 69 H (4-49) U/L Procalcitonin 0.11 H (0.02-0.09) ng/mL Microbiology - Last 24 Hours (Table) 08/24/21 17:32 Blood Culture - Final Blood No Growth after 144 hours Assessment and Plan Assessment: Encephalopathy likely due to medication effect (Steroids) and metabolic encephalopathy Also has component due to his advanced dementia. ---mentation improving compared to presentation but not back to baseline. Suspect Lewy Body Dementia over Idiopathic Parkinson's (from history that patient initially had dementia then parkinson's symptoms and has visual hallucination). His condition seems advanced REM sleep behavior disorder Mild acute kidney injury due to dehydration Urinary retention s/ martini cath History of Prostate disease s/p resection Plan: * Patient's somnolence has improved with decreasing dose of Klonopin down to 0.25 mg at bedtime. We will keep him on the same dose. He has not had any dream acting out since on Klonopin. * Dr. Gonzalez has discontinued Sinemet on 08/26/2021 related to visual hallucinations. If his mobility does not improve, then may have to resume Sinemet. * Continue melatonin 3 mg at bedtime. * B12 1290, TSH is normal 1.98. Ammonia <9. Coronal while is negative. CT head showed no acute process. * EEG shows background slowing consistent with mild to moderate encephalopathy. No epileptiform activity. * MRI brain showed no acute abnormality. I personally reviewed MRI, shows significant generalized atrophy, prominence of ventricles, but appears consistent with amount of cortical atrophy. Small vessel disease. No acute process. * Discussed with patient's sons and primary physician in detail.
[2021-09-01] MEDS: TAMSULOSIN 0.4 MG CAP.ER.24H PO SCH (17:20)
[2021-09-01] MEDS: allopurinoL 100 MG TAB PO SCH (17:20)
--- NOTE | 2021-09-01 19:53 | P.PN ---
Subjective This is a pleasant 81 minute with past medical history of : Dementia, Pneumonia, Prostate Disorder status post prostate surgical removal, Parkinson disease Presents because of cough and subjective fever and generalized weakness. Patient somewhat disappointed historian and information was obtained with the help of his son they'll at bedside. Family stated that patient has been complaining of from cough as well as his , so they took him to the clinic in [place] which referred him to the hospital for his weakness. As per son patient has been having this cough and for the last 3 days and it is associated in the beginning with sore throat. Also he had some runny nose but the son states that this is a chronic. Currently no sore throat, no chest pain or dyspnea at rest. Patient denies fever. No diarrhea or vomiting Her family stated that patient have difficulty getting up from chair or walking, he started using her walker the last few days Also patient looks confused. The family also does not look much concerned because this been happening up and down. Patient knows he is in the hospital but could not tell which hospital or sitting, he is disoriented to time and person. He thought his son they'll at bedside is his brother Johnny. Patient also has no insight into his illness Patient also has history of Parkinson disease for many years, he has mild resting tremor today. Patient also complaining of from difficulty passing urine but no dysuria. No smoking, alcohol or illicit tracts Patient is hemodynamically stable. He is afebrile. Labs including CBC showed only mild lymphopenia, BMP showing mildly elevated creatinine 1.29 compared to baseline of 1.1. Rest of BMP and liver enzymes are unremarkable. Troponin is negative less than 0.012. ProBNP is negative at 325. Urinalysis is negative. Coronavirus and influenza viruses are undetected EKG showing junctional rhythm While chest x-ray showing congestive heart failure with small pleural effusion as per report On admission patient received 1 dose of ceftriaxone. He was started on 08/24/2021 Patient today still confused, he has difficulty holding stop because of his worsening tremors in both upper and lower extremities as well as his head. It looks more stiff. This could be related to his worsening Parkinson before we going to consult neurology service. Repeat chest x-ray showed clearing of pulmonary congestion and interstitial i nfiltrates per radiologist. Echocardiogram showing preserved ejection fraction 55-60%, CT of the brain is negative for acute process. Chest x-ray showed clearing of pulmonary congestion with interstitial infiltrates improved radiologist. Poorcalcitonin is not significantly elevated and it is only at 0.11. No fever. No significant tachycardia or tachypnea. His medication. He was started on Solu-Medrol and antibiotics changed to Zosyn. Also patient will be transferred to Discussed with the son at bedside. 08/25/2021 I assessed the patient twice first occurred in the morning and later on together with the neurologist, and both occasions the Monday was at bedside. Patient today is more confused, he does not follow commands or answer questions, he has tremor and abnormal jerking movements of both of upper and lower extremities especially at rest but more patient tried to move or patient provoked. Patient withdrawal to painful stimuli. No abnormal posters. Patient paid attention and opens eyes when call his name. Neurologist on the case and recommended EEG which shows no seizure-like activity. There is [id number] encephalopathy. Repeat his x-ray showing no consolidation and was reviewed by myself. Patient remains on Zosyn and we will repeatcalcitonin also we will repeat other labs. Repeat CBC, BMP magnesium, liver enzymes and poorcalcitonin. B12, hemoglobin A1c, folic acid and TSH were unremarkable. Echocardiogram showed ejection fraction of 55-60%. Suspicion of infection is low however patient tripped on antibiotic. Possibility patient has last dementia and Parkinson disease, also with may be affected by medication. Therefore steroids was discontinued today. Patient on high-dose of donpezil , memantine and Sinemet. 08/26/2021 Patient is more calm today, less confused, he is a sleepy and wakes up to verbal stimuli, he answers questions and follow commands more appropriately compared to yesterday. He is forgetful, he could not recognize his son at bedside No evidence of cellulitis, he has some mild abdominal tenderness especially on the right side short of its significance however we going to recommend computed tomography scan of the abdomen with oral contrast. Also his creatinine went up to 1.6 from 1.2. We lowered his IV fluids D5 normal saline down to 50 mL per hour. Also will check bladder scan was more than 300 with evidence of ureteral retention. We start Flomax and consider straight cath versus Menard catheter Discussed with family to encourage reorientation to the patient reacted He is eating well and tolerates diet, he finished 50-75% of his diet today. Neurology input is appreciated, Sinemet was discontinued. Steroids was discontinued also from yesterday which might contribute to patient clinical picture. Patient was started on melatonin and small dose of Klonopin and we will keep monitoring 08/27/2021 Both brothers were at bedside today together with the neurologist while examining the patient. As per brothers yesterday evening patient was more awake and he had good conversation with brothers, and he couldn't recognize their names correctly. However this morning is again more confused which is goes with delirium secondary to toxic metabolic encephalopathy. MRI of the brain is negative for acute process or infarct or ischemia. But showing age-related atrophy and chronic small vessel ischemia. Creatinine actually is trending down today 1.6 down to 1.4. Chest x-ray showing no acute changes but poorcalcitonin is trending down 0.15 showing improvement in his infection which is most likely pneumonia seen on CAT scan of the abdomen yesterday. Patient remains on Zosyn. Patient has evidence of urine retention which is resolved after a pleasant Menard catheter. This may be contributing to altered mental status. We'll start Flomax as well. Once this might benefit from a urologist as an outpatient. Contact information placed in the discharge instructions 08/28/2021 Patient awake, somewhat sleepy and lethargic but he knows his name and he was in the hospital but he was disoriented worse hours, today his clinical picture similar to the day he came to the hospital. He denies any specific other symptoms. I discussed the case with neurology today. Patient continued on clonidine and melatonin for REM sleep behavioral disorder. Other than that vitals are stable. Brain MRI showing no acute abnormality just H related atrophy and chronic small vessel ischemia. Patient continued on Zosyn, normal saline at 50 mL per hour, melatonin and Klonopin as above, Sinemet and Aricept are discontinued. Still has Menard catheter for urinary retention There is suspicion patient is keep swallowing problems which might lead to aspiration, we'll ask for swallowing evaluation which is pending. Monday. In the meantime discussed with the staff to keep aspiration precautions. Discussed with the son at bedside Prognosis remains guarded 08/29/2021 Patient is still confused although it looks similar to presentation and improved compared to last 3-4 days ago. at bedside states that her father could recognize her although he had some confusion about the other information. Also patient has not been eating well, we'll do a swallow evaluation tomorrow. Continue with Menard catheter Creatinine stable or slightly better at 1.35. We will repeat labs tomorrow patient still on Zosyn, normal saline at 50 mL/h and melatonin and Klonopin 0.5 recommended by neurologist. Sinemet and Aricept were discontinued. Family were thinking of taking home tomorrow but they agree to stay in the hospital for now. Patient can be transferred out of select unit to the general medical floor with close monitoring. 08/30/2021 Patient still confused and sleepy although his mentation is walks and waning, no respiratory distress, no abdominal complaint, Menard catheter was discontinued, bladder scan today is 152-200, so he does not need another Menard catheter for now. Also he passed swallow evaluation with special diet, (dysphagia level 3 chopped/thin liquids. Further recommended small bites/sips, upright positioning with all PO intake and 1:1 assist. Pt may have straws) Histologic clumping in normal saline at 50 L/h, which a chest x-ray, no pulmonary congestion, no consolidation is breathing quietly. He finishes half of his meals I talked to both sons at bedside they haven't decided whether to take the patient home or ECF Possible discharge in 24-48 hours if he remains stable and keep improvement 08/31/2021 Patient is very sleepy today even after the dose of Klonopin lower 0.25 yesterday therefore we will control the dose of Klonopin tonight and keep monitoring tomorrow. Also we will check labs today including BMP, liver enzymes and ammonia level. Other than that his poorcalcitonin actually is trending down at 0.11 and he is kept on Zosyn, no significant respiratory symptoms. And his abdomen looks soft. Bladder scan does not need Menard catheter now 09/01/2021 Patient is more awake compared to yesterday however he still confused, Klonopin dose remains at 0.25 and I discussed the case with the neurologist. Sinemet remains on hold for neurologist recommendation however her neurologist if that does not improve on patient cannot work then he may be placed back on Sinemet. Zosyn can be switched to Augmentin as his pneumonia is improving. No fever or leukocytosis. Discussed with son at bedside and agree with the plan. Patient pending placement Objective - Vital Signs Vital signs: Vital Signs Temp 98.6 F 09/01/21 04:00 Pulse 80 09/01/21 11:20 Resp 16 09/01/21 04:00 BP 151/86 09/01/21 04:00 Pulse Ox 95 09/01/21 04:00 FiO2 21 08/29/21 15:45 Intake & Output 08/31/21 09/01/21 09/01/21 18:59 06:59 18:59 Intake Total 0 125 Output Total 1001 1200 500 Balance -1001 -1200 -375 Intake: Oral 0 125 Output: Urine 1000 1200 500 Stool 1 Other: Voiding Method Diaper External Catheter # Voids 1 # Bowel Movements 2 - Exam -GENERAL: The patient is confused, but more awake, he does follow commands today, not in any acute distress. under developed and generalized weakness HEENT: Pupils are round and equally reacting to light. EOMI. No scleral icterus. No conjunctival pallor. Normocephalic, atraumatic. No pharyngeal erythema. No thyromegaly. CARDIOVASCULAR: S1 and S2 present. No murmurs, rubs, or gallops. PULMONARY: Chest is clear to auscultation, no wheezing or crackles. -ABDOMEN: Soft, mild right abdominal tenderness, no rebound tenderness, no guarding, nondistended, normoactive bowel sounds. No palpable organomegaly. MUSCULOSKELETAL: No joint swelling or deformity. EXTREMITIES: No cyanosis, clubbing, or pedal edema. -NEUROLOGICAL: Gross neurological examination did not reveal any focal deficits. Patient is confused, he does not follows commands. Cranial nerves are grossly intact. Meningeal signs are absent He has some generalized weakness but he denies any numbness SKIN: No rashes. No petechiae - Labs CBC & Chem 7: 08/29/21 06:45 08/31/21 11:36 Assessment and Plan Assessment: Altered mental status most likely metabolic and more toxic encephalopathy,on the top of advanced dementia. 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 Improved. Urinary retention, status post Menard catheter Mild abdominal pain, rule out intra-abdominal pathology Generalized weakness and deconditioning Mild acute kidney injury and dehydration, improved Alzheimer dementia History of Parkinson disease History of prostate disease status post surgical removal of the prostate History of pneumonia Plan: This is a pleasant 81 old male who presents with pneumonia and metabolic encephalopathy Change Zosyn and to Augmentin Discontinue sentiment Patient is started on melatonin. Resume Klonopin 0.25 Neurologist have cleared the patient for discharge Menard catheter discontinued and patient continued on Flomax, no further hypertension Family to decide about placement and social science instructor on the case labs and medication were reviewed.. Continue same treatment. Continue with symptomatic treatment. Resume home medication. Monitor lytes and vitals. DVT and GI prophylaxis. Further recommendations depends on the clinical course of the patient DVT prophylaxis: Subcutaneous heparin GI Prophylaxis: Pepcid PT/OT: Recommended subacute rehab, versus placed social science instructor consulted Prognosis is guarded
[2021-09-01] MEDS: polyethylene glycoL 3350 17 GM POWD.PACK PO SCH (21:38)
[2021-09-01] MEDS: clonazePAM 0.5 MG TAB PO SCH (21:39)
[2021-09-01] MEDS: MELATONIN 3 MG TABLET PO SCH (21:39)
[2021-09-01] MEDS: LATANOPROST 0.005% OPHTH DROPS 2.5 ML BTL BOTH EYES SCH (21:40)
[2021-09-01] MEDS: DEXTROSE 5%-0.9% NACL 1,000 ML IV SCH (21:48)
[2021-09-02] MEDS: FAMOTIDINE 20 MG TAB PO SCH (07:12)
[2021-09-02] MEDS: CHOLECALCIFEROL 25 MCG (1000 IU) TABLET PO SCH (07:12)
[2021-09-02] MEDS: HEPARIN SODIUM,PORCINE/PF 5,000 UNIT/0.5 ML SYRINGE SQ SCH ×2 (07:12→22:45)
[2021-09-02] MEDS: MEMANTINE 10 MG TAB PO SCH ×2 (07:12→22:18)
[2021-09-02] MEDS: TIMOLOL 0.5% OPHTH DROPS 5 ML BTL BOTH EYES SCH (07:13)
[2021-09-02] MEDS: IPRATROPIUM-ALBUTEROL 3 ML NEB INHALATION SCH ×5 (08:19→19:52)
[2021-09-02] MEDS: BUDESONIDE 1 MG/2 ML NEBU INHALATION SCH ×3 (08:19→19:52)
[2021-09-02] MEDS ORDERED: CARBIDOPA-LEVODOPA 25-100 MG 1 EACH TAB PO STA (14:10)
[2021-09-02] MEDS: TAMSULOSIN 0.4 MG CAP.ER.24H PO SCH (17:20)
[2021-09-02] MEDS: allopurinoL 100 MG TAB PO SCH (17:20)
--- NOTE | 2021-09-02 20:30 | P.PN ---
Subjective This is a pleasant 81 minute with past medical history of : Dementia, Pneumonia, Prostate Disorder status post prostate surgical removal, Parkinson disease Presents because of cough and subjective fever and generalized weakness. Patient somewhat disappointed historian and information was obtained with the help of his son they'll at bedside. Family stated that patient has been complaining of from cough as well as his , so they took him to the clinic in [place] which referred him to the hospital for his weakness. As per son patient has been having this cough and for the last 3 days and it is associated in the beginning with sore throat. Also he had some runny nose but the son states that this is a chronic. Currently no sore throat, no chest pain or dyspnea at rest. Patient denies fever. No diarrhea or vomiting Her family stated that patient have difficulty getting up from chair or walking, he started using her walker the last few days Also patient looks confused. The family also does not look much concerned because this been happening up and down. Patient knows he is in the hospital but could not tell which hospital or sitting, he is disoriented to time and person. He thought his son they'll at bedside is his brother Johnny. Patient also has no insight into his illness Patient also has history of Parkinson disease for many years, he has mild resting tremor today. Patient also complaining of from difficulty passing urine but no dysuria. No smoking, alcohol or illicit tracts Patient is hemodynamically stable. He is afebrile. Labs including CBC showed only mild lymphopenia, BMP showing mildly elevated creatinine 1.29 compared to baseline of 1.1. Rest of BMP and liver enzymes are unremarkable. Troponin is negative less than 0.012. ProBNP is negative at 325. Urinalysis is negative. Coronavirus and influenza viruses are undetected EKG showing junctional rhythm While chest x-ray showing congestive heart failure with small pleural effusion as per report On admission patient received 1 dose of ceftriaxone. He was started on 08/24/2021 Patient today still confused, he has difficulty holding stop because of his worsening tremors in both upper and lower extremities as well as his head. It looks more stiff. This could be related to his worsening Parkinson before we going to consult neurology service. Repeat chest x-ray showed clearing of pulmonary congestion and interstitial i nfiltrates per radiologist. Echocardiogram showing preserved ejection fraction 55-60%, CT of the brain is negative for acute process. Chest x-ray showed clearing of pulmonary congestion with interstitial infiltrates improved radiologist. Poorcalcitonin is not significantly elevated and it is only at 0.11. No fever. No significant tachycardia or tachypnea. His medication. He was started on Solu-Medrol and antibiotics changed to Zosyn. Also patient will be transferred to Discussed with the son at bedside. 08/25/2021 I assessed the patient twice first occurred in the morning and later on together with the neurologist, and both occasions the Monday was at bedside. Patient today is more confused, he does not follow commands or answer questions, he has tremor and abnormal jerking movements of both of upper and lower extremities especially at rest but more patient tried to move or patient provoked. Patient withdrawal to painful stimuli. No abnormal posters. Patient paid attention and opens eyes when call his name. Neurologist on the case and recommended EEG which shows no seizure-like activity. There is [id number] encephalopathy. Repeat his x-ray showing no consolidation and was reviewed by myself. Patient remains on Zosyn and we will repeatcalcitonin also we will repeat other labs. Repeat CBC, BMP magnesium, liver enzymes and poorcalcitonin. B12, hemoglobin A1c, folic acid and TSH were unremarkable. Echocardiogram showed ejection fraction of 55-60%. Suspicion of infection is low however patient tripped on antibiotic. Possibility patient has last dementia and Parkinson disease, also with may be affected by medication. Therefore steroids was discontinued today. Patient on high-dose of donpezil , memantine and Sinemet. 08/26/2021 Patient is more calm today, less confused, he is a sleepy and wakes up to verbal stimuli, he answers questions and follow commands more appropriately compared to yesterday. He is forgetful, he could not recognize his son at bedside No evidence of cellulitis, he has some mild abdominal tenderness especially on the right side short of its significance however we going to recommend computed tomography scan of the abdomen with oral contrast. Also his creatinine went up to 1.6 from 1.2. We lowered his IV fluids D5 normal saline down to 50 mL per hour. Also will check bladder scan was more than 300 with evidence of ureteral retention. We start Flomax and consider straight cath versus Menard catheter Discussed with family to encourage reorientation to the patient reacted He is eating well and tolerates diet, he finished 50-75% of his diet today. Neurology input is appreciated, Sinemet was discontinued. Steroids was discontinued also from yesterday which might contribute to patient clinical picture. Patient was started on melatonin and small dose of Klonopin and we will keep monitoring 08/27/2021 Both brothers were at bedside today together with the neurologist while examining the patient. As per brothers yesterday evening patient was more awake and he had good conversation with brothers, and he couldn't recognize their names correctly. However this morning is again more confused which is goes with delirium secondary to toxic metabolic encephalopathy. MRI of the brain is negative for acute process or infarct or ischemia. But showing age-related atrophy and chronic small vessel ischemia. Creatinine actually is trending down today 1.6 down to 1.4. Chest x-ray showing no acute changes but poorcalcitonin is trending down 0.15 showing improvement in his infection which is most likely pneumonia seen on CAT scan of the abdomen yesterday. Patient remains on Zosyn. Patient has evidence of urine retention which is resolved after a pleasant Menard catheter. This may be contributing to altered mental status. We'll start Flomax as well. Once this might benefit from a urologist as an outpatient. Contact information placed in the discharge instructions 08/28/2021 Patient awake, somewhat sleepy and lethargic but he knows his name and he was in the hospital but he was disoriented worse hours, today his clinical picture similar to the day he came to the hospital. He denies any specific other symptoms. I discussed the case with neurology today. Patient continued on clonidine and melatonin for REM sleep behavioral disorder. Other than that vitals are stable. Brain MRI showing no acute abnormality just H related atrophy and chronic small vessel ischemia. Patient continued on Zosyn, normal saline at 50 mL per hour, melatonin and Klonopin as above, Sinemet and Aricept are discontinued. Still has Menard catheter for urinary retention There is suspicion patient is keep swallowing problems which might lead to aspiration, we'll ask for swallowing evaluation which is pending. Monday. In the meantime discussed with the staff to keep aspiration precautions. Discussed with the son at bedside Prognosis remains guarded 08/29/2021 Patient is still confused although it looks similar to presentation and improved compared to last 3-4 days ago. at bedside states that her father could recognize her although he had some confusion about the other information. Also patient has not been eating well, we'll do a swallow evaluation tomorrow. Continue with Menard catheter Creatinine stable or slightly better at 1.35. We will repeat labs tomorrow patient still on Zosyn, normal saline at 50 mL/h and melatonin and Klonopin 0.5 recommended by neurologist. Sinemet and Aricept were discontinued. Family were thinking of taking home tomorrow but they agree to stay in the hospital for now. Patient can be transferred out of select unit to the general medical floor with close monitoring. 08/30/2021 Patient still confused and sleepy although his mentation is walks and waning, no respiratory distress, no abdominal complaint, Menard catheter was discontinued, bladder scan today is 152-200, so he does not need another Menard catheter for now. Also he passed swallow evaluation with special diet, (dysphagia level 3 chopped/thin liquids. Further recommended small bites/sips, upright positioning with all PO intake and 1:1 assist. Pt may have straws) Histologic clumping in normal saline at 50 L/h, which a chest x-ray, no pulmonary congestion, no consolidation is breathing quietly. He finishes half of his meals I talked to both sons at bedside they haven't decided whether to take the patient home or ECF Possible discharge in 24-48 hours if he remains stable and keep improvement 08/31/2021 Patient is very sleepy today even after the dose of Klonopin lower 0.25 yesterday therefore we will control the dose of Klonopin tonight and keep monitoring tomorrow. Also we will check labs today including BMP, liver enzymes and ammonia level. Other than that his poorcalcitonin actually is trending down at 0.11 and he is kept on Zosyn, no significant respiratory symptoms. And his abdomen looks soft. Bladder scan does not need Menard catheter now 09/01/2021 Patient is more awake compared to yesterday however he still confused, Klonopin dose remains at 0.25 and I discussed the case with the neurologist. Sinemet remains on hold for neurologist recommendation however her neurologist if that does not improve on patient cannot work then he may be placed back on Sinemet. Zosyn can be switched to Augmentin as his pneumonia is improving. No fever or leukocytosis. Discussed with son at bedside and agree with the plan. Patient pending placement 09/02/2021 Patient today showing more severe signs and symptoms of Parkinson disease. He has a mask face, he has melatonin his voice, he has rigidity in the upper extremities, recent trauma and cogwheel movement of his wrist. I discussed the case with neurologist Dr. Leroy and he agrees to start the patient back on his Sinemet. i Signed his pediatric social worker papers for placement today. His pneumonia is resolved and patient switched to oral antibiotic with Augmentin. Think patient has passed swallow evaluation. And they agree that the infection the steroids made him worse and now with controlled when he came back on his Parkinson disease treatment. Given his advanced age most likely he has advanced arcus and disease and sewn even the sinemet will not be working well for him And suspended discharge in 24-48 hours once placement is achieved Objective - Vital Signs Vital signs: Vital Signs Temp 97.9 F 09/02/21 07:38 Pulse 92 09/02/21 08:43 Resp 18 09/02/21 07:38 BP 139/87 09/02/21 07:38 Pulse Ox 96 09/02/21 07:38 FiO2 21 08/29/21 15:45 Intake & Output 09/01/21 09/02/21 09/02/21 18:59 06:59 18:59 Intake Total 961 296 Output Total 950 500 Balance 11 -500 296 Intake: IV 600 Dextrose 5%-0.9% NaCl 1, 600 000 ml @ 50 mls/hr IV . Q20H [facility] Rx#:[id number] Oral 361 296 Output: Urine 950 500 Other: Voiding Method External Catheter # Bowel Movements 0 - Exam -GENERAL: The patient is confused, but more awake, he does follow commands today, not in any acute distress. under developed and generalized weakness HEENT: Pupils are round and equally reacting to light. EOMI. No scleral icterus. No conjunctival pallor. Normocephalic, atraumatic. No pharyngeal erythema. No thyromegaly. CARDIOVASCULAR: S1 and S2 present. No murmurs, rubs, or gallops. PULMONARY: Chest is clear to auscultation, no wheezing or crackles. -ABDOMEN: Soft, mild right abdominal tenderness, no rebound tenderness, no guarding, nondistended, normoactive bowel sounds. No palpable organomegaly. MUSCULOSKELETAL: No joint swelling or deformity. EXTREMITIES: No cyanosis, clubbing, or pedal edema. -NEUROLOGICAL: Gross neurological examination did not reveal any focal deficits. Patient is confused, he does not follows commands. Cranial nerves are grossly intact. Meningeal signs are absent He has some generalized weakness but he d enies any numbness SKIN: No rashes. No petechiae - Labs CBC & Chem 7: 08/29/21 06:45 08/31/21 11:36 Assessment and Plan Assessment: Altered mental status most likely metabolic and more toxic encephalopathy,on the top of advanced dementia. 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 Improved. Urinary retention, status post Menard catheter Mild abdominal pain, rule out intra-abdominal pathology Generalized weakness and deconditioning Mild acute kidney injury and dehydration, improved Alzheimer dementia History of Parkinson disease History of prostate disease status post surgical removal of the prostate History of pneumonia Plan: This is a pleasant 81 old male who presents with pneumonia and metabolic encephalopathy Continue with Augmentin Resume sentiment, discussed with the neurologist and he agrees Patient is started on melatonin. Resume Klonopin 0.25 Neurologist have cleared the patient for discharge Menard catheter discontinued and patient continued on Flomax, no further hypertension Family to decide about placement and pediatric social worker on the case labs and medication were reviewed.. Continue same treatment. Continue with symptomatic treatment. Resume home medication. Monitor lytes and vitals. DVT and GI prophylaxis. Further recommendations depends on the clinical course of the patient DVT prophylaxis: Subcutaneous heparin GI Prophylaxis: Pepcid PT/OT: Recommended subacute rehab, versus placed pediatric social worker consulted Prognosis is guarded, including long-term prognosis as he is getting close to end stage Parkinson disease given his age, although when asked with some he could not tell along patient has been Parkinson disease
[2021-09-02 21:38] LABS: ALT 7 U/L (4-49); AST 44 U/L (17-59); African American GFR (CKD) 51 (>60 ml/min/1.73 sqM); Albumin 3.5 g/dL (3.5-5.0); Albumin/Globulin Ratio 1.3; Alkaline Phosphatase 64 U/L (38-126); Anion Gap 9 mmol/L; Blood Urea Nitrogen 22 mg/dL (9-20); Calcium 9.2 mg/dL (8.4-10.2); Carbon Dioxide 23 mmol/L (22-30); Chloride 107 mmol/L (98-107); Globulin 2.6 g/dL; Glucose 112 mg/dL (74-99); Non-African American GFR(CKD) 44 (>60 ml/min/1.73 sqM); Potassium 4.2 mmol/L (3.5-5.1); Sodium 139 mmol/L (137-145); Total Bilirubin 0.3 mg/dL (0.2-1.3); Total Protein 6.1 g/dL (6.3-8.2)
--- NOTE | 2021-09-02 21:46 | XR ---
EXAMINATION TYPE: XR chest 1V DATE OF EXAM: 09/02/2021 9:41 PM COMPARISON: Chest radiographs from 08/30/2021. TECHNIQUE: XR chest 1V Frontal view of the chest. CLINICAL INDICATION:Male, 81 years old with history of COUGH; FINDINGS: Lungs/Pleura: There is no evidence of pleural effusion, focal consolidation, or pneumothorax. Pulmonary vascularity: Pulmonary vascular congestion. Heart/mediastinum: Cardiomediastinal silhouette is enlarged and stable. Musculoskeletal: No acute osseous pathology. IMPRESSION: Cardiomegaly and mild pulmonary vascular congestion. Correlate with BNP for congestive heart failure.
[2021-09-02 22:10] LABS: Basophils # (A) 0.1 k/uL (0-0.2); Basophils % (A) 2 %; Eosinophils # (A) 0.2 k/uL (0-0.7); Eosinophils % (A) 3 %; HCT 44.8 % (39.0-53.0); HGB 14.3 gm/dL (13.0-17.5); Lymphocytes # (A) 0.7 k/uL (1.0-4.8); Lymphocytes % (A) 10 %; MCH 28.9 pg (25.0-35.0); MCV 90.6 fL (80.0-100.0); Mean Platelet Volume 8.2; Monocytes # (A) 0.7 k/uL (0-1.0); Monocytes % (A) 10 %; Neutrophils # (A) 5.3 k/uL (1.3-7.7); Neutrophils % (A) 74 %; Platelet Count 238 k/uL (150-450); RBC 4.95 m/uL (4.30-5.90); RDW 12.8 % (11.5-15.5); WBC 7.2 k/uL (3.8-10.6)
[2021-09-02] MEDS: clonazePAM 0.5 MG TAB PO SCH (22:17)
[2021-09-02] MEDS: MELATONIN 3 MG TABLET PO SCH (22:18)
[2021-09-02] MEDS: LATANOPROST 0.005% OPHTH DROPS 2.5 ML BTL BOTH EYES SCH (22:19)
[2021-09-02] MEDS: polyethylene glycoL 3350 17 GM POWD.PACK PO SCH (22:19)
[2021-09-02 23:53] LABS: Appearance,Urine Clear (Clear); Bilirubin,Urine Negative (Negative); Blood,Urine Negative (Negative); Color,Urine Yellow; Glucose,Urine (UA) Negative (Negative); Ketones,Urine Negative (Negative); Leukocyte Esterase,Urine Negative (Negative); Nitrite,Urine Negative (Negative); Protein,Urine Trace (Negative); Specific Gravity,Urine 1.012 (1.001-1.035); Urobilinogen,Urine <2.0 mg/dL (<2.0)
[2021-09-03] MEDS: DEXTROSE 5%-0.9% NACL 1,000 ML IV SCH ×2 (00:51→09:06)
[2021-09-03 01:31] VITALS: RESP 18
[2021-09-03] MEDS ORDERED: CARBIDOPA-LEVODOPA 25-100 MG 1 EACH TAB PO SCH ×2 (08:00→13:00)
[2021-09-03] MEDS: IPRATROPIUM-ALBUTEROL 3 ML NEB INHALATION SCH ×2 (08:30→12:27)
[2021-09-03] MEDS: BUDESONIDE 1 MG/2 ML NEBU INHALATION SCH (08:30)
--- NOTE | 2021-09-03 08:54 | P.PN ---
Subjective Progress Note Date: 09/01/21 09/01/2021: Patient was seen for follow-up. Patient's one of the son was present today. Patient's son mentions that he was taking Sinemet 25/100, 1 tablet at 8 AM and a second one tablet 5 hours later at 1 PM. He has been on this regimen since January 2021. Patient's son mentions that he was elevated from 12 midnight to 1 AM, then tried to pull on the catheter. He was again awake at 3:30 AM, and stayed up for 1 hour. He was confused. He was finally up at 6 AM. He was not agitated, not coherent not jerking. He is slightly more talkative. He sat on the chair 2 times. Patient states "I got an issue". 08/31/2021: Patient was seen for a follow-up. Patient's 2 sons were present today. Patient initially seen by Dr. Jeferson Gonzalez. Please refer to his note for details. Patient came to the hospital because of confusion. Patient has history of Lewy body dementia, diagnosed by outside neurologist as Parkinson's disease, although Dr. Gonzalez felt it was more of diffuse Lewy body dementia. Patient has history of REM sleep behavior disorder. Dr. Gonzalez started patient on melatonin and clonazepam 0.5 mg at bedtime. The first dose he received was on Monday night and Monday he was sleeping throughout the day. The dose of Klonopin was decreased to 0.25 mg which he received on Monday night. Per patient's son, he slept through the night, and woke up at around 10 AM he had some light prema kfast. He was more coherent, but difficult to deal with, as he would not eat refusing medications. Patient did not have any REM behavior/acting out. Patient's son showed me the video taken on his cell phone, when patient had severe leg movements and body during sleep at night. This was videotaped by his son while patient was in the hospital in the current admission. He has not had those spells since being on Klonopin. No tremors or shaking noticed. Per patient's son report, before he came, he was walking although with short steps was getting around. He sometimes uses walker when he feels dizzy, although other times he would not use any device or a walker even "for months", per the report. He was quite independent and although his has to cut up things in his plate, and he would eat and take pills on his own. Objective - Vital Signs Vital signs: Vital Signs Temp 98.8 F 09/01/21 13:45 Pulse 74 09/01/21 13:45 Resp 18 09/01/21 13:45 BP 152/96 09/01/21 13:45 Pulse Ox 94 L 09/01/21 13:45 FiO2 21 08/29/21 15:45 Intake & Output 08/31/21 09/01/21 09/01/21 18:59 06:59 18:59 Intake Total 0 243 Output Total 1001 1200 950 Balance -1001 -1200 -707 Intake: Oral 0 243 Output: Urine 1000 1200 950 Stool 1 Other: Voiding Method Diaper External Catheter # Voids 1 # Bowel Movements 2 - Exam Patient is more awake, slightly encephalopathic, but does wake up and follows commands. Patient states "I got an issue". His speech is clear with no obvious aphasia or dysarthria. Pupils are equal, round and reacting to light. Visual vargas could not be tested. Face is symmetric and tongue protrudes the midline. Muscle strength appears normal in the arms. His strength is equal in the legs. Reflexes are 2 in the upper limbs, 2 in the lower limbs and plantars downgoing bilaterally. Tone is moderately increased on the right, mild to moderately on the left. No obvious tremors at rest noted. Slightly bradykinetic. Cerebellar function difficult to assess. - Labs CBC & Chem 7: 09/02/21 21:08 09/02/21 21:08 Assessment and Plan Assessment: Encephalopathy likely due to medication effect (Steroids) and metabolic encephalopathy Also has component due to his advanced dementia. ---mentation improving compared to presentation but not back to baseline. Suspect Lewy Body Dementia over Idiopathic Parkinson's (from history that patient initially had dementia then parkinson's symptoms and has visual halluc ination). His condition seems advanced REM sleep behavior disorder Mild acute kidney injury due to dehydration Urinary retention s/ martini cath History of Prostate disease s/p resection Plan: * Patient's somnolence has improved with decreasing dose of Klonopin down to 0.25 mg at bedtime. We will keep him on the same dose. He has not had any dream acting out since on Klonopin. * Dr. Gonzalez has discontinued Sinemet on 08/26/2021 related to visual hallucinations. If his mobility does not improve, then may have to resume Sinemet. Tone is slightly more increased today as compared to yesterday. * Continue melatonin 3 mg at bedtime. * B12 1290, TSH is normal 1.98. Ammonia <9. Soto virus is negative. CT head showed no acute process. * EEG shows background slowing consistent with mild to moderate encephalopathy. No epileptiform activity. * MRI brain showed no acute abnormality. I personally reviewed MRI, shows significant generalized atrophy, prominence of ventricles, but appears consistent with amount of cortical atrophy. Small vessel disease. No acute process. * Discussed with patient's sons and primary physician in detail.
[2021-09-03 09:00] VITALS: BP 99/53; TEMP 97.6
[2021-09-03] MEDS: FAMOTIDINE 20 MG TAB PO SCH (09:06)
[2021-09-03] MEDS: CHOLECALCIFEROL 25 MCG (1000 IU) TABLET PO SCH (09:06)
[2021-09-03] MEDS: MEMANTINE 10 MG TAB PO SCH (09:06)
[2021-09-03] MEDS: HEPARIN SODIUM,PORCINE/PF 5,000 UNIT/0.5 ML SYRINGE SQ SCH (09:06)
[2021-09-03] MEDS: TIMOLOL 0.5% OPHTH DROPS 5 ML BTL BOTH EYES SCH (09:07)
--- NOTE | 2021-09-03 09:09 | P.PN ---
Subjective Progress Note Date: 09/02/21 09/02/2021: Patient's one of the son was present today. Apparently I have discussed with Dr. Mendoza and both of us agree that patient is getting more stiff, more rigid, likely because of stopping Sinemet. We decided to resume Sinemet, to help with his mobility. Patient's son was upset why the medication was started because patient was twitching, leg jerking with the Sinemet previously, that was discontinued by Dr. Gonzalez. I informed him the reason that Sinemet was resumed. Patient's son states that when he came in at 3 PM, he was "like this", worse than yesterday, not responding as well, not talking as well as yesterday. It appears that patient has been generally much worse throughout the day, whereas he received 2 tablets of Sinemet at 5:20 PM (condition was worse even before he received his Sinemet.) Patient's son says that he is not eating, more thrashing. Last night he was more alert, was making eye contact, coughing. He was able to take a couple drinks. He was able to take medication crushed with applesauce. Today he has not ate. He is spitting it out. He is receiving D5 0.45 Saline drip. 09/01/2021: Patient was seen for follow-up. Patient's one of the son was present today. Patient's son mentions that he was taking Sinemet 25/100, 1 tablet at 8 AM and a second one tablet 5 hours later at 1 PM. He has been on this regimen since January 2021. Patient's son mentions that he was elevated from 12 midnight to 1 AM, then tried to pull on the catheter. He was again awake at 3:30 AM, and stayed up for 1 hour. He was confused. He was finally up at 6 AM. He was not agitated, not coherent not jerking. He is slightly more talkative. He sat on the chair 2 times. Patient states "I got an issue". 08/31/2021: Patient was seen for a follow-up. Patient's 2 sons were present today. Patient initially seen by Dr. Jeferson Gonzalez. Please refer to his note for details. Patient came to the hospital because of confusion. Patient has history of Lewy body dementia, diagnosed by outside neurologist as Parkinson's disease, although Dr. Gonzalez felt it was more of diffuse Lewy body dementia. Patient has history of REM sleep behavior disorder. Dr. Gonzalez started patient on melatonin and clonazepam 0.5 mg at bedtime. The first dose he received was on Monday night and Monday he was sleeping throughout the day. The dose of Klonopin was decreased to 0.25 mg which he received on Monday night. Per patient's son, he slept through the night, and woke up at around 10 AM he had some light breakfast. He was more coherent, but difficult to deal with, as he would not eat refusing medications. Patient did not have any REM behavior/acting out. Patient's son showed me the video taken on his cell phone, when patient had severe leg movements and body during sleep at night. This was videotaped by his son while patient was in the hospital in the current admission. He has not had those spells since being on Klonopin. No tremors or shaking noticed. Per patient's son report, before he came, he was walking although with short steps was getting around. He sometimes uses walker when he feels dizzy, although other times he would not use any device or a walker even "for months", per the report. He was quite independent and although his has to cut up things in his plate, and he would eat and take pills on his own. Objective - Vital Signs Vital signs: Vital Signs Temp 97.9 F 09/03/21 01:31 Pulse 78 09/03/21 08:39 Resp 18 09/03/21 08:39 BP 109/69 09/03/21 01:31 Pulse Ox 96 09/03/21 08:31 FiO2 21 08/29/21 15:45 Intake & Output 09/02/21 09/03/21 09/03/21 18:59 06:59 18:59 Intake Total 414 Output Total 400 Balance 14 Intake: Oral 414 Output: Urine 400 Other: Voiding Method External Catheter # Bowel Movements 0 - Exam Patient is more encephalopathic, does not follow much commands. He makes some eye contact. Patient not able to tell name of his son, which he was able to do couple days before. I don't believe this worsening is from Sinemet, as he has been like this since the morning, and patient's son witnessed that he was "like this" when he came in at 3 PM and patient did not receive his Sinemet up until 5:20 PM. Tone is increased moderately bilaterally with some clasp-knifing. Pupils are equal, round and reacting to light. Visual vargas could not be tested. Face is symmetric and tongue protrudes the midline. Muscle strength appears normal in the arms. His strength is equal in the legs. Reflexes are 2 in the upper limbs, 2 in the lower limbs and plantars downgoing bilaterally. He appears bradykinetic. Cerebellar function difficult to assess. - Labs CBC & Chem 7: 09/02/21 21:08 09/02/21 21:08 Labs: Abnormal Lab Results - Last 24 Hours (Table) 09/02/21 09/02/21 09/02/21 Range/Units 21:08 21:08 23:33 Lymphocytes # 0.7 L (1.0-4.8) k/uL BUN 22 H (9-20) mg/dL Creatinine 1.47 H (0.66-1.25) mg/dL Glucose 112 H (74-99) mg/dL Total Protein 6.1 L (6.3-8.2) g/dL Urine Protein Trace H (Negative) Assessment and Plan Assessment: Encephalopathy likely due to medication effect (Steroids) and metabolic encephalopathy Also has component due to his advanced dementia. ---mentation improving compared to presentation but not back to baseline. Patient's encephalopathy has again gotten worse, unclear cause. Rule out infectious/metabolic process. Suspect Lewy Body Dementia over Idiopathic Parkinson's (from history that patient initially had dementia then parkinson's symptoms and has visual hallucination). His condition seems advanced REM sleep behavior disorder Mild acute kidney injury due to dehydration Urinary retention s/ martini cath History of Prostate disease s/p resection Plan: * Patient's encephalopathy seems to have gotten worse. We checked stat CBC, which is completely normal with WBC count 7.2, hemoglobin 14.3. Electrolytes are normal, BUN is improved 22, creatinine 1.47, slightly worse. Hepatic panel is normal. UA shows no infection. Chest x-ray revealed cardiomegaly and mild pulmonary vascular congestion. Correlate with BNP for congestive heart failure. No obvious metabolic cause is identified. We will stop Sinemet again as per patient's request. * Patient's somnolence has improved with decreasing dose of Klonopin down to 0.25 mg at bedtime. We will keep him on the same dose. He has not had any dream acting out since on Klonopin. * Dr. Gonzalez has discontinued Sinemet on 08/26/2021 related to visual hallucinat ions. * Continue melatonin 3 mg at bedtime. * B12 1290, TSH is normal 1.98. Ammonia <9. Soto virus is negative. CT head showed no acute process. * EEG shows background slowing consistent with mild to moderate encephalopathy. No epileptiform activity. * MRI brain showed no acute abnormality. I personally reviewed MRI, shows significant generalized atrophy, prominence of ventricles, but appears consistent with amount of cortical atrophy. Small vessel disease. No acute process. * Discussed with patient's son in detail.
--- NOTE | 2021-09-03 12:05 | P.DS ---
Providers Date of admission: 08/22/21 17:39 Attending physician: Curt Valentin Consults: 08/24/21 14:59 Consult Physician Routine Consulting Provider: Jeferson Gonzalez Consult Reason/Comments: worsening parkinson s/s Do you want consulting provider notified?: Yes 08/24/21 16:59 Consult Physician Routine Consulting Provider: Jeferson Gonzalez Consult Reason/Comments: worsening parkinson Do you want consulting provider notified?: Yes Primary care physician: Valencia Bolivar Hospital Course: Diagnoses Bilateral respiratory infiltrate suspicious for aspiration pneumonia. Improved. Altered mental status most likely metabolic and more toxic encephalopathy,on the top of advanced dementia and advanced Parkinson disease. Patient condition worsened with steroids as well as possible sentiment effect Worsening rest tremor , rigidity, akinesia, mask face and monotonous voice most likely related to Parkinson disease Possible lewy body dementia versus Alzheimer. Combination with vascular dementia given his chronic ischemic changes seen on the MRI of the brain Urinary retention, status post Menard catheter which is has to be replaced prior to discharge for urinary retention of 458 Generalized weakness and deconditioning Mild acute kidney injury , could be related to his obstructive uropathy and chronic kidney disease REM sleep behavioral disorder, kept on melatonin and clonidine History of prostate disease status post surgical removal of the prostate History of pneumonia Hospital course: This is a pleasant 81 minute with past medical history of : Dementia, Pneumonia, Prostate Disorder status post prostate surgical removal, Parkinson disease Presents because of cough and subjective fever and generalized weakness. Patient was found to have pneumonia, with aspiration pneumonia and suspected he was treated with Zosyn and she showed interval improvement. His breathing is back to normal at baseline now and repeat chest x-ray showed clearance of the pneumonia. He will be discharged short course of oral antibiotics with Augmentin area he passed a swallow evaluation but he needs to pursue aspiration precaution given his significant for neurological disease Because of the pneumonia and steroids he got worsening of his neurodegenerative disease and Parkinson disease, Sinemet and Aricept were discontinued by neurologist at that time on admission. However family refused to restart Sinemet for now for concerns about visual hallucination he does sometimes. Also neurologist suspected REM behavioral disorder which is known to have it before therefore he was started on melatonin and Klonopin 0.25 which he tolerates well, however dose of 0.5 mg made him more sleepy Also he has evidence of urinary retention and Menard catheter was placed as well as Flomax. EEG did not show any epileptiform discharge but [id number] encephalopathy. On the day of discharge patient is awake alert he still have rigidity is still confused but quiet and calm. No respiratory distress. No other new complaints. Plan discussed case with the neurologist here for discharge. At home he was taken (sinemet 25-100 mg 1 pill daily at 8 AM and other 2 pills at 1 PM) both are held upon discharge upon family request Discussed the case with family at bedside every day. He agrees with the LAD and to place the patient for rehab upon discharge. Problems and management plan were discussed with the patient and they verbalized understanding and acceptance Patient was found stable and can be discharged to [facility] in guarded prognosis however he needs follow-up as an outpatient. Patient was instructed to follow up with PCP Dr. Bolivar within one week and patient agrees Patient was instructed to follow up with a neurologist in 1-2 weeks, family was to follow up with Dr. Jeferson Gonzalez and they have the contact information. Physical exam -Gen: patient is a awake, minimal interaction, monitor no specific, confused, no distress CVS: S1-S2, RRR, no murmur Lungs: B/L CTA, no wheezing Abdomen: soft, no distention, no tenderness, positive bowel sounds Extremity: no leg edema or induration -neurology: Awake and alert, he has stiffness and rigidity in the extremities with rest tremor and cogwheel rest tremor. Time spent more than 35 minutes Patient Condition at Discharge: Good Plan - Discharge Summary New Discharge Prescriptions: New clonazePAM [KlonoPIN] 0.25 mg PO HS #15 tab No Action polyethylene glycoL 3350 [Miralax] 17 gm PO HS Vitamin B-50 1 tab PO DAILY Latanoprost Ophth [Xalatan 0.005%] 1 drops BOTH EYES HS Cholecalciferol [Vitamin D3 (25 Mcg = 1000 Iu)] 50 mcg PO DAILY Timolol 0.5% Ophth Soln [Timoptic 0.5% Ophth Soln] 1 drop BOTH EYES DAILY Memantine HCl 10 mg PO BID Donepezil HCl [Aricept] 10 mg PO HS Turmeric Root Extract [Turmeric] 1,000 mg PO DAILY allopurinoL [Allopurinol] 100 mg PO W/SUPPER Carbidopa-Levodopa 25-100 mg [Sinemet 25-100] 1 tab PO DAILY@0800 Psyllium Husk (with Sugar) [Metamucil Powder] 1 dose PO HS Ginkgo Biloba [place] Extract [Ginkgo Biloba] 125 mg PO DAILY Carbidopa-Levodopa 25-100 mg [Sinemet 25-100] 2 tab PO DAILY@1300 Discharge Medication List Cholecalciferol [Vitamin D3 (25 Mcg = 1000 Iu)] 50 mcg PO DAILY 05/13/20 [History] Donepezil HCl [Aricept] 10 mg PO HS 05/13/20 [History] Latanoprost Ophth [Xalatan 0.005%] 1 drops BOTH EYES HS 05/13/20 [History] Memantine HCl 10 mg PO BID 05/13/20 [History] Timolol 0.5% Ophth Soln [Timoptic 0.5% Ophth Soln] 1 drop BOTH EYES DAILY 05/13/20 [History] Turmeric Root Extract [Turmeric] 1,000 mg PO DAILY 05/13/20 [History] Vitamin B-50 1 tab PO DAILY 05/13/20 [History] polyethylene glycoL 3350 [Miralax] 17 gm PO HS 05/13/20 [History] Carbidopa-Levodopa 25-100 mg [Sinemet 25-100] 1 tab PO DAILY@0800 08/22/21 [History] Carbidopa-Levodopa 25-100 mg [Sinemet 25-100] 2 tab PO DAILY@1300 08/22/21 [History] Ginkgo Biloba [place] Extract [Ginkgo Biloba] 125 mg PO DAILY 08/22/21 [History] Psyllium Husk (with Sugar) [Metamucil Powder] 1 dose PO HS 08/22/21 [History] allopurinoL [Allopurinol] 100 mg PO W/SUPPER 08/22/21 [History] clonazePAM [KlonoPIN] 0.25 mg PO HS #15 tab 09/02/21 [Rx] Follow up Appointment(s)/Referral(s): Petr Nettles MD [REFERRING] - 1 Week Uche Bernal MD [STAFF PHYSICIAN] - 1 Week Tyler Islas MD [Medical Doctor] - 1 Week Mouna Nettles MD [REFERRING] - 1 Week Jeferson Gonzalez MD [STAFF PHYSICIAN] - 1 Week Valencia Bolivar MD [Primary Care Provider] - 1-2 days Patient Instructions/Handouts: How to Choose and Use a Wheelchair (GEN), Wheel Chair Transfers (ED), Pneumonia (DC), Encephalopathy (DC), How to Transfer a Person Safely (DC) Activity/Diet/Wound Care/Special Instructions: dysphagia level 3 chopped/thin liquids. Further recommended small bites/sips, upright positioning with all PO intake and 1:1 assist. Pt may have straws activity is restricted till you see your doctor discharge instructions - for konopin 0.25 mg HS .... please notify to stop if persistantly somnolent
[2021-09-03 12:30] VITALS: PULSE 80
== END 2021-09-03 16:14 | disposition home or self-care (01) | DRG 177 ==
LOC: EC 13:52 → 4SSUR 17:39 → 5NMEDONC 21:12 → 3SCARD 08-24 22:11 → 4SSUR 09-01 18:09
PROVIDERS: ADMIT Hospitalist; ATTEND Hospitalist
DX: J69.0 Pneumonitis due to inhalation of food and vomit (principal); G92.8 Other toxic encephalopathy; N17.9 Acute kidney failure, unspecified; N13.9 Obstructive and reflux uropathy, unspecified; N18.9 Chronic kidney disease, unspecified; R13.10 Dysphagia, unspecified; I50.9 Heart failure, unspecified; G30.9 Alzheimer's disease, unspecified; G47.52 REM sleep behavior disorder; T50.905A Adverse effect of unspecified drugs, medicaments and biological substances, initial encounter; G47.10 Hypersomnia, unspecified; G47.33 Obstructive sleep apnea (adult) (pediatric); R33.9 Retention of urine, unspecified; D72.810 Lymphocytopenia; E86.0 Dehydration; G20 Parkinson's disease; F02.80 Dementia in other diseases classified elsewhere, unspecified severity, without behavioral disturbance, psychotic disturbance, mood disturbance, and anxiety; Z79.899 Other long term (current) drug therapy; Z85.828 Personal history of other malignant neoplasm of skin; Z87.01 Personal history of pneumonia (recurrent); Z20.822 Contact with and (suspected) exposure to COVID-19; Z90.79 Acquired absence of other genital organ(s)
CPT/HCPCS: 36415; 70450; 70551; 71045; 71046; 74176; 80048; 80053; 80076; 81003; 82140; 82607; 82746; 83605; 83735; 83880; 84145; 84443; 84484; 85025; 87040; 87070; 87205; 87502; 87635; 93005; 93306; 94640; 94760; 95816; 96374; 99285